=== PATIENT | female | born 1945 | race American Indian/Alaskan Native ===

== ENCOUNTER 2018-03-24 06:24 | Inpatient (IN) | payer MEDICARE ==
[2018-03-24 06:48] VITALS: BMI 30.8
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
--- NOTE | 2018-03-24 07:40 | CP.PCM.CON ---
History of Present Illness - History of Present Illness History of Present Illness: 72F with right hip DJD failed conservative mgmt and elected for THR. Cardiology clearance on the chart, hx of afib Patient is allergic to fruits/vegetables with high ascorbic acid content since child (oranges, tomatoes, pickles) No recent illness NO history of DVT/bleeding disorder, CAD/PVD, stents, CVA/TIA, seizure disorder Review of Systems - Review of Systems All systems: reviewed and no additional remarkable complaints except - Musculoskeletal Musculoskeletal: As Per HPI Past Patient History - Past Medical History & Family History Past Medical History?: Yes Past Family History: Reviewed and not pertinent - CARDIAC Hx Atrial Fibrillation: Yes (paroxysmal) Other/Comment: history of sinus bradycardia - MUSCULOSKELETAL/RHEUMATOLOGICAL Hx Herniated Disk: Yes Hx Osteoarthritis: Yes - SURGICAL HISTORY Hx Cataract Extraction: Yes Hx Cholecystectomy: Yes Hx Joint Replacement: Yes (R TKR) Hx Orthopedic Surgery: Yes (L rotator cuff) Hx Vascular Access Device: Yes (laminectomy 1992 1997) Meds Allergies/Adverse Reactions: Allergies Allergy/AdvReac Type Severity Reaction Status Date / Time vit C Allergy RASH Uncoded 03/24/18 06:46 - Medications Medications: Current Medications Tranexamic Acid 1,000 mg/ (Sodium Chloride) 110 mls @ 12.5 mls/hr IVPB Q2H [facility] Stop: 03/24/18 11:44 Physical Exam - Constitutional Appears: Well, No Acute Distress - Head Exam Head Exam: ATRAUMATIC - Neck Exam Neck exam: Positive for: Full Rom - Respiratory Exam Respiratory Exam: NORMAL BREATHING PATTERN - Cardiovascular Exam Additional comments: +DP/PT pulses calves soft NT neg homans 8mm RLE short leg length discrepancy +ROM ankle/toes sensation intact - Expanded Lower Extremities Exam Right Hip exam: shortening Knee exam: full ROM Ankle exam: FULL ROM Neuro vacular tendon exam: no vascular compromise - Neurological Exam Neurological exam: Alert, Oriented x3 - Psychiatric Exam Psychiatric exam: Normal Affect, Normal Mood - Skin Skin Exam: Dry, Intact, Normal Color, Warm Assessment & Plan - Assessment and Plan (Free Text) Assessment: 72F with right hip DJD failed conservative mgmt and elected for THR T&C NPO for OR cont home meds Surgery delayed due to leak in OR room for possibility of contamination. Patient had already received spinal and sedation, but had not been induced yet when leak was noted. Patient transferred to recovery. Per Dr. Andrade, surgery cancelled. All equipment needs to reprocessed, leak needs to be fixed, and room needs to be terminally cleaned. There is only one room that can accommodate the traction extension on the table. Patient notified of reason for cancelled per discussion with Dr. Andrade. Patient will be discharged home after recovered from spinal. Patient given rx for Tylenol with codeine per Dr. Andrade request. [place] RESIDENT DIRECTOR patient report reviewed, last rx 10/2017 Dr. Wilkinson for percocet #150. This physician per search has suspended license,so patient presumed to no longer be under any contract for pain mgmt. Patient counseled on the risks of addiction, physical or psychological dependence, and overdose associated with opioid drugs and the danger of taking opioid drugs with alcohol and other central nervous system depressants, and cautioned patient on storage and disposal. Addendum: rescheduled for 03/[address] Andrade. Admitted overnight. LEWIS Russell
[2018-03-24] MEDS ORDERED: Lactated Ringer's 1,000 ML IV ONE (07:45)
[2018-03-24] MEDS ORDERED: ePHEDrine 50 mg/ml Inj ONE (08:09)
[2018-03-24] MEDS ORDERED: Phenylephrine 10 mg/ml Inj ONE (08:10)
[2018-03-24] MEDS ORDERED: Lactated Ringer's 1,000 ML IV SCH ×2 (09:00→10:00)
[2018-03-24] MEDS ORDERED: Tranexamic Acid 1,000 MG in Sodium Chloride 0.9% 100 ML IVPB SCH (09:00)
[2018-03-24] MEDS ORDERED: Acetaminophen/Cod NO 4 TAB PO PRN (09:39)
[2018-03-24] MEDS ORDERED: Acetaminophen-Codeine 300/30 mg Tab PO PRN (09:44)
--- NOTE | 2018-03-24 14:20 | CP.PCM.CON ---
History of Present Illness - History of Present Illness History of Present Illness: THE PATIENT IS A 72 YEAR OLD FEMALE WHO ADMITTED TODAY FOR RIGHT THR DUE TO SEVERE OA. SHE ALSO HAS A HISTORY OF HYPERTENSION AND ATRIAL FIBRILLATION IN THE PAST. SHE WAS ADMITTED TO SAME DAY SURGERY BUT SURGERY HAD TO BE CANCELLED TODAY DUE TO AN OR CEILING LEAK AND IT WILL BE DONE IN THE MORNING. CARDIOLOGY WAS ASKED TO SEE HER BY DR WEINER. SHE DENIES CAD CHEST PAIN, SOB OR PALPITATIONS. PAST SURGERIES INCLUDE A RIGHT KNEE REPLACEMENT, BACK SURGERY, LEFT SHOULDER SURGERY AND RIGHT CARPEL TUNNEL SURGERY. Past Patient History - Past Medical History & Family History Past Medical History?: Yes - Past Social History Smoking Status: Never Smoked Chewing Tobacco Use: No Cigar Use: No Alcohol: None Drugs: Denies - CARDIAC Hx Cardiac Disorders: No Hx Angina: No Hx Atrial Fibrillation: Yes Hx Cardia Arrhythmia: No Hx Circulatory Problems: No Hx Congestive Heart Failure: No Hx Heart Attack: No Hx Heart Murmur: No Hx Heart Transplant: No Hx Hypercholesterolemia: No Hx Hypertension: Yes Hx Hypotension: No Hx Internal Defibrillator: No Hx Mitral Valve Prolapse: No Hx Pacemaker: No Hx Peripheral Edema: No Hx Peripheral Vascular Disease: No - PULMONARY Hx Respiratory Disorders: No Hx Asthma: No Hx Bronchitis: No Hx Chronic Obstructive Pulmonary Disease (COPD): No Hx Emphysema: No Hx Lung Cancer: No Hx Pneumonia: No Hx Pulmonary Edema: No Hx Pulmonary Embolism: No Hx Respiratory Aspiration: No Hx Respiratory Tract Infection: No Hx Sleep Apnea: No Hx Tuberculosis: No - HEENT Hx Cataracts: Yes - HEMATOLOGICAL/ONCOLOGICAL Hx Blood Transfusions: Yes Hx Blood Transfusion Reaction: No - MUSCULOSKELETAL/RHEUMATOLOGICAL Hx Herniated Disk: Yes Hx Osteoarthritis: Yes - SURGICAL HISTORY Hx Cataract Extraction: Yes Hx Cholecystectomy: Yes Hx Joint Replacement: Yes (R TKR) Hx Orthopedic Surgery: Yes (L rotator cuff) Hx Vascular Access Device: Yes (laminectomy 1992 1997) - ANESTHESIA Hx Anesthesia: Yes Hx Anesthesia Reactions: No Has any member of the family had a problem w/ anesthesia?: No Meds Allergies/Adverse Reactions: Allergies Allergy/AdvReac Type Severity Reaction Status Date / Time vit C Allergy RASH Uncoded 03/24/18 06:46 - Medications Medications: Current Medications Acetaminophen/Codeine Phosphate (Tylenol/Codeine 300 Mg/30 Mg) 1 tab PO Q4 PRN PRN Reason: Pain, moderate (4-7) Famotidine (Pepcid) 20 mg PO DAILY [facility] Lactated Ringer's (Lactated Ringer's) 1,000 mls @ 75 mls/hr IV .[id number] [facility] Lactated Ringer's (Lactated Ringer's) 1,000 mls @ 75 mls/hr IV .[id number] [facility] Nadolol (Corgard) 20 mg PO DAILY [facility] Physical Exam - Respiratory Exam Respiratory Exam: Clear to Auscultation Bilateral - Cardiovascular Exam Cardiovascular Exam: REGULAR RHYTHM, +S1, +S2 - Extremities Exam Additional comments: NO LE EDEMA - Additional Findings Additional findings: EKG SINUS BRADYCARDIA AND SINUS ARRYTHMIA RECENT NUCLEAR STRESS TEST WAS NEGATIVE FOR ISCHEMIA. LVEF OF 70% Results - Vital Signs Recent Vital Signs: Last Vital Signs Temp 96.8 F L 03/24/18 10:15 Pulse 51 L 03/24/18 10:15 Resp 20 03/24/18 10:15 BP 122/65 03/24/18 10:15 Pulse Ox 99 03/24/18 10:15 - Labs Labs: Laboratory Results - last 24 hr 03/24/18 03/24/18 07:09 08:03 Blood Type A POSITIVE Blood Type Confirm A POSITIVE Antibody Screen Positive Antibody Identification Anti E Antigen Identification E Antigen - NEGATIVE Crossmatch See Detail BBK History Checked No verified bt Assessment & Plan - Assessment and Plan (Free Text) Assessment: SEVERE RIGHT HIP OA HYPERTENSION HISTORY OF ATRIAL FIBRILLATION-NOW IN NS[facility] Plan: THE PATIENT IS CLEARED FOR RIGHT HIP SURGERY CONTINIE CORGARD ECHO ORDERED
--- NOTE | 2018-03-24 17:04 | CT ---
Date of service: 03/24/2018 PROCEDURE: Move CT right lower extremity attention right hip HISTORY: PRE-OP unilateral primary osteoarthritis right hip COMPARISON: March 24, 2018. TECHNIQUE: 2.5 mm axial acquisition and display. Coronal and sagittal reconstructions. Dose report (mGy-cm): 804.87 3D volume rendering sequences. FINDINGS: There are no osseous abnormalities to suggest fracture. The pelvic ring is intact. Preserved femoral-acetabular relationship. Negative study for protrusio, subluxation or dislocation. Degenerative changes: Mild IMPRESSION: Mild degenerative changes right hip. Otherwise unremarkable study.
--- NOTE | 2018-03-24 17:09 | RAD ---
PROCEDURE: Right Hip Radiographs. HISTORY: PRE-OP COMPARISON: None. FINDINGS: BONES: No acute fracture. JOINTS: Narrowing of both hips. Pubic symphyseal narrowing and mild sclerosis. SOFT TISSUES: Normal. OTHER FINDINGS: None. IMPRESSION: No demonstrated fracture or dislocation. Degenerative changes.
[2018-03-25 02:45] LABS: HEMOGLOBIN 10.3 g/dL (12.0-16.0); MEAN CELL VOLUME 86.4 fl (81.0-99.0); MEAN CORPUSCULAR HEMOGLOBIN 28.5 pg (27.0-31.0); RBC 3.62 Mil/uL (3.80-5.20); RED CELL DISTRIBUTION WIDTH 13.7 % (11.5-14.5); WHITE BLOOD COUNT 5.6 K/uL (4.8-10.8)
[2018-03-25 02:54] LABS: ALB/GLOB RATIO 1.1 (1.0-2.1); ALBUMIN 3.8 g/dL (3.5-5.0); ALT/SGPT 12 U/L (9-52); AST/SGOT 31 U/L (14-36); BLOOD UREA NITROGEN 13 mg/dl (7-17); GFR AFRICAN-AMERICAN > 60; GFR NON-AFRICAN AMERICAN > 60
[2018-03-25 03:05] LABS: INR 1.1 (0.9-1.2); PROTHROMBIN TIME 12.1 Seconds (9.8-13.1)
[2018-03-25] MEDS ORDERED: Potassium Chloride 20 mEq 100 ML IVPB SCH (04:00)
[2018-03-25] MEDS: Potassium CL 10 MEQ/50 ML 50 ML IVPB SCH ×2 (04:33→14:35)
[2018-03-25] MEDS ORDERED: GELATIN SPONGE,ABSORB/PORCINE 1 EACH SPONGE TP ONE (05:23)
[2018-03-25] MEDS ORDERED: Thrombin Topical 5,000 Int Units Spray Kit ONE (05:23)
[2018-03-25] MEDS ORDERED: Lactated Ringer's 1,000 ML IV ONE ×2 (06:15)
[2018-03-25] MEDS ORDERED: Tranexamic Acid 1,000 MG in Sodium Chloride 0.9% 100 ML IVPB ONE ×2 (06:30→08:30)
[2018-03-25] MEDS ORDERED: Tranexamic Acid 1,000 MG in Sodium Chloride 0.9% 100 ML IVPB SCH (06:30)
[2018-03-25] MEDS ORDERED: Propofol 10 mg/ml Inj (20 ML) ONE (06:34)
[2018-03-25] MEDS ORDERED: Midazolam 2 MG/2 ML VIAL ONE (06:34)
[2018-03-25] MEDS ORDERED: Etomidate 20 mg/10ml Inj IV ONE (06:37)
[2018-03-25] MEDS ORDERED: Lidocaine 4% (Laryng-O-Jet) Kit MM ONE (06:38)
[2018-03-25] MEDS ORDERED: Rocuronium 10 mg/ml (5 ml) ONE (06:59)
--- NOTE | 2018-03-25 07:29 | CP.PCM.PN ---
Subjective - Date & Time of Evaluation Date of Evaluation: 03/25/18 Time of Evaluation: 07:00 - Subjective Subjective: NO CHEST PAIN OR SOB HAD SOME NAUSEA AND VOMITING Objective - Vital Signs/Intake and Output Vital Signs (last 24 hours): Temp Pulse Resp BP Pulse Ox 97.3 F L 76 18 142/71 98 03/24/18 23:53 03/25/18 01:35 03/24/18 23:53 03/25/18 01:35 03/24/18 23:53 - Medications Medications: Current Medications Acetaminophen/Codeine Phosphate (Tylenol/Codeine 300 Mg/30 Mg) 1 tab PO Q4 PRN PRN Reason: Pain, moderate (4-7) Famotidine (Pepcid) 20 mg PO DAILY [facility] Lactated Ringer's (Lactated Ringer's) 1,000 mls @ 75 mls/hr IV .[id number] [facility] Last Admin: 03/24/18 21:14 Dose: 75 mls/hr Lactated Ringer's (Lactated Ringer's) 1,000 mls @ 75 mls/hr IV .[id number] [facility] Potassium Chloride (Potassium Cl 10meq/50ml Sterile Water) 50 mls @ 50 mls/hr IVPB Q1H [facility] Stop: 03/25/18 08:14 Last Admin: 03/25/18 04:33 Dose: 50 mls/hr Tranexamic Acid 1,000 mg/ (Sodium Chloride) 110 mls @ 13.75 mls/hr IVPB ONCE ONE Stop: 03/25/18 16:29 Nadolol (Corgard) 20 mg PO DAILY [facility] Last Admin: 03/25/18 01:35 Dose: 20 mg - Labs Labs: 03/25/18 02:00 03/25/18 02:00 PT 12.1 Seconds (9.8-13.1) 03/25/18 02:00 INR 1.1 (0.9-1.2) 03/25/18 02:00 APTT 27.0 Seconds (25.6-37.1) 03/25/18 02:00 - Respiratory Exam Respiratory Exam: Clear to Ausculation Bilateral - Cardiovascular Exam Cardiovascular Exam: REGULAR RHYTHM, +S1, +S2 - Additional Findings Additional findings: ECHO GOOD LV FUNCTION, LAE, TR Assessment and Plan - Assessment and Plan (Free Text) Assessment: HYPERTENSION HISTORY OF ATRIAL FIBRILLATION RIGHT HIP OA Plan: FOR SURGERY TODAY
[2018-03-25] MEDS ORDERED: Sodium Chloride 0.9% 1,000 ML IV ONE ×2 (07:30)
[2018-03-25] MEDS ORDERED: EPINEPHrine 1 mg/ml (1:1000) Inj ONE (07:46)
[2018-03-25] MEDS ORDERED: Absorbable Gelatin Sponge Size 12-7 ONE (07:54)
[2018-03-25] MEDS ORDERED: Absorbable Gelatin Sponge Size 12-7 TP ONE ×2 (08:00→09:00)
[2018-03-25] MEDS ORDERED: Absorbable Gelatin Sponge Size 100 TP ONE ×2 (08:00→09:00)
[2018-03-25] MEDS ORDERED: Thrombin Topical 5,000 Int Units Spray Kit TOP ONE ×4 (08:00→09:00)
[2018-03-25] MEDS ORDERED: ePHEDrine 50 mg/ml Inj ONE (08:33)
[2018-03-25] MEDS ORDERED: Dexamethasone 4 mg/1 ml ONE (08:45)
--- NOTE | 2018-03-25 08:59 | CP.PCM.PN ---
<Rachna Flores - Last Filed: 03/25/18 17:25> Subjective - Date & Time of Evaluation Date of Evaluation: 03/25/18 Time of Evaluation: 05:00 - Subjective Subjective: Patient was seen and examined at bedside with Dr. Li. She is s/p Right total hip replacement surgery and is post -anethesia. Patient reports she is very sleepy. She reports that she has appetite and was able to stomach some jello. She reports some mild nausea but says she received medication for it and it is slowly subsiding. Pain is located at the right knee radiating to the right hip, rated at a 6-7/10. She denies headache, vision changes, chest pain, SOB, fever chills, and vomiting. Patient has not had a bowel movement yet but she states she feels bloated and gassy. Patient was counseled on incentive spirometry. Objective - Vital Signs/Intake and Output Vital Signs (last 24 hours): Temp Pulse Resp BP Pulse Ox 97.3 F L 76 18 142/71 98 03/24/18 23:53 03/25/18 01:35 03/24/18 23:53 03/25/18 01:35 03/24/18 23:53 Intake and Output: 03/25/18 03/25/18 06:59 18:59 Intake Total 1000 0 Balance 1000 0 - Medications Medications: Current Medications Acetaminophen/Codeine Phosphate (Tylenol/Codeine 300 Mg/30 Mg) 1 tab PO Q4 PRN PRN Reason: Pain, moderate (4-7) Cholecalciferol (Vitamin D) 2,000 intlu PO DAILY [facility] Famotidine (Pepcid) 20 mg PO DAILY [facility] Lactated Ringer's (Lactated Ringer's) 1,000 mls @ 75 mls/hr IV .[id number] [facility] Last Admin: 03/24/18 21:14 Dose: 75 mls/hr Lactated Ringer's (Lactated Ringer's) 1,000 mls @ 75 mls/hr IV .[id number] [facility] Tranexamic Acid 1,000 mg/ (Sodium Chloride) 110 mls @ 13.75 mls/hr IVPB ONCE ONE Stop: 03/25/18 16:29 Nadolol (Corgard) 20 mg PO DAILY [facility] Last Admin: 03/25/18 01:35 Dose: 20 mg - Labs Labs: 03/25/18 02:00 03/25/18 02:00 PT 12.1 Seconds (9.8-13.1) 03/25/18 02:00 INR 1.1 (0.9-1.2) 03/25/18 02:00 APTT 27.0 Seconds (25.6-37.1) 03/25/18 02:00 - Constitutional Appears: Well, Non-toxic, No Acute Distress - Head Exam Head Exam: NORMAL INSPECTION - Eye Exam Eye Exam: Normal appearance - ENT Exam ENT Exam: Mucous Membranes Moist, Normal Oropharynx - Neck Exam Neck Exam: Normal Inspection. absent: Lymphadenopathy, Tenderness, Thyromegaly - Respiratory Exam Respiratory Exam: Clear to Ausculation Bilateral, NORMAL BREATHING PATTERN. absent: Decreased Breath Sounds, Prolonged Expiratory Phase, Rales, Rhonchi, Wheezes, Respiratory Distress, Stridor - Cardiovascular Exam Cardiovascular Exam: REGULAR RHYTHM, RRR, +S1, +S2. absent: Clicks, Diastolic murmur, Gallop, JVD, Rubs, Murmur - GI/Abdominal Exam GI & Abdominal Exam: Soft, Hyperactive Bowel Sounds. absent: Distended, Firm, Guarding, Rigid, Tenderness, Mass, Organomegaly, Pulsatile Mass, Rebound - Extremities Exam Extremities Exam: Normal Inspection (+ clean bandage wound on the right hip. Right knee has an amelia bandage wrap. ) - Neurological Exam Neurological Exam: Alert, Awake, Oriented x3 - Psychiatric Exam Psychiatric exam: Normal Affect, Normal Mood - Skin Skin Exam: Dry, Intact, Normal Color, Warm Assessment and Plan (1) Primary osteoarthritis of right hip Status: Acute (2) Paroxysmal atrial fibrillation Status: Acute (3) Hypertension Status: Chronic (4) DVT prophylaxis Status: Acute - Assessment and Plan (Free Text) Assessment: 72 yo AAF with history of HTN, A Fib presents s/p Right Total hip replacement. Plan: 1. Primary Osteoarthritis of the Right Hip - total right hip replacement performed 03/25/18, Ortho: Dr. Andrade - Pain management: Dilaudid 0.5 Q3 prn or Oxycodone 5mg Q4h prn. - Antibiotics: Cefazolin 2gm 2. Paroxysmal Atrial Fibrillation. - At present, sinus rhythm. - Patient is not currently taking Multaq 400mg for two weeks because of side effects including rash of bilateral extremities, more so on the fingers and feet. - Continue Nadolol 20 mg PO daily if heart rate is >50; Hold if HR <50. - Patient not currently on anticoagulation medications!! - Cardiac Consult appreciated. 3. Hypertension - Continue Nadolol 20mg po daily if heart rate is >55; hold if HR <55. 4. DVT prophylaxis - SCD's and lovenox. <Reny Li - Last Filed: 03/25/18 17:36> Objective - Vital Signs/Intake and Output Vital Signs (last 24 hours): Temp Pulse Resp BP Pulse Ox 97.3 F L 111 H 20 129/73 97 03/25/18 16:12 03/25/18 16:12 03/25/18 16:12 03/25/18 16:12 03/25/18 16:12 Intake and Output: 03/25/18 03/25/18 06:59 18:59 Intake Total 650 1000 Balance 650 1000 - Medications Medications: Current Medications Acetaminophen (Tylenol 325mg Tab) 975 mg PO Q8 [facility] Last Admin: 03/25/18 16:28 Dose: 975 mg Cholecalciferol (Vitamin D) 2,000 intlu PO DAILY [facility] Last Admin: 03/25/18 09:00 Dose: Not Given Enoxaparin Sodium (Lovenox) 40 mg SC DAILY [facility] PRN Reason: Protocol Famotidine (Pepcid) 20 mg PO DAILY [facility] Last Admin: 03/25/18 13:12 Dose: 20 mg Ferrous Sulfate (Feosol) 325 mg PO BID [facility] Last Admin: 03/25/18 16:24 Dose: 325 mg Hydromorphone HCl (Dilaudid) 0.5 mg IVP Q3 PRN PRN Reason: Pain, severe (8-10) Last Admin: 03/25/18 15:03 Dose: 0.5 mg Lactated Ringer's (Lactated Ringer's) 1,000 mls @ 75 mls/hr IV .[id number] [facility] Last Admin: 03/24/18 21:14 Dose: 75 mls/hr Lactated Ringer's (Lactated Ringer's) 1,000 mls @ 75 mls/hr IV .[id number] [facility] Cefazolin Sodium/Dextrose (Ancef Iv 2 Gm Duplex) 2 gm in 50 mls @ 50 mls/hr IVPB Q8 [facility] PRN Reason: Protocol Stop: 03/26/18 09:59 Last Admin: 03/25/18 16:24 Dose: 50 mls/hr Lactated Ringer's (Lactated Ringer's) 1,000 mls @ 70 mls/hr IV .[id number] [facility] Nadolol (Corgard) 20 mg PO DAILY [facility] Last Admin: 03/25/18 01:35 Dose: 20 mg Ondansetron HCl (Zofran Inj) 4 mg IVP Q4 PRN PRN Reason: Nausea/Vomiting Last Admin: 03/25/18 14:17 Dose: 4 mg Oxycodone HCl (Oxycodone Immediate Release Tab) 5 mg PO Q4 PRN PRN Reason: Pain, moderate (4-7) Last Admin: 03/25/18 13:12 Dose: 5 mg Senna/Docusate Sodium (Senokot S 50 Mg-8.6 Mg) 2 tab PO HS [facility] - Labs Labs: 03/25/18 10:48 03/25/18 10:48 PT 12.1 Seconds (9.8-13.1) 03/25/18 02:00 INR 1.1 (0.9-1.2) 03/25/18 02:00 APTT 27.0 Seconds (25.6-37.1) 03/25/18 02:00 Attending/Attestation - Attestation I have personally seen and examined this patient.: Yes I have fully participated in the care of the patient.: Yes I have reviewed all pertinent clinical information, including history, physical exam and plan: Yes
[2018-03-25] MEDS: Cholecalciferol 1,000 INTLU TAB PO SCH (09:00)
--- NOTE | 2018-03-25 09:28 | CARD ---
APPROVED REPORT Date of service: 03/24/2018 EXAM: Two-dimensional and M-mode echocardiogram with Doppler and color Doppler. Other Information Quality : GoodRhythm : NSR INDICATION Pre-Op 2D DIMENSIONS IVSd1.19 (0.7-1.1cm)LVDd4.29 (3.9-5.9cm) LVOT Diameter1.88 (1.8-2.4cm)PWd0.93 (0.7-1.1cm) IVSs1.33 (0.8-1.2cm)LVDs2.92 (2.5-4.0cm) FS (%) 31.9 %PWs1.47 (0.8-1.2cm) M-Mode DIMENSIONS Left Atrium (MM)4.12 (2.5-4.0cm)IVSd0.97 (0.7-1.1cm) Aortic Root2.44 (2.2-3.7cm)LVDd5.00 (4.0-5.6cm) Aortic Cusp Exc.1.68 (1.5-2.0cm)PWd1.03 (0.7-1.1cm) IVSs1.47 cmFS (%) 54 % LVDs2.29 (2.0-3.8cm)PWs1.35 cm Aortic Valve AoV Peak Bobrzxle244.7cm/sAoV VTI35.1cmAO Peak GR.11mmHg LVOT Peak Sseqgfhi700.0cm/sLVOT VTI27.35cmAO Mean GR.6mmHg DAMARI (VMAX)0.37iv4NZV (VTI)1.07cm2 Mitral Valve MV E Fvlyikrn22.6cm/sMV DECEL [id number] A Rcknnmfn85.5cm/s MV GHN55wbM/A ratio0.8MVA (PHT)2.85cm2 TDI Lateral E' Peak V6.93cm/sMedial E' Peak V7.90cm/sE/Lateral E'10.5 E/Medial E'9.2 Pulmonary Valve PV Peak Smzweqcm25.6cm/s Tricuspid Valve TR Peak Pzremgck372pj/sRAP HJPNLFIN81igUiRD Peak Gr.33mmHg WYKI36jjPr LEFT VENTRICLE The left ventricle is normal size. There is borderline to mild concentric left ventricular hypertrophy. The left ventricular function is normal. The left ventricular ejection fraction is within the normal range. The Ejection Fraction is 60-65%. There is normal LV segmental wall motion. Transmitral Doppler flow pattern is Grade I-abnormal relaxation pattern. RIGHT VENTRICLE The right ventricle is normal size. There is normal right ventricular wall thickness. The right ventricular systolic function is normal. ATRIA The left atrium is mildly dilated. The right atrium is borderline dilated. The interatrial septum is intact with no evidence for an atrial septal defect. AORTIC VALVE The aortic valve is mildly sclerotic. There is trace aortic regurgitation. There is no aortic valvular stenosis. MITRAL VALVE The mitral valve is thickened but opens well. There is no mitral valve stenosis. Mitral regurgitation is trace to mild. TRICUSPID VALVE The tricuspid valve leaflets are thickened , but open well. There is mild tricuspid regurgitation. PULMONIC VALVE The pulmonic valve is not well visualized. There is no pulmonic valvular regurgitation. GREAT VESSELS The aortic root is normal in size. The IVC is dilated. PERICARDIAL EFFUSION The pericardium appears normal. There is no pleural effusion. <Conclusion> The left ventricular function is normal. The left ventricular ejection fraction is within the normal range. The Ejection Fraction is 60-65%. Transmitral Doppler flow pattern is Grade I-abnormal relaxation pattern. Mitral regurgitation is trace to mild.
--- NOTE | 2018-03-25 10:10 | PCM.SURG1 ---
Surgeon's Initial Post Op Note - Surgeon's Notes Surgeon: Raymond Hourly Team Members: ABDOULAYE George/ 2nd za- Delbert Feliz Type of Anesthesia: General Endo, Spinal, Block Regional Anesthesia Administered By: DR Greg Raphael Pre-Operative Diagnosis: Primary Osteoarthritis Right hip Operative Findings: as above. severe synovitis Post-Operative Diagnosis: as above Operation Performed: R THR. femoral neck osteotomy\. partial synovectomy. rreleae iliopsoas tendon. autograft bone graft to acetabulum. applx wound vac Specimen/Specimens Removed: laila /synovium'/cartilage Estimated Blood Loss: EBL {In ML}: 455 Drains Used: Wound Vac Post-Op Condition: Fair Date of Surgery/Procedure: 03/25/18 Time of Surgery/Procedure: 07:40 (time in room/anaesthesia induction time 635)
--- NOTE | 2018-03-25 10:38 | PCM.ANESB3 ---
Femoral Nerve Block - Femoral Nerve Block Date of Procedure: 03/25/18 Anesthesiologist: Donavon Pre-Procedure Diagnosis: Right hip pain Post-Procedure Diagnosis: Same Procedure Performed: Femoral Nerve Block Right - Procedure Femoral Nerve Block: The procedure was explained to the patient that it is for the post-operative pain management. Consent was obtained after a thorough discussion with the patient regarding the benefits and possible complications of local anesthetic block of the femoral nerve at the inguinal crease area. The patient was brought to the operating room and standard monitors were applied. Time-out was held with the circulating nurse to confirm the correct surgery and the appropriate block. After the surgery was completed and dressing applied, patient was placed in supine position with fully extended lower extremities and the ____right____ groin exposed. The femoral artery was then carefully palpated. The ultrasound transducer was then applied to this area in the transverse plane and the femoral nerve was visualized lateral to the femoral artery and underneath the fascia iliaca. The landmark is the plane above iliacus muscle and beneath the fascia ilaca. After thorough identification, the inguinal crease area was prepped with Betadine solution three times and 1 % Lidocaine was injected subcutaneously for topical anesthesia. At this point, a #22 gauge Stimuplex 2-inch needle was inserted immediately lateral to the femoral artery pulse at the inguinal crease and advanced perpendicularly. The needle was inserted to the ultrasound transducer in-plane towards the femoral nerve in a [id number] direction. Needle advancement was performed carefully under direct ultrasound visualization. The target is under the fascia iliaca and above the iliacus muscle. After negative aspiration, ___5__cc of __.25___% ____Bupivacaine was injected and this was followed with ___25___ cc of ___.25____ % __bupivacaine . Under ultrasound guidance the local anesthetics were observed spreading below fascia iliaca both laterally and medially. The needle was removed intact and sterile dressing was applied. The patient had stable vital signs, was conscious and in no apparent distress. The patient tolerated the fascial iliac block well and was transported to PACU.
[2018-03-25] MEDS ORDERED: HYDROmorphone 0.5 mg/0.5 ml ISec IVP PRN ×3 (10:40→13:09)
[2018-03-25 10:51] LABS: HEMOGLOBIN 11.8 g/dL (12.0-16.0); MEAN CELL VOLUME 86.3 fl (81.0-99.0); MEAN CORPUSCULAR HEMOGLOBIN 29.4 pg (27.0-31.0); RBC 4.03 Mil/uL (3.80-5.20); RED CELL DISTRIBUTION WIDTH 13.5 % (11.5-14.5); WHITE BLOOD COUNT 12.1 K/uL (4.8-10.8)
[2018-03-25 11:05] LABS: BLOOD UREA NITROGEN 10 mg/dl (7-17); GFR AFRICAN-AMERICAN > 60; GFR NON-AFRICAN AMERICAN > 60
--- NOTE | 2018-03-25 11:22 | CARD ---
APPROVED REPORT Date of service: 03/24/2018 EKG Measurement Heart [id number] MD [id number] <Conclusion> Sinus bradycardia with marked sinus arrhythmia Otherwise normal ECG
--- NOTE | 2018-03-25 11:34 | RAD ---
Date of service: 03/25/2018 PROCEDURE: Fluoroscopy in excess of 1 hour. HISTORY: RIGHT HIP COMPARISON: None TECHNIQUE: Standard protocol for this study/examination. FINDINGS: Total fluoroscopic time (continuous mode) utilized during the procedure 28.5 (seconds) IMPRESSION: Submitted images from the current procedure: 7.0.
--- NOTE | 2018-03-25 12:22 | RAD ---
PROCEDURE: Right Hip Radiographs. HISTORY: s/p R GAIL COMPARISON: Right hip with pelvis radiographs 03/24/2018. FINDINGS: BONES: Bases now status post right hip arthroplasty with right hip/ femoral hardware in good apparent position. Postoperative changes seen in local soft tissues with skin aura noted laterally. No interval acute fracture or destructive bony lesion appreciable. JOINTS: Status post right GAIL, intact. No dislocation. SOFT TISSUES: As above in bone section. OTHER FINDINGS: None. IMPRESSION: Postop changes seen in local soft tissues status post right hip arthroplasty. No dislocation or interval fracture appreciable.
[2018-03-25] MEDS: oxyCODONE 5 mg Immediate Release Tab PO PRN ×2 (13:12→22:20)
[2018-03-25] MEDS: HYDROmorphone 1 mg/ml ISec IVP PRN ×2 (15:03→20:07)
[2018-03-25] MEDS: ceFAZolin IV 2 gm in Dextrose 2 GM/50 ML BAG IVPB SCH (16:24)
[2018-03-25] MEDS: Lactated Ringer's 1,000 ML IV SCH (17:42)
[2018-03-25] MEDS ORDERED: Docusate-Senna 50 mg-8.6 mg Tab PO SCH (22:00)
--- NOTE | 2018-03-25 22:54 | OP ---
PROCEDURE DATE: 03/25/2018 PREOPERATIVE DIAGNOSIS: 1. Primary osteoarthritis of the right hip. 2. Synovitis. 3. Capsular contracture and iliopsoas tendon contracture. POSTOPERATIVE DIAGNOSES: 1. Primary osteoarthritis of the right hip. 2. Synovitis of the right hip. 3. 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 PROCEDURES: 1. Right total hip replacement arthroplasty, anterior approach. 2. Femoral neck osteotomy. 3. Hip arthrotomy and synovectomy. 4. Release, iliopsoas tendon. 5. Autograft bone graft to the acetabulum. 6. Application of VIDYA wound VAC. SURGEON: Patrick Andrade MD DIVORCE ATTORNEY: Shakila Pardo, certified registered nursing first assist. SECOND PARA MACHINE OPERATOR: Delbert Feliz PA-C. ANESTHESIA: Spinal, general, and regional anesthesia. ANESTHESIOLOGIST: Estuardo Raphael MD BLOOD LOSS: 450 mL. COMPLICATIONS: No complications. DRAIN: Application of wound VAC, VIDYA protective drain. 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 The patient is status post lumbar surgery and this is not sciatic pain or radicular pain or low back pain. The patient has primary right hip pain, restricted range of motion. The patient has failed conservative management consisting of activity modification, weight loss, and therapy. Pros, cons, risks and benefits of total hip replacement arthroplasty were discussed. Possibility of mechanical failure, infection, thromboembolic disease, possibility of secondary or tertiary surgery was discussed. The patient can no longer stand the discomfort and wished the surgery to be accomplished. Again the possibility of sepsis, mechanical failure, infection, thromboembolic disease, cardiac complications, acute abnormality, leg-length inequality is discussed. The patient can no longer stand the discomfort, wished that the surgery be accomplished. Possibility of is discussed. OPERATIVE PROCEDURE: After having obtained informed consent in the above fashion, after the satisfactory induction of spinal and general anesthesia by Dr. Raphael and later regional anesthesia, after having identified side, site, and procedure, and a critical pause/time-out, the patient identified as Lauren Sullivan, is placed in the supine position in the [facility] [place]. Great care was taken and all bony prominences were well padded. The panniculus is taped out of the way, and under the surgeon's direction, the fluoroscope was positioned. Video images were generated of both the right and left hip. Video images were generated. Therapeutic decisions and treatment modalities were accomplished therefrom. It should be noted that the intraoperative x-rays were part of the extensive planning for the intraoperative femoral osteotomy, which is given a separate distinction as CPT code because of the complexity of the osteotomy of the femoral neck to short leg length inequality. Operative procedure then advances: After the satisfactory induction of the anesthetic, after having positioned the patient in the traction AMIS positioner, the right lower extremity was prepped and draped in usual fashion for anterior approach hip surgery. The incision was described 1 fingerbreadth or 1 cm distal to the ASIS and 3 fingerbreadths or 3 cm posterior. The incision was described superficial to the tensor fascia femoris muscle. Skin incision was carried down through the skin and subcutaneous tissue. The retractors were placed. The fascia superficial to the tensor fascia femoris is identified. The Allis clamp was affixed to the anterior aspect of the fascia and the tensor fascia femoris muscle is taken down from the investing fascia. This having been accomplished, the modified Weitlaner retractor, Medacta, and modified Adson-Perry retractor was placed, and the belly of the rectus femoris was identified as well as the posterior aspect. Hemostasis controlled with the Aquamantys. This having been accomplished, the dissection is carried out posterior to the rectus femoris and that plane is developed. The Medacta retractor Adson-Perry is placed deeper and in a horizontal fashion, exposing the fascia superficial to the hip joint capsule. This having been accomplished, the reflected head of rectus femoris was identified and the reflected head of rectus femoris is elevated from medial to lateral. The Cobra retractor was placed. Further dissection was carried out at the margin of the acetabulum. This having been accomplished, hemostasis controlled with the Aquamantys. The fascia is carefully divided. Hemostasis of the lateral femoral circumflex vessels, especially the anterior branch of the lateral femoral circumflex vessel, is accomplished using the Aquamantys. Great care is taken to control the bleeding from these vessels. This having been accomplished, a capsulotomy was accomplished from the margin of the acetabulum, extending medially. External rotation is accomplished, and the dissection is carried down along the neck to the area of the intertrochanteric line. The intertrochanteric tubercle is identified. Dissection was then carried laterally to the area of the greater trochanter. The capsule was elevated. Medacta retractors were placed medially and laterally. Again reference is made to the intraoperative fluoroscopic views of the right hip. The osteotomy was carefully planned, and the osteotomy was accomplished angling medially to avoid osteotomized in the greater trochanter. This having been accomplished, the femoral neck osteotomy was accomplished. Traction was applied, and the 45-degree external rotation of the hip, the osteotome was placed in the cut femoral neck and rotated. The corkscrew was placed in the cut aspect of the femoral neck. This having been accomplished, releasing the capsular adhesions and capsular attachments, the femoral neck is removed from the acetabulum. It should be noted that the patient has severely tight capsule, and this having been accomplished, the bump was removed from the AMIS traction positioner to allow better exposure of the acetabulum. This having been accomplished, the pulvinar was controlled using the Aquamantys and the pulvinar was excised. The transverse acetabular ligament was identified, and the retractor was placed in the area of the reflected head of rectus femoris. This having been accomplished, the labrum was excised as well having excised the pulvinar. Sequential reaming is carried out from 44 mm to 50 mm. The reaming is carried out first medially, then superiorly and posteriorly. Further debridement of the articular cartilage posteriorly was accomplished with the malcolm. This having been accomplished, reaming was accomplished medially and then superiorly in the desired 45 degrees of abduction, and approximately 15 degrees of anteversion. Reaming is accomplished and denuded of articular cartilage, and this having been accomplished, reaming is denuded of articular cartilage. These are segregated and kept on the back table. This having been accomplished, a trial was accomplished. Cup was placed at 50 mm and found to be acceptably positioned. This having been accomplished, the 50-mm Medacta acetabular shell is impacted in approximately 45 degrees of abduction and 15 degrees of anteversion. It should be noted that autograft bone grafting was accomplished to the acetabulum prior to impaction of the cup. The reamings are denuded of articular cartilage, and great care was taken to separate the reamings from the articular cartilage. Bone grafting having been accomplished, the cup was found to be well positioned and passes the pelvic lift test. The pelvis was secured. The cup was secured in the path and the pelvis is elevated from the blade with the cup intact. This having been accomplished, the wound was thoroughly irrigated at this point in time with further external rotation of the femur. The pubofemoral ligament is identified and the pubofemoral ligament was released. The pubofemoral ligament having been released, at this point in time, the trochanteric piriformis fossa was identified, and great care was taken to release the capsular tissue region. Again, the capsule was found to be very thick and contracted. Iliopsoas tendon was identified and released as well. The iliopsoas tendon was found to be contracted. The ischial and ileal femoral ligaments were released. A great deal of time was taken. Hemostasis was controlled with the Aquamantys. This having been accomplished with further external rotation of the femur, the femur having been freed up, and this having been accomplished, a bone hook was used to grasp the cut back of the femur and it is delivered. The bump was reinserted. Extension of the femur was accomplished at this point in time. With further external rotation, the Betina retractors were placed. Abduction of the femur exposed at the cut neck. Further osteoplasty of the femoral cut neck is accomplished, and the bridge of bone between the neck and the trochanter is removed using the box chisel and the malcolm. This having been accomplished, the canal was entered using the malcolm and the rasp was used to find the canal. The rasp having found the canal, sequential broaching was carried out to a #3 broach. Trial is accomplished with a standard head 28 mm and 50 mm outer bearing polyethylene. The hip was reduced, found to be stable in all planes. At this point in time, again autograft bone grafting accomplished to the proximal femur. The proximal femur was exposed using the Betina pitchfork retractor. The Betina pitchfork retractor was employed, and at this point in time, the AMIS #3 femoral component was introduced with a 28 mm ceramic head and the 50 mm polyethylene outer bearing. The hip was reduced, found to be stable. At this point in time, the hemostasis was controlled using Aquamantys and a great deal of time was taken to control hemostasis with the Aquamantys and with the thrombin and Gelfoam. This having been accomplished, the hip having been reduced, the wound was thoroughly irrigated and the Eurocept is employed as well. Again hemostatic agent thrombin and Gelfoam was employed. The hemostatic agent having been employed, closures in layers, the fascia on the tensor fascia femoris was closed with 0-Quill, followed by 0 Vicryl, 2-0 Vicryl and aura for skin. At this point in time, the VIDYA dressing is cut, the size and the wound VAC VIDYA was applied to the wound. Compression dressing having been applied. Verification of position is offered on image intensification views. The patient is transferred from the operating table to the stretcher having tolerated the procedure well. The operative goal could not have been achieved without the assistantship of Shakila Pardo, certified registered nursing first assist, and second wardrobe assistant, Delbert Feliz PA-C. Patrick Andrade MD
[2018-03-26] MEDS: HYDROmorphone 1 mg/ml ISec IVP PRN ×4 (00:09→16:28)
[2018-03-26] MEDS: ceFAZolin IV 2 gm in Dextrose 2 GM/50 ML BAG IVPB SCH ×2 (00:16→08:06)
[2018-03-26] MEDS: oxyCODONE 5 mg Immediate Release Tab PO PRN ×2 (05:35→14:28)
[2018-03-26 06:46] LABS: HEMOGLOBIN 11.1 g/dL (12.0-16.0); MEAN CELL VOLUME 86.5 fl (81.0-99.0); MEAN CORPUSCULAR HEMOGLOBIN 29.3 pg (27.0-31.0); MEAN CORPUSCULAR HGB CONC 33.9 g/dL (33.0-37.0); RBC 3.8 Mil/uL (3.80-5.20); RED CELL DISTRIBUTION WIDTH 13.7 % (11.5-14.5); WHITE BLOOD COUNT 9.2 K/uL (4.8-10.8)
[2018-03-26 07:08] LABS: BLOOD UREA NITROGEN 11 mg/dl (7-17); CALCIUM 8.2 mg/dL (8.4-10.2); GFR AFRICAN-AMERICAN > 60; GFR NON-AFRICAN AMERICAN > 60
--- NOTE | 2018-03-26 07:24 | CP.PCM.PN ---
Subjective - Date & Time of Evaluation Date of Evaluation: 03/26/18 Time of Evaluation: 07:24 - Subjective Subjective: Patient seen and examined at bedside comfortable. Pain well controlled. Tolerated transferring with PT yesterday well, unable to ambulate due to drowsy effects of anesthesia. No acute events overnight. Objective - Vital Signs/Intake and Output Vital Signs (last 24 hours): Temp Pulse Resp BP Pulse Ox 98.4 F 70 18 147/73 95 03/26/18 03:59 03/26/18 03:59 03/26/18 03:59 03/26/18 03:59 03/26/18 03:59 Intake and Output: 03/26/18 03/26/18 06:59 18:59 Output Total 200 Balance -200 - Medications Medications: Current Medications Acetaminophen (Tylenol 325mg Tab) 975 mg PO Q8 [facility] Last Admin: 03/26/18 00:17 Dose: 975 mg Cholecalciferol (Vitamin D) 2,000 intlu PO DAILY [facility] Last Admin: 03/25/18 09:00 Dose: Not Given Enoxaparin Sodium (Lovenox) 40 mg SC DAILY [facility] PRN Reason: Protocol Famotidine (Pepcid) 20 mg PO DAILY [facility] Last Admin: 03/25/18 13:12 Dose: 20 mg Ferrous Sulfate (Feosol) 325 mg PO BID [facility] Last Admin: 03/25/18 16:24 Dose: 325 mg Hydromorphone HCl (Dilaudid) 0.5 mg IVP Q3 PRN PRN Reason: Pain, severe (8-10) Last Admin: 03/26/18 02:46 Dose: 0.5 mg Cefazolin Sodium/Dextrose (Ancef Iv 2 Gm Duplex) 2 gm in 50 mls @ 50 mls/hr IVPB Q8 [facility] PRN Reason: Protocol Stop: 03/26/18 09:59 Last Admin: 03/26/18 00:16 Dose: 50 mls/hr Lactated Ringer's (Lactated Ringer's) 1,000 mls @ 70 mls/hr IV .[id number] [facility] Last Admin: 03/25/18 17:42 Dose: 70 mls/hr Nadolol (Corgard) 20 mg PO DAILY [facility] Last Admin: 03/25/18 01:35 Dose: 20 mg Ondansetron HCl (Zofran Inj) 4 mg IVP Q4 PRN PRN Reason: Nausea/Vomiting Last Admin: 03/26/18 05:36 Dose: 4 mg Oxycodone HCl (Oxycodone Immediate Release Tab) 5 mg PO Q4 PRN PRN Reason: Pain, moderate (4-7) Last Admin: 03/26/18 05:35 Dose: 5 mg Senna/Docusate Sodium (Senokot S 50 Mg-8.6 Mg) 2 tab PO HS [facility] Last Admin: 03/25/18 22:21 Dose: 2 tab - Labs Labs: 03/25/18 10:48 03/26/18 05:25 PT 12.1 Seconds (9.8-13.1) 03/25/18 02:00 INR 1.1 (0.9-1.2) 03/25/18 02:00 APTT 27.0 Seconds (25.6-37.1) 03/25/18 02:00 - Extremities Exam Additional comments: R hip: VIDYA dressing CDI, no drainage mild swelling and tenderness 2nd to surgery sensation intact SP/DP/TN motor intact EHL/FHL/TA/G pedal pulses intact comps soft NT Assessment and Plan (1) Primary osteoarthritis of right hip Assessment & Plan: POD# 1 s/p R GAIL doing well -pain controlled -PT/OT WBAT -complete postop abx -DVT ppx -orthopedically stable -discharge planning today -above d/w Dr. Andrade in agreement Status: Acute
[2018-03-26] MEDS: Cholecalciferol 1,000 INTLU TAB PO SCH (08:09)
[2018-03-26] MEDS: Lactated Ringer's 1,000 ML IV SCH (08:16)
[2018-03-26] MEDS ORDERED: Enoxaparin 40 mg Syringe SC SCH (09:00)
--- NOTE | 2018-03-26 09:14 | CP.PCM.PN ---
Subjective - Date & Time of Evaluation Date of Evaluation: 03/26/18 Time of Evaluation: 09:00 - Subjective Subjective: NO CHEST PAIN OR SOB HAS PAIN AT SURGICAL SITE Objective - Vital Signs/Intake and Output Vital Signs (last 24 hours): Temp Pulse Resp BP Pulse Ox 98 F 65 20 128/84 98 03/26/18 08:27 03/26/18 08:27 03/26/18 08:27 03/26/18 08:27 03/26/18 08:27 Intake and Output: 03/26/18 03/26/18 06:59 18:59 Output Total 200 Balance -200 - Medications Medications: Current Medications Acetaminophen (Tylenol 325mg Tab) 975 mg PO Q8 [facility] Last Admin: 03/26/18 08:08 Dose: 975 mg Cholecalciferol (Vitamin D) 2,000 intlu PO DAILY [facility] Last Admin: 03/26/18 08:09 Dose: 2,000 intlu Enoxaparin Sodium (Lovenox) 40 mg SC DAILY [facility] PRN Reason: Protocol Last Admin: 03/26/18 08:07 Dose: 40 mg Famotidine (Pepcid) 20 mg PO DAILY [facility] Last Admin: 03/26/18 08:08 Dose: 20 mg Ferrous Sulfate (Feosol) 325 mg PO BID [facility] Last Admin: 03/26/18 08:07 Dose: 325 mg Hydromorphone HCl (Dilaudid) 0.5 mg IVP Q3 PRN PRN Reason: Pain, severe (8-10) Last Admin: 03/26/18 02:46 Dose: 0.5 mg Cefazolin Sodium/Dextrose (Ancef Iv 2 Gm Duplex) 2 gm in 50 mls @ 50 mls/hr IVPB Q8 [facility] PRN Reason: Protocol Stop: 03/26/18 09:59 Last Admin: 03/26/18 08:06 Dose: 50 mls/hr Lactated Ringer's (Lactated Ringer's) 1,000 mls @ 70 mls/hr IV .[id number] [facility] Last Admin: 03/26/18 08:16 Dose: 70 mls/hr Nadolol (Corgard) 20 mg PO DAILY [facility] Last Admin: 03/26/18 08:06 Dose: 20 mg Ondansetron HCl (Zofran Inj) 4 mg IVP Q4 PRN PRN Reason: Nausea/Vomiting Last Admin: 03/26/18 05:36 Dose: 4 mg Oxycodone HCl (Oxycodone Immediate Release Tab) 5 mg PO Q4 PRN PRN Reason: Pain, moderate (4-7) Last Admin: 03/26/18 05:35 Dose: 5 mg Senna/Docusate Sodium (Senokot S 50 Mg-8.6 Mg) 2 tab PO HS [facility] Last Admin: 03/25/18 22:21 Dose: 2 tab - Labs Labs: 03/26/18 05:25 03/26/18 05:25 PT 12.1 Seconds (9.8-13.1) 03/25/18 02:00 INR 1.1 (0.9-1.2) 03/25/18 02:00 APTT 27.0 Seconds (25.6-37.1) 03/25/18 02:00 - Respiratory Exam Respiratory Exam: Clear to Ausculation Bilateral - Cardiovascular Exam Cardiovascular Exam: REGULAR RHYTHM, +S1, +S2 - Extremities Exam Extremities Exam: Normal Inspection - Additional Findings Additional findings: OR NOTES REVIEWED H/H
--- NOTE | 2018-03-26 11:36 | CP.PCM.PN ---
Subjective - Date & Time of Evaluation Date of Evaluation: 03/26/18 Time of Evaluation: 11:15 Objective - Vital Signs/Intake and Output Vital Signs (last 24 hours): Temp Pulse Resp BP Pulse Ox 98 F 65 20 128/84 98 03/26/18 08:27 03/26/18 08:27 03/26/18 08:27 03/26/18 08:27 03/26/18 08:27 Intake and Output: 03/26/18 03/26/18 06:59 18:59 Output Total 200 Balance -200 - Medications Medications: Current Medications Acetaminophen (Tylenol 325mg Tab) 975 mg PO Q8 [facility] Last Admin: 03/26/18 08:08 Dose: 975 mg Cholecalciferol (Vitamin D) 2,000 intlu PO DAILY [facility] Last Admin: 03/26/18 08:09 Dose: 2,000 intlu Enoxaparin Sodium (Lovenox) 40 mg SC DAILY [facility] PRN Reason: Protocol Last Admin: 03/26/18 08:07 Dose: 40 mg Famotidine (Pepcid) 20 mg PO DAILY [facility] Last Admin: 03/26/18 08:08 Dose: 20 mg Ferrous Sulfate (Feosol) 325 mg PO BID [facility] Last Admin: 03/26/18 08:07 Dose: 325 mg Hydromorphone HCl (Dilaudid) 0.5 mg IVP Q3 PRN PRN Reason: Pain, severe (8-10) Last Admin: 03/26/18 11:17 Dose: 0.5 mg Lactated Ringer's (Lactated Ringer's) 1,000 mls @ 70 mls/hr IV .[id number] [facility] Last Admin: 03/26/18 08:16 Dose: 70 mls/hr Nadolol (Corgard) 20 mg PO DAILY [facility] Last Admin: 03/26/18 08:06 Dose: 20 mg Ondansetron HCl (Zofran Inj) 4 mg IVP Q4 PRN PRN Reason: Nausea/Vomiting Last Admin: 03/26/18 11:18 Dose: 4 mg Oxycodone HCl (Oxycodone Immediate Release Tab) 5 mg PO Q4 PRN PRN Reason: Pain, moderate (4-7) Last Admin: 03/26/18 05:35 Dose: 5 mg Senna/Docusate Sodium (Senokot S 50 Mg-8.6 Mg) 2 tab PO HS [facility] Last Admin: 03/25/18 22:21 Dose: 2 tab - Labs Labs: 03/26/18 05:25 03/26/18 05:25 PT 12.1 Seconds (9.8-13.1) 03/25/18 02:00 INR 1.1 (0.9-1.2) 03/25/18 02:00 APTT 27.0 Seconds (25.6-37.1) 03/25/18 02:00 Assessment and Plan (1) Primary osteoarthritis of right hip Status: Acute (2) Paroxysmal atrial fibrillation Status: Acute (3) Hypertension Status: Chronic (4) DVT prophylaxis Status: Acute
--- NOTE | 2018-03-26 12:27 | CP.PCM.DIS ---
<Rachna Flores - Last Filed: 03/26/18 16:20> Provider - Provider Date of Admission: 03/25/18 17:05 Attending physician: Reny Li MD Primary care physician: Patrick Andrade III, MD Time Spent in preparation of Discharge (in minutes): 10 Diagnosis - Discharge Diagnosis (1) Primary osteoarthritis of right hip Status: Acute Comment: s/p Total right hip replacement, Ortho: Dr. Andrade. Continue pain management in TCU. (2) Paroxysmal atrial fibrillation Status: Acute Comment: Continue Nadolol 20 mg PO daily if heart rate is >50; Hold if HR <50. (3) Hypertension Status: Chronic Comment: Continue Nadolol 20mg po daily if heart rate is >55; hold if HR <55. (4) DVT prophylaxis Status: Acute Comment: Continue Lovenox. Patient ambulating with PT. Hospital Course - Lab Results Lab Results: Most Recent Lab Values WBC 9.2 K/uL (4.8-10.8) 03/26/18 05:25 RBC 3.80 Mil/uL (3.80-5.20) 03/26/18 05:25 Hgb 11.1 g/dL (12.0-16.0) L 03/26/18 05:25 Hct 32.9 % (34.0-47.0) L 03/26/18 05:25 MCV 86.5 fl (81.0-99.0) 03/26/18 05:25 MCH 29.3 pg (27.0-31.0) 03/26/18 05:25 MCHC 33.9 g/dL (33.0-37.0) 03/26/18 05:25 RDW 13.7 % (11.5-14.5) 03/26/18 05:25 Plt Count 233 K/uL (130-400) 03/26/18 05:25 PT 12.1 Seconds (9.8-13.1) 03/25/18 02:00 INR 1.1 (0.9-1.2) 03/25/18 02:00 APTT 27.0 Seconds (25.6-37.1) 03/25/18 02:00 Sodium 139 mmol/l (132-148) 03/26/18 05:25 Potassium 3.7 MMOL/L (3.6-5.0) 03/26/18 05:25 Chloride 103 mmol/L (98-107) 03/26/18 05:25 Carbon Dioxide 29 mmol/L (22-30) 03/26/18 05:25 Anion Gap 11 (10-20) 03/26/18 05:25 BUN 11 mg/dl (7-17) 03/26/18 05:25 Creatinine 0.6 mg/dl (0.7-1.2) L 03/26/18 05:25 Est GFR ( Amer) > 60 03/26/18 05:25 Est GFR (Non-Af Amer) > 60 03/26/18 05:25 Random Glucose 111 mg/dL (65-105) H 03/26/18 05:25 Calcium 8.2 mg/dL (8.4-10.2) L 03/26/18 05:25 Total Bilirubin 0.5 mg/dl (0.2-1.3) 03/25/18 02:00 AST 31 U/L (14-36) 03/25/18 02:00 ALT 12 U/L (9-52) 03/25/18 02:00 Alkaline Phosphatase 100 U/L (38-126) 03/25/18 02:00 Total Protein 7.3 G/DL (6.3-8.2) 03/25/18 02:00 Albumin 3.8 g/dL (3.5-5.0) 03/25/18 02:00 Globulin 3.5 gm/dL (2.2-3.9) 03/25/18 02:00 Albumin/Globulin Ratio 1.1 (1.0-2.1) 03/25/18 02:00 25-OH Vitamin D Total 13.3 NG/ML (30.0-100.0) L 03/24/18 18:00 Blood Type A POSITIVE 03/24/18 07:09 Blood Type Confirm A POSITIVE 03/24/18 08:03 Antibody Screen Positive 03/24/18 07:09 Antibody Identification Anti E 03/24/18 07:09 Antigen Identification E Antigen - NEGATIVE 03/24/18 07:09 Crossmatch See Detail 03/24/18 07:09 BBK History Checked No verified bt 03/24/18 07:09 - Hospital Course Hospital Course: 72 yo AAF with history of HTN, A Fib presents s/p Right Total hip replacement. Patient has had bowel movements, soft and formed. She has been tolerating PT including, getting out of bed to chair and being able to walk to the bathroom with physical therapy. Patient is interested in going to TCU for rehabilitation. Discharge Exam - Head Exam Head Exam: NORMAL INSPECTION - Eye Exam Eye Exam: Normal appearance - ENT Exam ENT Exam: Mucous Membranes Moist, Normal Oropharynx - Respiratory Exam Respiratory Exam: NORMAL BREATHING PATTERN, UNREMARKABLE. absent: Chest Wall Tenderness, Decreased Breath Sounds, Prolonged Expiratory Phase, Rales, Rhonchi , Wheezes, Stridor - Cardiovascular Exam Cardiovascular Exam: REGULAR RHYTHM, +S1, +S2. absent: Clicks, Diastolic murmur , Gallop, Rubs, Systolic Murmur - GI/Abdominal Exam GI & Abdominal Exam: Normal Bowel Sounds, Soft, Unremarkable. absent: Diminished Bowel Sounds, Distended, Firm, Guarding, Organomegaly, Pulsatile Mass , Rebound, Rigid, Tenderness - Extremities Exam Extremities exam: normal inspection (+ right hip bandage, clean. NATASHA bandage covering right knee. ) - Back Exam Back exam: NORMAL INSPECTION - Neurological Exam Neurological exam: Alert, Oriented x3 - Psychiatric Exam Psychiatric exam: Normal Affect, Normal Mood - Skin Skin Exam: Dry, Intact, Normal Color, Warm Discharge Plan - Follow Up Plan Condition: GOOD Disposition: TRANSF TO SNF Instructions: Total Hip Replacement (DC) Additional Instructions: d/c pt to TCU Referrals: Patrick Andrade III, MD [Primary Care Provider] - <Reny Li - Last Filed: 03/26/18 17:02> Provider - Provider Date of Admission: 03/25/18 17:05 Attending physician: Reny Li MD Primary care physician: Patrick Andrade III, MD Time Spent in preparation of Discharge (in minutes): 20 Hospital Course - Lab Results Lab Results: Most Recent Lab Values WBC 9.2 K/uL (4.8-10.8) 03/26/18 05:25 RBC 3.80 Mil/uL (3.80-5.20) 03/26/18 05:25 Hgb 11.1 g/dL (12.0-16.0) L 03/26/18 05:25 Hct 32.9 % (34.0-47.0) L 03/26/18 05:25 MCV 86.5 fl (81.0-99.0) 03/26/18 05:25 MCH 29.3 pg (27.0-31.0) 03/26/18 05:25 MCHC 33.9 g/dL (33.0-37.0) 03/26/18 05:25 RDW 13.7 % (11.5-14.5) 03/26/18 05:25 Plt Count 233 K/uL (130-400) 03/26/18 05:25 PT 12.1 Seconds (9.8-13.1) 03/25/18 02:00 INR 1.1 (0.9-1.2) 03/25/18 02:00 APTT 27.0 Seconds (25.6-37.1) 03/25/18 02:00 Sodium 139 mmol/l (132-148) 03/26/18 05:25 Potassium 3.7 MMOL/L (3.6-5.0) 03/26/18 05:25 Chloride 103 mmol/L (98-107) 03/26/18 05:25 Carbon Dioxide 29 mmol/L (22-30) 03/26/18 05:25 Anion Gap 11 (10-20) 03/26/18 05:25 BUN 11 mg/dl (7-17) 03/26/18 05:25 Creatinine 0.6 mg/dl (0.7-1.2) L 03/26/18 05:25 Est GFR ( Amer) > 60 03/26/18 05:25 Est GFR (Non-Af Amer) > 60 03/26/18 05:25 Random Glucose 111 mg/dL (65-105) H 03/26/18 05:25 Calcium 8.2 mg/dL (8.4-10.2) L 03/26/18 05:25 Total Bilirubin 0.5 mg/dl (0.2-1.3) 03/25/18 02:00 AST 31 U/L (14-36) 03/25/18 02:00 ALT 12 U/L (9-52) 03/25/18 02:00 Alkaline Phosphatase 100 U/L (38-126) 03/25/18 02:00 Total Protein 7.3 G/DL (6.3-8.2) 03/25/18 02:00 Albumin 3.8 g/dL (3.5-5.0) 03/25/18 02:00 Globulin 3.5 gm/dL (2.2-3.9) 03/25/18 02:00 Albumin/Globulin Ratio 1.1 (1.0-2.1) 03/25/18 02:00 25-OH Vitamin D Total 13.3 NG/ML (30.0-100.0) L 03/24/18 18:00 Blood Type A POSITIVE 03/24/18 07:09 Blood Type Confirm A POSITIVE 03/24/18 08:03 Antibody Screen Positive 03/24/18 07:09 Antibody Identification Anti E 03/24/18 07:09 Antigen Identification E Antigen - NEGATIVE 03/24/18 07:09 Crossmatch See Detail 03/24/18 07:09 BBK History Checked No verified bt 03/24/18 07:09 Attending/Attestation - Attestation I have personally seen and examined this patient.: Yes I have fully participated in the care of the patient.: Yes I have reviewed all pertinent clinical information, including history, physical exam and plan: Yes Notes (Text): 72 yo AAF with history of HTN, A Fib presents s/p Right Total hip replacement. 1. Primary Osteoarthritis of the Right Hip s/p Right THR - total right hip replacement performed 03/25/18, Ortho: Dr. Andrade - Pain management - Antibiotics: Cefazolin 2gm - d/c to TCU for PT/OT - Pain controlled - pt doing well post op 2. Paroxysmal Atrial Fibrillation. - At present, sinus rhythm. - Patient is not currently taking Multaq 400mg for two weeks because of side effects including rash of bilateral extremities, more so on the fingers and feet. - Continue Nadolol 20 mg PO daily if heart rate is >50; Hold if HR <50. - Patient not currently on anticoagulation medications!! - Cardiac Consult appreciated. 3. Hypertension - Continue Nadolol 20mg po daily if heart rate is >55; hold if HR <55. 4. DVT prophylaxis - SCD's and lovenox.
[2018-03-26] MEDS: Sucralfate 1 gm/10 ml Oral Susp UD PO SCH ×2 (12:54→16:25)
[2018-03-26] MEDS: Sodium Chloride 0.9% 500 ML IV SCH ×2 (12:55→16:31)
[2018-03-26 16:37] VITALS: BP 151/83; PULSE 52; RESP 18; TEMP 99.3; O2SAT 97
== END 2018-03-26 18:30 | DRG 470 ==
LOC: H.OPSURG 06:24 → H.MEDSURG1 13:49 → OBSVTOIN 03-25 17:05
PROVIDERS: ADMIT Internal Medicine; ATTEND Internal Medicine
PROC: 0SN90ZZ Release Right Hip Joint, Open Approach (ICD-10-PCS; 2018-03-25)
PROC: 3E0T3BZ Introduction of Anesthetic Agent into Peripheral Nerves and Plexi, Percutaneous Approach (ICD-10-PCS; 2018-03-25)
PROC: 0SR903A Replacement of Right Hip Joint with Ceramic Synthetic Substitute, Uncemented, Open Approach (ICD-10-PCS; principal; 2018-03-25 06:30)
PROC: 0SB90ZZ Excision of Right Hip Joint, Open Approach (ICD-10-PCS; 2018-03-25 06:30)
DX: M16.11 Unilateral primary osteoarthritis, right hip (principal); I48.0 Paroxysmal atrial fibrillation; M65.9 Synovitis and tenosynovitis, unspecified; M24.551 Contracture, right hip; I10 Essential (primary) hypertension; Z96.651 Presence of right artificial knee joint; Z91.018 Allergy to other foods; R11.2 Nausea with vomiting, unspecified

== ENCOUNTER 2018-03-26 17:24 | Inpatient (IN) | payer MEDICARE ==
[2018-03-26 18:50] VITALS: BMI 32.4
[2018-03-26] MEDS ORDERED: Oxycodone/Acetaminophen 5/325 mg Tab PO PRN (19:27)
[2018-03-26] MEDS: Docusate-Senna 50 mg-8.6 mg Tab PO SCH (21:35)
[2018-03-26] MEDS ORDERED: Oxycodone/Acetaminophen 5/325 mg Tab PO STA ×2 (23:11→23:21)
[2018-03-27] MEDS: Oxycodone/Acetaminophen 5/325 mg Tab PO PRN ×5 (04:34→22:56)
[2018-03-27] MEDS: Sucralfate 1 gm/10 ml Oral Susp UD PO SCH ×3 (06:39→16:13)
--- NOTE | 2018-03-27 08:15 | CP.PCM.PN ---
Subjective - Date & Time of Evaluation Date of Evaluation: 03/27/18 Time of Evaluation: 07:30 - Subjective Subjective: Patient seen and examined at bedside comfortable. Pain better controlled. Nausea improved. Tolerated ambulating with PT yesterday. No other complaints. Objective - Vital Signs/Intake and Output Vital Signs (last 24 hours): Temp Pulse Resp BP Pulse Ox 71 20 99 03/26/18 19:19 03/26/18 19:19 03/26/18 19:19 - Medications Medications: Current Medications Acetaminophen (Tylenol 325mg Tab) 975 mg PO Q8 [facility] Last Admin: 03/27/18 01:42 Dose: Not Given Cholecalciferol (Vitamin D) 2,000 intlu PO DAILY [facility] Enoxaparin Sodium (Lovenox) 40 mg SC DAILY [facility] PRN Reason: Protocol Famotidine (Pepcid) 20 mg PO DAILY [facility] Ferrous Sulfate (Feosol) 325 mg PO TID [facility] Nadolol (Corgard) 20 mg PO DAILY [facility] Oxycodone/Acetaminophen (Percocet 5/325 Mg Tab) 2 tab PO Q4 PRN PRN Reason: Pain, severe (8-10) Stop: 03/29/18 23:13 Last Admin: 03/27/18 04:34 Dose: 2 tab Oxycodone/Acetaminophen (Percocet 5/325 Mg Tab) 1 tab PO Q4 PRN PRN Reason: Pain, moderate (4-7) Stop: 03/29/18 23:26 Senna/Docusate Sodium (Senokot S 50 Mg-8.6 Mg) 2 tab PO HS [facility] Last Admin: 03/26/18 21:35 Dose: 2 tab Sucralfate (Carafate Oral Susp) 1 gm PO TIDAC [facility] Last Admin: 03/27/18 06:39 Dose: 1 gm - Extremities Exam Additional comments: R hip: VIDYA dressing intact with minimal dry blood proximally, VIDYA removed revealing wound intact with aura, no drainage, no erythema moderate swelling/tenderness secondary to surgery sensation intact SP/DP/TN motor intact EHL/FHL/TA/G pedal pulses intact comps soft NT Assessment and Plan (1) Primary osteoarthritis of right hip Assessment & Plan: POD #2 s/p R GAIL doing well -VIDYA dressing changed this AM -PT/OT WBAT -frequent icing of R hip -DVT ppx -orthopedically stable -above d/w Dr. Andrade in agreement Status: Acute
--- NOTE | 2018-03-27 08:21 | RAD ---
Date of service: 03/26/2018 HISTORY: new pt COMPARISON: None available. FINDINGS: LUNGS: No active pulmonary disease. PLEURA: No significant pleural effusion identified, no pneumothorax apparent. CARDIOVASCULAR: Cardiomediastinal silhouette appears stable. No pulmonary vascular congestion. Cardiac silhouette appears prominent, possibly on the basis of magnification by portable technique. Clinically correlate. OSSEOUS STRUCTURES: No significant abnormalities. VISUALIZED UPPER ABDOMEN: Normal. OTHER FINDINGS: None. IMPRESSION: No definite acute cardiopulmonary disease appreciated. Mild cardiomegaly not completely excluded.
[2018-03-27] MEDS: Cholecalciferol 1,000 INTLU TAB PO SCH (08:49)
[2018-03-27] MEDS: Enoxaparin 40 mg Syringe SC SCH (08:49)
--- NOTE | 2018-03-27 11:08 | CP.PCM.CON ---
History of Present Illness - History of Present Illness History of Present Illness: THE PATIENT IS A 72 YEAR OLD FEMALE WHO HAD A TOTAL RHR FOR SEVERE OA 2 DAYS AGO AND IS NOW ADMITTED TO TCU FOR SUBACUTE REHAB AND I WAS ASKED TO FOLLOW HER , HE HAS A HISTORY OF HYPERTENSION AND HAD ATRIAL FIBRILLATION IN THE PAST. SHE ALSO HAD A RIGHT TKR, LEFT SHOULDER ROTATOR CUFF SURGERY AND A RIGHT CARPEL TUNNEL SURGERY. SHE DENIES CHEST PAIN, PALPITATIONS OR SOB. Past Patient History - Past Medical History & Family History Past Medical History?: Yes - Past Social History Smoking Status: Never Smoked - CARDIAC Hx Cardiac Disorders: Yes Hx Hypertension: Yes - PULMONARY Hx Respiratory Disorders: No Hx Asthma: No Hx Bronchitis: No Hx Chronic Obstructive Pulmonary Disease (COPD): No Hx Emphysema: No Hx Lung Cancer: No Hx Pneumonia: No Hx Pulmonary Edema: No Hx Pulmonary Embolism: No Hx Respiratory Aspiration: No Hx Respiratory Tract Infection: No Hx Sleep Apnea: No Hx Tuberculosis: No - HEENT Hx Cataracts: Yes - HEMATOLOGICAL/ONCOLOGICAL Hx Blood Transfusions: Yes Hx Blood Transfusion Reaction: No - MUSCULOSKELETAL/RHEUMATOLOGICAL Hx Falls: No Hx Herniated Disk: Yes Hx Osteoarthritis: Yes - PSYCHIATRIC Hx Substance Use: No - SURGICAL HISTORY Hx Cataract Extraction: Yes Hx Cholecystectomy: Yes Hx Joint Replacement: Yes (R TKR) Hx Orthopedic Surgery: Yes (L rotator cuff) Hx Vascular Access Device: Yes (laminectomy 1992 1997) - ANESTHESIA Hx Anesthesia: Yes Hx Anesthesia Reactions: No Meds Allergies/Adverse Reactions: Allergies Allergy/AdvReac Type Severity Reaction Status Date / Time vit C Allergy RASH Uncoded 03/24/18 06:46 - Medications Medications: Current Medications Acetaminophen (Tylenol 325mg Tab) 650 mg PO Q6 PRN PRN Reason: Pain, Mild (1-3) Cholecalciferol (Vitamin D) 2,000 intlu PO DAILY [facility] Last Admin: 03/27/18 08:49 Dose: 2,000 intlu Enoxaparin Sodium (Lovenox) 40 mg SC DAILY [facility] PRN Reason: Protocol Last Admin: 03/27/18 08:49 Dose: 40 mg Famotidine (Pepcid) 20 mg PO DAILY [facility] Last Admin: 03/27/18 08:49 Dose: 20 mg Ferrous Sulfate (Feosol) 325 mg PO TID [facility] Last Admin: 03/27/18 08:48 Dose: 325 mg Nadolol (Corgard) 20 mg PO DAILY [facility] Last Admin: 03/27/18 08:47 Dose: 20 mg Oxycodone/Acetaminophen (Percocet 5/325 Mg Tab) 2 tab PO Q4 PRN PRN Reason: Pain, severe (8-10) Stop: 03/29/18 23:13 Last Admin: 03/27/18 08:44 Dose: 2 tab Oxycodone/Acetaminophen (Percocet 5/325 Mg Tab) 1 tab PO Q4 PRN PRN Reason: Pain, moderate (4-7) Stop: 03/29/18 23:26 Senna/Docusate Sodium (Senokot S 50 Mg-8.6 Mg) 2 tab PO HS [facility] Last Admin: 03/26/18 21:35 Dose: 2 tab Sucralfate (Carafate Oral Susp) 1 gm PO TIDAC [facility] Last Admin: 03/27/18 06:39 Dose: 1 gm Physical Exam - Respiratory Exam Respiratory Exam: Clear to Auscultation Bilateral - Cardiovascular Exam Cardiovascular Exam: REGULAR RHYTHM, +S1, +S2 Results - Vital Signs Recent Vital Signs: Last Vital Signs Temp 98.1 F 03/27/18 08:39 Pulse 73 03/27/18 08:47 Resp 20 03/27/18 08:39 BP 126/54 L 03/27/18 08:47 Pulse Ox 96 03/27/18 08:39 Assessment & Plan - Assessment and Plan (Free Text) Assessment: RIGHT THR FOR SEVERE OA HYPERTENSION HISTORY OF ATRIAL FIBRILLATION IN THE PAST Plan: CONTINUE CORGARD, LOVENOX AND PAIN MEDICINES SUBACUTE REHAB
--- NOTE | 2018-03-27 14:14 | CP.PCM.HP ---
History of Present Illness - History of Present Illness History of Present Illness: 72 yo female with history of HTN and AFib had right THR on 03/25/18 after failing conservative management of chronic pain on the right hip. She was transferred to TCU for PT/OT a day later. Present on Admission - Present on Admission Any Indicators Present on Admission: No History of DVT/PE: No History of Uncontrolled Diabetes: No Urinary Catheter: No Decubitus Ulcer Present: No Review of Systems - Review of Systems All systems: reviewed and no additional remarkable complaints except (aside from those mentioned above, 12 point system review were negative by me) Past Patient History - Past Medical History & Family History Past Medical History?: Yes - Past Social History Smoking Status: Never Smoked Chewing Tobacco Use: No Cigar Use: No Alcohol: None Drugs: Denies Home Situation {Lives}: With Family - CARDIAC Hx Cardiac Disorders: Yes Hx Hypertension: Yes - PULMONARY Hx Respiratory Disorders: No Hx Asthma: No Hx Bronchitis: No Hx Chronic Obstructive Pulmonary Disease (COPD): No Hx Emphysema: No Hx Lung Cancer: No Hx Pneumonia: No Hx Pulmonary Edema: No Hx Pulmonary Embolism: No Hx Respiratory Aspiration: No Hx Respiratory Tract Infection: No Hx Sleep Apnea: No Hx Tuberculosis: No - HEENT Hx Cataracts: Yes - HEMATOLOGICAL/ONCOLOGICAL Hx Blood Transfusions: Yes Hx Blood Transfusion Reaction: No - MUSCULOSKELETAL/RHEUMATOLOGICAL Hx Falls: No Hx Herniated Disk: Yes Hx Osteoarthritis: Yes - PSYCHIATRIC Hx Substance Use: No - SURGICAL HISTORY Hx Cataract Extraction: Yes Hx Cholecystectomy: Yes Hx Joint Replacement: Yes (R TKR) Hx Orthopedic Surgery: Yes (L rotator cuff) Hx Vascular Access Device: Yes (laminectomy 1992 1997) - ANESTHESIA Hx Anesthesia: Yes Hx Anesthesia Reactions: No Meds Allergies/Adverse Reactions: Allergies Allergy/AdvReac Type Severity Reaction Status Date / Time vit C Allergy RASH Uncoded 03/24/18 06:46 Physical Exam - Constitutional Appears: No Acute Distress - Head Exam Head Exam: ATRAUMATIC - Eye Exam Eye Exam: absent: Scleral icterus - ENT Exam ENT Exam: Mucous Membranes Moist - Neck Exam Neck exam: Negative for: Meningismus - Respiratory Exam Respiratory Exam: absent: Rales, Rhonchi, Wheezes, Respiratory Distress - Cardiovascular Exam Cardiovascular Exam: REGULAR RHYTHM, +S1, +S2 - GI/Abdominal Exam GI & Abdominal Exam: Soft. absent: Tenderness - Rectal Exam Rectal Exam: Deferred - Extremities Exam Extremities exam: Negative for: full ROM (limited of movement on right hip) - Back Exam Back exam: NORMAL INSPECTION - Neurological Exam Neurological exam: Alert, Oriented x3 - Psychiatric Exam Psychiatric exam: Normal Affect - Skin Skin Exam: Dry, Intact Results - Vital Signs Recent Vital Signs: Last Vital Signs Temp 98.1 F 03/27/18 08:39 Pulse 73 03/27/18 08:47 Resp 20 03/27/18 08:39 BP 126/54 L 03/27/18 08:47 Pulse Ox 96 03/27/18 08:39 Assessment & Plan - Assessment and Plan (Free Text) Assessment: 72 yo female with history of HTN and AFib had right THR on 03/25/18 after failing conservative management of chronic pain on the right hip. 1. Post Right THR POD # 2 continue PT/OT continue Percocet for pain management 2. Paroxysmal A Fib rate controlled presently in sinus rhythm continue Nadolol 20mg PO daily 3. Hypertension BP controlled on Nadolol 4. DVT prophylaxis Lovenox 40mg SC daily
--- NOTE | 2018-03-27 18:09 | CP.PCM.CON ---
History of Present Illness - History of Present Illness History of Present Illness: Dr Pulido PMR consultation on Steph Sullivan, born 1945 who has been admitted to [facility] TCU for CECELIA following an elective right THR by Dr Andrade She has undergone a right TKR, shoulder surgery and three back surgeries in the past. She is doing ok today and ambulated in therapy. She has had a bowel movement Review of Systems - Constitutional Constitutional: absent: Chills - EENT Eyes: absent: Change in Vision Nose/Mouth/Throat: absent: Epistaxis, Nasal Congestion, Nasal Discharge - Cardiovascular Cardiovascular: absent: Chest Pain - Respiratory Respiratory: absent: Dyspnea - Gastrointestinal Gastrointestinal: absent: Abdominal Pain - Integumentary Integumentary: absent: Bleeding Lesions - Neurological Neurological: absent: Abnormal Movements, Paresthesias Past Patient History - Past Medical History & Family History Past Medical History?: Yes - Past Social History Smoking Status: Never Smoked Chewing Tobacco Use: No Cigar Use: No Alcohol: None Drugs: Denies Home Situation {Lives}: Alone - CARDIAC Hx Cardiac Disorders: Yes Hx Hypertension: Yes - PULMONARY Hx Respiratory Disorders: No Hx Asthma: No Hx Bronchitis: No Hx Chronic Obstructive Pulmonary Disease (COPD): No Hx Emphysema: No Hx Lung Cancer: No Hx Pneumonia: No Hx Pulmonary Edema: No Hx Pulmonary Embolism: No Hx Respiratory Aspiration: No Hx Respiratory Tract Infection: No Hx Sleep Apnea: No Hx Tuberculosis: No - HEENT Hx Cataracts: Yes - HEMATOLOGICAL/ONCOLOGICAL Hx Blood Transfusions: Yes Hx Blood Transfusion Reaction: No - MUSCULOSKELETAL/RHEUMATOLOGICAL Hx Falls: No Hx Herniated Disk: Yes Hx Osteoarthritis: Yes - PSYCHIATRIC Hx Substance Use: No - SURGICAL HISTORY Hx Cataract Extraction: Yes Hx Cholecystectomy: Yes Hx Joint Replacement: Yes (R TKR) Hx Orthopedic Surgery: Yes (L rotator cuff) Hx Vascular Access Device: Yes (laminectomy 1992 1997) - ANESTHESIA Hx Anesthesia: Yes Hx Anesthesia Reactions: No Meds Allergies/Adverse Reactions: Allergies Allergy/AdvReac Type Severity Reaction Status Date / Time vit C Allergy RASH Uncoded 03/24/18 06:46 - Medications Medications: Current Medications Acetaminophen (Tylenol 325mg Tab) 650 mg PO Q6 PRN PRN Reason: Pain, Mild (1-3) Cholecalciferol (Vitamin D) 2,000 intlu PO DAILY [facility] Last Admin: 03/27/18 08:49 Dose: 2,000 intlu Enoxaparin Sodium (Lovenox) 40 mg SC DAILY [facility] PRN Reason: Protocol Last Admin: 03/27/18 08:49 Dose: 40 mg Famotidine (Pepcid) 20 mg PO DAILY [facility] Last Admin: 03/27/18 08:49 Dose: 20 mg Ferrous Sulfate (Feosol) 325 mg PO TID [facility] Last Admin: 03/27/18 17:23 Dose: 325 mg Nadolol (Corgard) 20 mg PO DAILY [facility] Last Admin: 03/27/18 08:47 Dose: 20 mg Oxycodone/Acetaminophen (Percocet 5/325 Mg Tab) 2 tab PO Q4 PRN PRN Reason: Pain, severe (8-10) Stop: 03/29/18 23:13 Last Admin: 03/27/18 17:23 Dose: 2 tab Oxycodone/Acetaminophen (Percocet 5/325 Mg Tab) 1 tab PO Q4 PRN PRN Reason: Pain, moderate (4-7) Stop: 03/29/18 23:26 Senna/Docusate Sodium (Senokot S 50 Mg-8.6 Mg) 2 tab PO HS [facility] Last Admin: 03/26/18 21:35 Dose: 2 tab Sucralfate (Carafate Oral Susp) 1 gm PO TIDAC [facility] Last Admin: 03/27/18 16:13 Dose: 1 gm Physical Exam - Constitutional Appears: Non-toxic, No Acute Distress - Head Exam Head Exam: ATRAUMATIC, NORMAL INSPECTION, NORMOCEPHALIC - Eye Exam Eye Exam: EOMI - ENT Exam ENT Exam: Mucous Membranes Moist - Respiratory Exam Respiratory Exam: NORMAL BREATHING PATTERN - Cardiovascular Exam Cardiovascular Exam: REGULAR RHYTHM - GI/Abdominal Exam GI & Abdominal Exam: Normal Bowel Sounds. absent: Distended - Extremities Exam Extremities exam: Negative for: calf tenderness - Neurological Exam Neurological exam: Alert, CN II-XII Intact, Oriented x3 - Psychiatric Exam Psychiatric exam: Normal Affect, Normal Mood Results - Vital Signs Recent Vital Signs: Last Vital Signs Temp 98.8 F 03/27/18 16:50 Pulse 79 03/27/18 16:50 Resp 20 03/27/18 16:50 BP 115/56 L 03/27/18 16:50 Pulse Ox 96 03/27/18 16:50 Assessment & Plan - Assessment and Plan (Free Text) Assessment: 72 year old female s/p right THR, post op doing well happy with pain meds no neuro complaints no constipation continue current care
[2018-03-27] MEDS: Docusate-Senna 50 mg-8.6 mg Tab PO SCH (21:10)
[2018-03-28] MEDS: Oxycodone/Acetaminophen 5/325 mg Tab PO PRN ×5 (02:42→21:31)
[2018-03-28] MEDS: Sucralfate 1 gm/10 ml Oral Susp UD PO SCH ×3 (06:48→17:23)
[2018-03-28] MEDS: Cholecalciferol 1,000 INTLU TAB PO SCH (08:40)
[2018-03-28] MEDS: Enoxaparin 40 mg Syringe SC SCH (08:50)
[2018-03-28] MEDS: Docusate-Senna 50 mg-8.6 mg Tab PO SCH (21:31)
[2018-03-29] MEDS: Oxycodone/Acetaminophen 5/325 mg Tab PO PRN ×4 (02:55→17:12)
[2018-03-29] MEDS: Sucralfate 1 gm/10 ml Oral Susp UD PO SCH ×3 (08:12→17:12)
[2018-03-29] MEDS: Enoxaparin 40 mg Syringe SC SCH (09:13)
[2018-03-29] MEDS: Cholecalciferol 1,000 INTLU TAB PO SCH (09:13)
--- NOTE | 2018-03-29 11:22 | CP.PCM.PN ---
Subjective - Date & Time of Evaluation Date of Evaluation: 03/29/18 Time of Evaluation: 10:15 - Subjective Subjective: S- pt withEXCELLENT progress/ minimal pain-pt OOB and walking at time of encounter Objective - Vital Signs/Intake and Output Vital Signs (last 24 hours): Temp Pulse Resp BP Pulse Ox 98.2 F 60 20 100/51 L 99 03/29/18 07:56 03/29/18 09:13 03/29/18 07:56 03/29/18 09:13 03/29/18 07:56 - Medications Medications: Current Medications Acetaminophen (Tylenol 325mg Tab) 650 mg PO Q6 PRN PRN Reason: Pain, Mild (1-3) Cholecalciferol (Vitamin D) 2,000 intlu PO DAILY [facility] Last Admin: 03/29/18 09:13 Dose: 2,000 intlu Enoxaparin Sodium (Lovenox) 40 mg SC DAILY [facility] PRN Reason: Protocol Last Admin: 03/29/18 09:13 Dose: 40 mg Famotidine (Pepcid) 20 mg PO DAILY@2100 [facility] Last Admin: 03/28/18 21:31 Dose: 20 mg Ferrous Sulfate (Feosol) 325 mg PO TID [facility] Last Admin: 03/29/18 09:13 Dose: 325 mg Nadolol (Corgard) 20 mg PO DAILY [facility] Last Admin: 03/29/18 09:13 Dose: 20 mg Ondansetron HCl (Zofran Odt) 4 mg PO Q8H PRN PRN Reason: Nausea/Vomiting Last Admin: 03/27/18 20:41 Dose: 4 mg Oxycodone/Acetaminophen (Percocet 5/325 Mg Tab) 2 tab PO Q4 PRN PRN Reason: Pain, severe (8-10) Stop: 03/29/18 23:13 Last Admin: 03/29/18 02:55 Dose: 2 tab Oxycodone/Acetaminophen (Percocet 5/325 Mg Tab) 1 tab PO Q4 PRN PRN Reason: Pain, moderate (4-7) Stop: 03/29/18 23:26 Last Admin: 03/29/18 09:18 Dose: 1 tab Senna/Docusate Sodium (Senokot S 50 Mg-8.6 Mg) 2 tab PO HS [facility] Last Admin: 03/28/18 21:31 Dose: 2 tab Sucralfate (Carafate Oral Susp) 1 gm PO TIDAC [facility] Last Admin: 03/29/18 08:12 Dose: 1 gm - Skin Additional comments: Objective systemic-wnl Musculoskekltal pt OOB and ambulating with walker at time of eval; MINIMAL post op diascomfort R hip wojund drssing dry and intact ] orthopedically stable- no sepsis/no evidence for thromboembolic disease Assessment and Plan - Assessment and Plan (Free Text) Assessment: A- s/p R THR anterior approach P- full weight bearing orthopedically stable
[2018-03-29] MEDS: Docusate-Senna 50 mg-8.6 mg Tab PO SCH (21:15)
[2018-03-30] MEDS: Oxycodone/Acetaminophen 5/325 mg Tab PO PRN ×4 (00:17→21:08)
[2018-03-30] MEDS: Sucralfate 1 gm/10 ml Oral Susp UD PO SCH ×3 (07:34→16:18)
[2018-03-30] MEDS: Cholecalciferol 1,000 INTLU TAB PO SCH (09:04)
[2018-03-30] MEDS: Enoxaparin 40 mg Syringe SC SCH (09:05)
[2018-03-30] MEDS: Docusate-Senna 50 mg-8.6 mg Tab PO SCH (21:05)
[2018-03-31] MEDS: Oxycodone/Acetaminophen 5/325 mg Tab PO PRN ×4 (02:53→21:53)
--- NOTE | 2018-03-31 07:13 | CP.PCM.PN ---
Subjective - Date & Time of Evaluation Date of Evaluation: 03/31/18 Time of Evaluation: 07:12 - Subjective Subjective: Patient seen and examined at bedside comfortable. Pain is minimal, well controlled with oral meds. Tolerating PT well. No new complaints. Objective - Vital Signs/Intake and Output Vital Signs (last 24 hours): Temp Pulse Resp BP Pulse Ox 99.0 F 80 20 132/64 100 03/30/18 19:55 03/30/18 19:55 03/30/18 19:55 03/30/18 19:55 03/30/18 19:55 - Medications Medications: Current Medications Acetaminophen (Tylenol 325mg Tab) 650 mg PO Q6 PRN PRN Reason: Pain, Mild (1-3) Cholecalciferol (Vitamin D) 2,000 intlu PO DAILY [facility] Last Admin: 03/30/18 09:04 Dose: 2,000 intlu Enoxaparin Sodium (Lovenox) 40 mg SC DAILY [facility] PRN Reason: Protocol Last Admin: 03/30/18 09:05 Dose: 40 mg Famotidine (Pepcid) 20 mg PO DAILY@2100 [facility] Last Admin: 03/30/18 21:05 Dose: 20 mg Ferrous Sulfate (Feosol) 325 mg PO TID [facility] Last Admin: 03/30/18 16:16 Dose: 325 mg Nadolol (Corgard) 20 mg PO DAILY [facility] Last Admin: 03/30/18 09:04 Dose: 20 mg Ondansetron HCl (Zofran Odt) 4 mg PO Q8H PRN PRN Reason: Nausea/Vomiting Last Admin: 03/27/18 20:41 Dose: 4 mg Oxycodone/Acetaminophen (Percocet 5/325 Mg Tab) 1 tab PO Q6 PRN PRN Reason: Pain, moderate (4-7) Stop: 04/02/18 00:09 Last Admin: 03/30/18 09:03 Dose: 1 tab Oxycodone/Acetaminophen (Percocet 5/325 Mg Tab) 2 tab PO Q6 PRN PRN Reason: Pain, severe (8-10) Stop: 04/02/18 00:09 Last Admin: 03/31/18 02:53 Dose: 2 tab Senna/Docusate Sodium (Senokot S 50 Mg-8.6 Mg) 2 tab PO HS [facility] Last Admin: 03/30/18 21:05 Dose: 2 tab Sucralfate (Carafate Tab) 1 gm PO TIDAC [facility] - Extremities Exam Additional comments: R hip: VIDYA dressing intact with minimal dry serous drainage proximally, VIDYA removed revealing wound intact with aura, no drainage, no erythema swelling much improved sensation intact SP/DP/TN motor intact EHL/FHL/TA/G pedal pulses intact comps soft NT Assessment and Plan (1) Primary osteoarthritis of right hip Assessment & Plan: POD #6 s/p R GAIL doing well -Maintain VIDYA dressing -PT/OT WBAT -frequent icing of R hip -DVT ppx -orthopedically stable -above d/w Dr. Andrade in agreement Status: Acute
--- NOTE | 2018-03-31 08:47 | CP.PCM.PN ---
Subjective - Date & Time of Evaluation Date of Evaluation: 03/31/18 Time of Evaluation: 08:00 - Subjective Subjective: NO COMPLAINT OF CHEST PAIN OR SOB ONLY MILD PAIN AT RIGHT HIP SURGICAL SITE DOING WELL AT REHAB Objective - Vital Signs/Intake and Output Vital Signs (last 24 hours): Temp Pulse Resp BP Pulse Ox 97.9 F 88 20 99/62 L 100 03/31/18 07:41 03/31/18 07:41 03/31/18 07:41 03/31/18 07:41 03/31/18 07:41 - Medications Medications: Current Medications Acetaminophen (Tylenol 325mg Tab) 650 mg PO Q6 PRN PRN Reason: Pain, Mild (1-3) Cholecalciferol (Vitamin D) 2,000 intlu PO DAILY [facility] Last Admin: 03/30/18 09:04 Dose: 2,000 intlu Enoxaparin Sodium (Lovenox) 40 mg SC DAILY [facility] PRN Reason: Protocol Last Admin: 03/30/18 09:05 Dose: 40 mg Famotidine (Pepcid) 20 mg PO DAILY@2100 [facility] Last Admin: 03/30/18 21:05 Dose: 20 mg Ferrous Sulfate (Feosol) 325 mg PO TID [facility] Last Admin: 03/30/18 16:16 Dose: 325 mg Nadolol (Corgard) 20 mg PO DAILY [facility] Last Admin: 03/30/18 09:04 Dose: 20 mg Ondansetron HCl (Zofran Odt) 4 mg PO Q8H PRN PRN Reason: Nausea/Vomiting Last Admin: 03/27/18 20:41 Dose: 4 mg Oxycodone/Acetaminophen (Percocet 5/325 Mg Tab) 1 tab PO Q6 PRN PRN Reason: Pain, moderate (4-7) Stop: 04/02/18 00:09 Last Admin: 03/30/18 09:03 Dose: 1 tab Oxycodone/Acetaminophen (Percocet 5/325 Mg Tab) 2 tab PO Q6 PRN PRN Reason: Pain, severe (8-10) Stop: 04/02/18 00:09 Last Admin: 03/31/18 02:53 Dose: 2 tab Senna/Docusate Sodium (Senokot S 50 Mg-8.6 Mg) 2 tab PO HS [facility] Last Admin: 03/30/18 21:05 Dose: 2 tab Sucralfate (Carafate Tab) 1 gm PO TIDAC [facility] Last Admin: 03/31/18 07:14 Dose: 1 gm - Respiratory Exam Respiratory Exam: Clear to Ausculation Bilateral - Cardiovascular Exam Cardiovascular Exam: REGULAR RHYTHM, +S1, +S2 Assessment and Plan - Assessment and Plan (Free Text) Assessment: S/P RIGHT HIP SURGERY HYPERTENSION Plan: CONTINUE CORGARD AND LOVENOX CONTINUE PHYSICAL THERAPY
[2018-03-31] MEDS: Enoxaparin 40 mg Syringe SC SCH (08:48)
[2018-03-31] MEDS: Cholecalciferol 1,000 INTLU TAB PO SCH (08:49)
[2018-03-31] MEDS: Docusate-Senna 50 mg-8.6 mg Tab PO SCH (21:13)
[2018-04-01] MEDS: Oxycodone/Acetaminophen 5/325 mg Tab PO PRN ×4 (03:44→21:15)
[2018-04-01] MEDS: Cholecalciferol 1,000 INTLU TAB PO SCH (08:29)
[2018-04-01] MEDS: Enoxaparin 40 mg Syringe SC SCH (08:31)
--- NOTE | 2018-04-01 09:56 | CP.PCM.PN ---
Subjective - Date & Time of Evaluation Date of Evaluation: 04/01/18 Time of Evaluation: 09:55 - Subjective Subjective: Patient seen and examined at bedside. C/o soreness to knee and hip secondary to PT session. Pain controlled otherwise. No new events. Objective - Vital Signs/Intake and Output Vital Signs (last 24 hours): Temp Pulse Resp BP Pulse Ox 97.7 F 80 20 128/76 100 04/01/18 08:01 04/01/18 08:28 04/01/18 08:01 04/01/18 08:28 04/01/18 08:01 - Medications Medications: Current Medications Acetaminophen (Tylenol 325mg Tab) 650 mg PO Q6 PRN PRN Reason: Pain, Mild (1-3) Cholecalciferol (Vitamin D) 2,000 intlu PO DAILY [facility] Last Admin: 04/01/18 08:29 Dose: 2,000 intlu Enoxaparin Sodium (Lovenox) 40 mg SC DAILY [facility] PRN Reason: Protocol Last Admin: 04/01/18 08:31 Dose: 40 mg Famotidine (Pepcid) 20 mg PO DAILY@2100 [facility] Last Admin: 03/31/18 21:13 Dose: 20 mg Ferrous Sulfate (Feosol) 325 mg PO TID [facility] Last Admin: 04/01/18 08:28 Dose: 325 mg Nadolol (Corgard) 20 mg PO DAILY [facility] Last Admin: 04/01/18 08:28 Dose: 20 mg Ondansetron HCl (Zofran Odt) 4 mg PO Q8H PRN PRN Reason: Nausea/Vomiting Last Admin: 03/31/18 15:24 Dose: 4 mg Oxycodone/Acetaminophen (Percocet 5/325 Mg Tab) 1 tab PO Q6 PRN PRN Reason: Pain, moderate (4-7) Stop: 04/02/18 00:09 Last Admin: 03/31/18 21:53 Dose: 1 tab Oxycodone/Acetaminophen (Percocet 5/325 Mg Tab) 2 tab PO Q6 PRN PRN Reason: Pain, severe (8-10) Stop: 04/02/18 00:09 Last Admin: 04/01/18 03:44 Dose: 2 tab Senna/Docusate Sodium (Senokot S 50 Mg-8.6 Mg) 2 tab PO HS [facility] Last Admin: 03/31/18 21:13 Dose: 2 tab Sucralfate (Carafate Tab) 1 gm PO TIDAC [facility] Last Admin: 04/01/18 08:30 Dose: Not Given - Extremities Exam Additional comments: R hip: VIDYA dressing intact no drainage no erythema swelling continues to improve sensation intact SP/DP/TN motor intact EHL/FHL/TA/G pedal pulses intact comps soft NT Assessment and Plan (1) Primary osteoarthritis of right hip Assessment & Plan: POD #7 s/p R GAIL doing well -Maintain VIDYA dressing -PT/OT WBAT -frequent icing of R hip -DVT ppx -orthopedically stable -above d/w Dr. Andrade in agreement Status: Acute
[2018-04-01] MEDS: Nystatin 100,000 Units/ml Oral Susp 5 ml UD PO SCH ×2 (12:38→17:53)
[2018-04-01] MEDS ORDERED: Nystatin 100,000 Units/ml Oral Susp 5 ml UD PO SCH (13:00)
--- NOTE | 2018-04-01 19:43 | CP.PCM.PN ---
Subjective - Date & Time of Evaluation Date of Evaluation: 04/01/18 Time of Evaluation: 11:45 - Subjective Subjective: Patient seen and examined. Complained of pain on tongue and buccal mucosa. Objective - Vital Signs/Intake and Output Vital Signs (last 24 hours): Temp Pulse Resp BP Pulse Ox 99.5 F 62 20 112/65 98 04/01/18 15:41 04/01/18 15:41 04/01/18 15:41 04/01/18 15:41 04/01/18 15:41 - Medications Medications: Current Medications Acetaminophen (Tylenol 325mg Tab) 650 mg PO Q6 PRN PRN Reason: Pain, Mild (1-3) Cholecalciferol (Vitamin D) 2,000 intlu PO DAILY [facility] Last Admin: 04/01/18 08:29 Dose: 2,000 intlu Enoxaparin Sodium (Lovenox) 40 mg SC DAILY [facility] PRN Reason: Protocol Last Admin: 04/01/18 08:31 Dose: 40 mg Famotidine (Pepcid) 20 mg PO DAILY@2100 [facility] Last Admin: 03/31/18 21:13 Dose: 20 mg Ferrous Sulfate (Feosol) 325 mg PO TID [facility] Last Admin: 04/01/18 17:52 Dose: 325 mg Nadolol (Corgard) 20 mg PO DAILY [facility] Last Admin: 04/01/18 08:28 Dose: 20 mg Nystatin (Nystatin Oral Susp) 5 ml PO TID [facility] Last Admin: 04/01/18 17:53 Dose: 5 ml Ondansetron HCl (Zofran Odt) 4 mg PO Q8H PRN PRN Reason: Nausea/Vomiting Last Admin: 03/31/18 15:24 Dose: 4 mg Oxycodone/Acetaminophen (Percocet 5/325 Mg Tab) 1 tab PO Q4 PRN PRN Reason: Pain, moderate (4-7) Stop: 04/04/18 13:01 Oxycodone/Acetaminophen (Percocet 5/325 Mg Tab) 2 tab PO Q4 PRN PRN Reason: Pain, severe (8-10) Stop: 04/04/18 17:01 Last Admin: 04/01/18 15:45 Dose: 2 tab Senna/Docusate Sodium (Senokot S 50 Mg-8.6 Mg) 2 tab PO [facility] Last Admin: 03/31/18 21:13 Dose: 2 tab Sucralfate (Carafate Tab) 1 gm PO TID@0630,1130,1630 [facility] Last Admin: 04/01/18 17:06 Dose: 1 gm - Constitutional Appears: No Acute Distress - Head Exam Head Exam: ATRAUMATIC - Eye Exam Eye Exam: absent: Scleral icterus - ENT Exam ENT Exam: Mucous Membranes Moist (white patches on buccal mucosa) - Neck Exam Neck Exam: absent: Lymphadenopathy, Meningismus - Respiratory Exam Respiratory Exam: absent: Rales, Rhonchi, Wheezes, Respiratory Distress - Cardiovascular Exam Cardiovascular Exam: REGULAR RHYTHM, +S1, +S2 - GI/Abdominal Exam GI & Abdominal Exam: Soft. absent: Tenderness - Rectal Exam Rectal Exam: Deferred - Extremities Exam Extremities Exam: absent: Full ROM (limited ROM on right hip) - Neurological Exam Neurological Exam: Alert, Oriented x3 - Psychiatric Exam Psychiatric exam: Normal Affect - Skin Skin Exam: Dry, Intact Assessment and Plan - Assessment and Plan (Free Text) Assessment: 72 yo female with history of HTN and AFib had right THR on 03/25/18 after failing conservative management of chronic pain on the right hip. 1. Post Right THR POD # 7 continue PT/OT continue Percocet for pain management 2. Paroxysmal A Fib rate controlled presently in sinus rhythm continue Nadolol 20mg PO daily 3. Hypertension BP controlled on Nadolol 4. Oral Trush Mycostatin susp 5 cc swish and swallow TID 5. DVT prophylaxis Lovenox 40mg SC daily
[2018-04-01] MEDS: Docusate-Senna 50 mg-8.6 mg Tab PO SCH (21:16)
[2018-04-02] MEDS: Oxycodone/Acetaminophen 5/325 mg Tab PO PRN ×5 (03:16→21:08)
[2018-04-02] MEDS: Enoxaparin 40 mg Syringe SC SCH (08:22)
[2018-04-02] MEDS: Nystatin 100,000 Units/ml Oral Susp 5 ml UD PO SCH ×3 (08:23→17:22)
[2018-04-02] MEDS: Cholecalciferol 1,000 INTLU TAB PO SCH (08:23)
--- NOTE | 2018-04-02 11:30 | CP.PCM.PN ---
Subjective - Date & Time of Evaluation Date of Evaluation: 04/02/19 Time of Evaluation: 09:30 - Subjective Subjective: NO CHEST PAIN OR SOB DOING BETTER AND DOING WELL AT REHAB Objective - Vital Signs/Intake and Output Vital Signs (last 24 hours): Temp Pulse Resp BP Pulse Ox 98.1 F 81 20 141/75 97 04/02/18 07:48 04/02/18 08:22 04/02/18 07:48 04/02/18 08:22 04/02/18 07:48 - Medications Medications: Current Medications Acetaminophen (Tylenol 325mg Tab) 650 mg PO Q6 PRN PRN Reason: Pain, Mild (1-3) Cholecalciferol (Vitamin D) 2,000 intlu PO DAILY [facility] Last Admin: 04/02/18 08:23 Dose: 2,000 intlu Enoxaparin Sodium (Lovenox) 40 mg SC DAILY [facility] PRN Reason: Protocol Last Admin: 04/02/18 08:22 Dose: 40 mg Famotidine (Pepcid) 20 mg PO DAILY@2100 [facility] Last Admin: 04/01/18 21:15 Dose: 20 mg Ferrous Sulfate (Feosol) 325 mg PO TID [facility] Last Admin: 04/02/18 08:22 Dose: 325 mg Magnesium Hydroxide (Milk Of Magnesia) 30 ml PO DAILY [facility] PRN Reason: Constipation Nadolol (Corgard) 20 mg PO DAILY [facility] Last Admin: 04/02/18 08:22 Dose: 20 mg Nystatin (Nystatin Oral Susp) 5 ml PO TID [facility] Last Admin: 04/02/18 08:23 Dose: 5 ml Ondansetron HCl (Zofran Odt) 4 mg PO Q8H PRN PRN Reason: Nausea/Vomiting Last Admin: 03/31/18 15:24 Dose: 4 mg Oxycodone/Acetaminophen (Percocet 5/325 Mg Tab) 1 tab PO Q4 PRN PRN Reason: Pain, moderate (4-7) Stop: 04/04/18 13:01 Oxycodone/Acetaminophen (Percocet 5/325 Mg Tab) 2 tab PO Q4 PRN PRN Reason: Pain, severe (8-10) Stop: 04/04/18 17:01 Last Admin: 04/02/18 08:20 Dose: 2 tab Senna/Docusate Sodium (Senokot S 50 Mg-8.6 Mg) 2 tab PO HS [facility] Last Admin: 04/01/18 21:16 Dose: 2 tab Sucralfate (Carafate Tab) 1 gm PO TID@0630,1130,1630 [facility] Last Admin: 04/02/18 06:22 Dose: 1 gm - Respiratory Exam Respiratory Exam: Clear to Ausculation Bilateral - Cardiovascular Exam Cardiovascular Exam: REGULAR RHYTHM, +S1, +S2 - Extremities Exam Additional comments: SOME EDEMA IN RLE Assessment and Plan - Assessment and Plan (Free Text) Assessment: S/P RIGHT THR HYPERTENSION Plan: CONTINUE CORGARD AND LOVENOX CONTINUE REHAB
--- NOTE | 2018-04-02 14:37 | CP.PCM.PN ---
Subjective - Date & Time of Evaluation Date of Evaluation: 04/02/18 Time of Evaluation: 14:37 - Subjective Subjective: Patient seen and examined OOB ambulating with PT. Pain improved. Progressing well with PT. No new complaints. Objective - Vital Signs/Intake and Output Vital Signs (last 24 hours): Temp Pulse Resp BP Pulse Ox 98.1 F 81 20 141/75 97 04/02/18 07:48 04/02/18 08:22 04/02/18 07:48 04/02/18 08:22 04/02/18 07:48 - Medications Medications: Current Medications Acetaminophen (Tylenol 325mg Tab) 650 mg PO Q6 PRN PRN Reason: Pain, Mild (1-3) Cholecalciferol (Vitamin D) 2,000 intlu PO DAILY [facility] Last Admin: 04/02/18 08:23 Dose: 2,000 intlu Enoxaparin Sodium (Lovenox) 40 mg SC DAILY [facility] PRN Reason: Protocol Last Admin: 04/02/18 08:22 Dose: 40 mg Famotidine (Pepcid) 20 mg PO DAILY@2100 [facility] Last Admin: 04/01/18 21:15 Dose: 20 mg Ferrous Sulfate (Feosol) 325 mg PO TID [facility] Last Admin: 04/02/18 12:28 Dose: 325 mg Magnesium Hydroxide (Milk Of Magnesia) 30 ml PO DAILY PRN PRN Reason: Constipation Nadolol (Corgard) 20 mg PO DAILY [facility] Last Admin: 04/02/18 08:22 Dose: 20 mg Nystatin (Nystatin Oral Susp) 5 ml PO TID [facility] Last Admin: 04/02/18 14:19 Dose: 5 ml Ondansetron HCl (Zofran Odt) 4 mg PO Q8H PRN PRN Reason: Nausea/Vomiting Last Admin: 03/31/18 15:24 Dose: 4 mg Oxycodone/Acetaminophen (Percocet 5/325 Mg Tab) 1 tab PO Q4 PRN PRN Reason: Pain, moderate (4-7) Stop: 04/04/18 13:01 Oxycodone/Acetaminophen (Percocet 5/325 Mg Tab) 2 tab PO Q4 PRN PRN Reason: Pain, severe (8-10) Stop: 04/04/18 17:01 Last Admin: 04/02/18 12:27 Dose: 2 tab Senna/Docusate Sodium (Senokot S 50 Mg-8.6 Mg) 2 tab PO HS [facility] Last Admin: 04/01/18 21:16 Dose: 2 tab Sucralfate (Carafate Tab) 1 gm PO TID@0630,1130,1630 [facility] Last Admin: 04/02/18 12:23 Dose: 1 gm - Extremities Exam Additional comments: R hip: VIDYA dressing intact no drainage no erythema swelling continues to improve sensation intact SP/DP/TN motor intact EHL/FHL/TA/G pedal pulses intact comps soft NT Assessment and Plan (1) Primary osteoarthritis of right hip Assessment & Plan: POD #8 s/p R GAIL doing well -Maintain VIDYA dressing -PT/OT FWB -frequent icing of R hip -DVT ppx -orthopedically stable -above d/w Dr. Andrade in agreement Status: Acute
[2018-04-02] MEDS: Magnesium Hydroxide Susp 30 ml UD PO PRN (18:48)
[2018-04-02] MEDS: Docusate-Senna 50 mg-8.6 mg Tab PO SCH (21:04)
[2018-04-03] MEDS: Oxycodone/Acetaminophen 5/325 mg Tab PO PRN ×5 (01:47→21:15)
--- NOTE | 2018-04-03 08:28 | CP.PCM.PN ---
Subjective - Date & Time of Evaluation Date of Evaluation: 04/03/18 Time of Evaluation: 07:45 - Subjective Subjective: Patient seen and examined at bedside comfortable. Pain well controlled. No new complaints. Objective - Vital Signs/Intake and Output Vital Signs (last 24 hours): Temp Pulse Resp BP Pulse Ox 98.1 F 74 20 109/55 L 100 04/03/18 08:21 04/03/18 08:21 04/03/18 08:21 04/03/18 08:21 04/03/18 08:21 - Medications Medications: Current Medications Acetaminophen (Tylenol 325mg Tab) 650 mg PO Q6 PRN PRN Reason: Pain, Mild (1-3) Cholecalciferol (Vitamin D) 2,000 intlu PO DAILY [facility] Last Admin: 04/02/18 08:23 Dose: 2,000 intlu Enoxaparin Sodium (Lovenox) 40 mg SC DAILY [facility] PRN Reason: Protocol Last Admin: 04/02/18 08:22 Dose: 40 mg Famotidine (Pepcid) 20 mg PO DAILY@2100 [facility] Last Admin: 04/02/18 21:05 Dose: 20 mg Ferrous Sulfate (Feosol) 325 mg PO TID [facility] Last Admin: 04/02/18 17:22 Dose: Not Given Magnesium Hydroxide (Milk Of Magnesia) 30 ml PO DAILY PRN PRN Reason: Constipation Last Admin: 04/02/18 18:48 Dose: 30 ml Nadolol (Corgard) 20 mg PO DAILY [facility] Last Admin: 04/02/18 08:22 Dose: 20 mg Nystatin (Nystatin Oral Susp) 5 ml PO TID [facility] Last Admin: 04/02/18 17:22 Dose: 5 ml Ondansetron HCl (Zofran Odt) 4 mg PO Q8H PRN PRN Reason: Nausea/Vomiting Last Admin: 04/02/18 21:04 Dose: 4 mg Oxycodone/Acetaminophen (Percocet 5/325 Mg Tab) 1 tab PO Q4 PRN PRN Reason: Pain, moderate (4-7) Stop: 04/04/18 13:01 Last Admin: 04/02/18 17:48 Dose: 1 tab Oxycodone/Acetaminophen (Percocet 5/325 Mg Tab) 2 tab PO Q4 PRN PRN Reason: Pain, severe (8-10) Stop: 04/04/18 17:01 Last Admin: 04/03/18 01:47 Dose: 2 tab Senna/Docusate Sodium (Senokot S 50 Mg-8.6 Mg) 2 tab PO HS [facility] Last Admin: 04/02/18 21:04 Dose: 2 tab Sucralfate (Carafate Tab) 1 gm PO TID@0630,1130,1630 [facility] Last Admin: 04/03/18 06:12 Dose: Not Given - Extremities Exam Additional comments: R hip: VIDYA dressing intact no drainage no erythema, VIDYA removed revealing wound CDI with [place] sensation intact SP/DP/TN motor intact EHL/FHL/TA/G pedal pulses intact comps soft NT Assessment and Plan (1) Primary osteoarthritis of right hip Assessment & Plan: POD #9 s/p R GAIL doing well -VIDYA removed, dry opsite dressing placed -PT/OT FWB -DVT ppx -orthopedically stable -above d/w Dr. Andrade in agreement Status: Acute
[2018-04-03] MEDS: Enoxaparin 40 mg Syringe SC SCH (09:02)
[2018-04-03] MEDS: Nystatin 100,000 Units/ml Oral Susp 5 ml UD PO SCH ×3 (09:03→16:16)
[2018-04-03] MEDS: Cholecalciferol 1,000 INTLU TAB PO SCH (09:04)
--- NOTE | 2018-04-03 09:52 | CP.PCM.PN ---
Subjective - Date & Time of Evaluation Date of Evaluation: 04/03/18 Time of Evaluation: 09:00 - Subjective Subjective: NO NEW COMPLAINTS DOING WELL AT REHAB Objective - Vital Signs/Intake and Output Vital Signs (last 24 hours): Temp Pulse Resp BP Pulse Ox 98.1 F 74 20 109/55 L 100 04/03/18 08:21 04/03/18 09:05 04/03/18 08:21 04/03/18 09:05 04/03/18 08:21 - Medications Medications: Current Medications Acetaminophen (Tylenol 325mg Tab) 650 mg PO Q6 PRN PRN Reason: Pain, Mild (1-3) Cholecalciferol (Vitamin D) 2,000 intlu PO DAILY [facility] Last Admin: 04/03/18 09:04 Dose: 2,000 intlu Enoxaparin Sodium (Lovenox) 40 mg SC DAILY [facility] PRN Reason: Protocol Last Admin: 04/03/18 09:02 Dose: 40 mg Famotidine (Pepcid) 20 mg PO DAILY@2100 [facility] Last Admin: 04/02/18 21:05 Dose: 20 mg Ferrous Sulfate (Feosol) 325 mg PO TID [facility] Last Admin: 04/03/18 09:03 Dose: 325 mg Magnesium Hydroxide (Milk Of Magnesia) 30 ml PO DAILY PRN PRN Reason: Constipation Last Admin: 04/02/18 18:48 Dose: 30 ml Nadolol (Corgard) 20 mg PO DAILY [facility] Last Admin: 04/03/18 09:05 Dose: 20 mg Nystatin (Nystatin Oral Susp) 5 ml PO TID [facility] Last Admin: 04/03/18 09:03 Dose: 5 ml Ondansetron HCl (Zofran Odt) 4 mg PO Q8H PRN PRN Reason: Nausea/Vomiting Last Admin: 04/02/18 21:04 Dose: 4 mg Oxycodone/Acetaminophen (Percocet 5/325 Mg Tab) 1 tab PO Q4 PRN PRN Reason: Pain, moderate (4-7) Stop: 04/04/18 13:01 Last Admin: 04/03/18 09:03 Dose: 1 tab Oxycodone/Acetaminophen (Percocet 5/325 Mg Tab) 2 tab PO Q4 PRN PRN Reason: Pain, severe (8-10) Stop: 04/04/18 17:01 Last Admin: 04/03/18 01:47 Dose: 2 tab Senna/Docusate Sodium (Senokot S 50 Mg-8.6 Mg) 2 tab PO HS [facility] Last Admin: 04/02/18 21:04 Dose: 2 tab Sucralfate (Carafate Tab) 1 gm PO TID@0630,1130,1630 [facility] Last Admin: 04/03/18 06:12 Dose: Not Given - Respiratory Exam Respiratory Exam: Clear to Ausculation Bilateral - Cardiovascular Exam Cardiovascular Exam: REGULAR RHYTHM, +S1, +S2 Assessment and Plan - Assessment and Plan (Free Text) Assessment: S/P RIGHT THR HYPERTENSION Plan: CONTINUE CORGARD AND LOVENOX
--- NOTE | 2018-04-03 14:13 | CP.PCM.PN ---
Subjective - Date & Time of Evaluation Date of Evaluation: 04/03/18 Time of Evaluation: 11:00 - Subjective Subjective: Patient seen and examined at bedside. States that her appetite has decreased somewhat. C/o increased swelling to left thigh and knee. Denies any cp/sob. Doing well with PT/OT. Objective - Vital Signs/Intake and Output Vital Signs (last 24 hours): Temp Pulse Resp BP Pulse Ox 98.1 F 74 20 109/55 L 100 04/03/18 08:21 04/03/18 09:05 04/03/18 08:21 04/03/18 09:05 04/03/18 08:21 - Medications Medications: Current Medications Acetaminophen (Tylenol 325mg Tab) 650 mg PO Q6 PRN PRN Reason: Pain, Mild (1-3) Cholecalciferol (Vitamin D) 2,000 intlu PO DAILY [facility] Last Admin: 04/03/18 09:04 Dose: 2,000 intlu Enoxaparin Sodium (Lovenox) 40 mg SC DAILY [facility] PRN Reason: Protocol Last Admin: 04/03/18 09:02 Dose: 40 mg Famotidine (Pepcid) 20 mg PO DAILY@2100 [facility] Last Admin: 04/02/18 21:05 Dose: 20 mg Ferrous Sulfate (Feosol) 325 mg PO TID [facility] Last Admin: 04/03/18 12:38 Dose: 325 mg Magnesium Hydroxide (Milk Of Magnesia) 30 ml PO DAILY PRN PRN Reason: Constipation Last Admin: 04/02/18 18:48 Dose: 30 ml Nadolol (Corgard) 20 mg PO DAILY [facility] Last Admin: 04/03/18 09:05 Dose: 20 mg Nystatin (Nystatin Oral Susp) 5 ml PO TID [facility] Last Admin: 04/03/18 12:39 Dose: 5 ml Ondansetron HCl (Zofran Odt) 4 mg PO Q8H PRN PRN Reason: Nausea/Vomiting Last Admin: 04/02/18 21:04 Dose: 4 mg Oxycodone/Acetaminophen (Percocet 5/325 Mg Tab) 1 tab PO Q4 PRN PRN Reason: Pain, moderate (4-7) Stop: 04/04/18 13:01 Last Admin: 04/03/18 09:03 Dose: 1 tab Oxycodone/Acetaminophen (Percocet 5/325 Mg Tab) 2 tab PO Q4 PRN PRN Reason: Pain, severe (8-10) Stop: 04/04/18 17:01 Last Admin: 04/03/18 12:38 Dose: 2 tab Senna/Docusate Sodium (Senokot S 50 Mg-8.6 Mg) 2 tab PO HS [facility] Last Admin: 04/02/18 21:04 Dose: 2 tab Sucralfate (Carafate Tab) 1 gm PO TID@0630,1130,1630 [facility] Last Admin: 04/03/18 11:45 Dose: 1 gm - Additional Findings Additional findings: Physical exam: Constitutional- cooperative, awake, alert Head- NCAT, PERRL Eye- PERRL, EOMI ENT- normal exam, MMM. Neck- normal inspection, supple, no JVD Respiratory- CTAB, no wheezes rales rhonchi Cardiovascular- RRR, +S1, +S2 no MRG GI/Abdominal- normal bowel sounds, soft, no mass, no hsm Skin- warm, dry Extremities Exam- decreased ROM to right hip. normal capillary refill, normal inspection Neurological Exam- alert, awake, oriented Psych- normal mood, normal affect0 Assessment and Plan - Assessment and Plan (Free Text) Plan: 72 yo female with history of HTN and AFib had right THR on 03/25/18 after failing conservative management of chronic pain on the right hip. 1. Post Right THR POD # 9 continue PT/OT continue Percocet for pain management Check RLE venous duplex to evaluate for DVT due to increased edema 2. Paroxysmal A Fib rate controlled presently in sinus rhythm continue Nadolol 20mg PO daily 3. Hypertension BP controlled on Nadolol 4. Oral Trush Mycostatin susp 5 cc swish and swallow TID 5. DVT prophylaxis Lovenox 40mg SC daily
--- NOTE | 2018-04-03 14:22 | CP.PCM.PN ---
Subjective - Date & Time of Evaluation Date of Evaluation: 04/03/18 Time of Evaluation: 14:21 - Subjective Subjective: Patient seen in the room doing ok denies sob/cp or constipation feels about 60% improvement from her initial admission function pain is controlled no numbness in the right foot right calf swelling but no tenderness and no erythema continue current care Objective - Vital Signs/Intake and Output Vital Signs (last 24 hours): Temp Pulse Resp BP Pulse Ox 98.1 F 74 20 109/55 L 100 04/03/18 08:21 04/03/18 09:05 04/03/18 08:21 04/03/18 09:05 04/03/18 08:21 - Medications Medications: Current Medications Acetaminophen (Tylenol 325mg Tab) 650 mg PO Q6 PRN PRN Reason: Pain, Mild (1-3) Cholecalciferol (Vitamin D) 2,000 intlu PO DAILY [facility] Last Admin: 04/03/18 09:04 Dose: 2,000 intlu Enoxaparin Sodium (Lovenox) 40 mg SC DAILY [facility] PRN Reason: Protocol Last Admin: 04/03/18 09:02 Dose: 40 mg Famotidine (Pepcid) 20 mg PO DAILY@2100 [facility] Last Admin: 04/02/18 21:05 Dose: 20 mg Ferrous Sulfate (Feosol) 325 mg PO TID [facility] Last Admin: 04/03/18 12:38 Dose: 325 mg Magnesium Hydroxide (Milk Of Magnesia) 30 ml PO DAILY PRN PRN Reason: Constipation Last Admin: 04/02/18 18:48 Dose: 30 ml Nadolol (Corgard) 20 mg PO DAILY [facility] Last Admin: 04/03/18 09:05 Dose: 20 mg Nystatin (Nystatin Oral Susp) 5 ml PO TID [facility] Last Admin: 04/03/18 12:39 Dose: 5 ml Ondansetron HCl (Zofran Odt) 4 mg PO Q8H PRN PRN Reason: Nausea/Vomiting Last Admin: 04/02/18 21:04 Dose: 4 mg Oxycodone/Acetaminophen (Percocet 5/325 Mg Tab) 1 tab PO Q4 PRN PRN Reason: Pain, moderate (4-7) Stop: 04/04/18 13:01 Last Admin: 04/03/18 09:03 Dose: 1 tab Oxycodone/Acetaminophen (Percocet 5/325 Mg Tab) 2 tab PO Q4 PRN PRN Reason: Pain, severe (8-10) Stop: 04/04/18 17:01 Last Admin: 04/03/18 12:38 Dose: 2 tab Senna/Docusate Sodium (Senokot S 50 Mg-8.6 Mg) 2 tab PO HS [facility] Last Admin: 04/02/18 21:04 Dose: 2 tab Sucralfate (Carafate Tab) 1 gm PO TID@0630,1130,1630 [facility] Last Admin: 04/03/18 11:45 Dose: 1 gm
--- NOTE | 2018-04-03 16:29 | US ---
Date of service: 04/03/2018 PROCEDURE: Right lower extremity venous duplex Doppler. HISTORY: DX: R/O DVT COMPARISON: None available. TECHNIQUE: Common femoral, superficial femoral, popliteal and posterior tibial veins were evaluated. Flow was assessed with color Doppler, compressibility, assessment of phasic flow and augmentation response. FINDINGS: COMMON FEMORAL VEIN: Unremarkable. SUPERFICIAL FEMORAL VEIN: Unremarkable. POPLITEAL VEIN: Unremarkable. POSTERIOR TIBIAL VEIN: Unremarkable. OTHER FINDINGS: Lower extremity primarily calf edema. IMPRESSION: No evidence of deep venous thrombosis in the right lower extremity.
[2018-04-03] MEDS: Docusate-Senna 50 mg-8.6 mg Tab PO SCH (21:12)
[2018-04-04] MEDS: Oxycodone/Acetaminophen 5/325 mg Tab PO PRN ×5 (02:46→21:49)
[2018-04-04] MEDS: Enoxaparin 40 mg Syringe SC SCH (09:05)
[2018-04-04] MEDS: Nystatin 100,000 Units/ml Oral Susp 5 ml UD PO SCH ×3 (09:05→16:46)
[2018-04-04] MEDS: Cholecalciferol 1,000 INTLU TAB PO SCH (09:06)
--- NOTE | 2018-04-04 09:16 | CP.PCM.PN ---
Subjective - Date & Time of Evaluation Date of Evaluation: 04/04/18 Time of Evaluation: 09:13 - Subjective Subjective: Patient states pain is controlled, she is improving daily. Denies CP/SOB/ dizziness. Objective - Vital Signs/Intake and Output Vital Signs (last 24 hours): Temp Pulse Resp BP Pulse Ox 98.1 F 71 20 129/80 99 04/04/18 08:19 04/04/18 09:05 04/04/18 08:19 04/04/18 09:05 04/04/18 08:19 - Medications Medications: Current Medications Acetaminophen (Tylenol 325mg Tab) 650 mg PO Q6 PRN PRN Reason: Pain, Mild (1-3) Cholecalciferol (Vitamin D) 2,000 intlu PO DAILY [facility] Last Admin: 04/04/18 09:06 Dose: 2,000 intlu Enoxaparin Sodium (Lovenox) 40 mg SC DAILY [facility] PRN Reason: Protocol Last Admin: 04/04/18 09:05 Dose: 40 mg Famotidine (Pepcid) 20 mg PO DAILY@2100 [facility] Last Admin: 04/03/18 21:12 Dose: 20 mg Ferrous Sulfate (Feosol) 325 mg PO TID [facility] Last Admin: 04/04/18 09:06 Dose: 325 mg Magnesium Hydroxide (Milk Of Magnesia) 30 ml PO DAILY PRN PRN Reason: Constipation Last Admin: 04/02/18 18:48 Dose: 30 ml Nadolol (Corgard) 20 mg PO DAILY [facility] Last Admin: 04/04/18 09:05 Dose: 20 mg Nystatin (Nystatin Oral Susp) 5 ml PO TID [facility] Last Admin: 04/04/18 09:05 Dose: 5 ml Ondansetron HCl (Zofran Odt) 4 mg PO Q8H PRN PRN Reason: Nausea/Vomiting Last Admin: 04/02/18 21:04 Dose: 4 mg Oxycodone/Acetaminophen (Percocet 5/325 Mg Tab) 1 tab PO Q4 PRN PRN Reason: Pain, moderate (4-7) Stop: 04/04/18 13:01 Last Admin: 04/03/18 16:17 Dose: 1 tab Oxycodone/Acetaminophen (Percocet 5/325 Mg Tab) 2 tab PO Q4 PRN PRN Reason: Pain, severe (8-10) Stop: 04/04/18 17:01 Last Admin: 04/04/18 09:05 Dose: 2 tab Senna/Docusate Sodium (Senokot S 50 Mg-8.6 Mg) 2 tab PO HS [facility] Last Admin: 04/03/18 21:12 Dose: 2 tab Sucralfate (Carafate Tab) 1 gm PO TID@0630,1130,1630 [facility] Last Admin: 04/04/18 06:28 Dose: 1 gm - Extremities Exam Additional comments: Right hip: incision intact, noted thigh swelling especially around incision. dry , no erythema calves soft NT neg homans++ROM ankle/toes, sensation intact +DP/ PT pulses Assessment and Plan (1) Primary osteoarthritis of right hip Assessment & Plan: POD#10 s/p right THR PT/OT ice VSS cbc VTE proph OOB d/w Dr. Andrade, agrees with above Status: Acute (2) Vitamin D deficiency Assessment & Plan: cont supp Status: Acute (3) Acute blood loss anemia Assessment & Plan: check cbc Status: Acute
[2018-04-04 10:04] LABS: HEMOGLOBIN 8.7 g/dL (12.0-16.0); MEAN CELL VOLUME 88.1 fl (81.0-99.0); MEAN CORPUSCULAR HEMOGLOBIN 29.7 pg (27.0-31.0); MEAN CORPUSCULAR HGB CONC 33.7 g/dL (33.0-37.0); RBC 2.94 Mil/uL (3.80-5.20); RED CELL DISTRIBUTION WIDTH 14.7 % (11.5-14.5); WHITE BLOOD COUNT 8.2 K/uL (4.8-10.8)
[2018-04-04] MEDS: Docusate-Senna 50 mg-8.6 mg Tab PO SCH (21:45)
[2018-04-05] MEDS: Oxycodone/Acetaminophen 5/325 mg Tab PO PRN ×5 (01:55→22:14)
[2018-04-05] MEDS: Magnesium Hydroxide Susp 30 ml UD PO PRN (06:20)
[2018-04-05] MEDS: Enoxaparin 40 mg Syringe SC SCH (08:44)
[2018-04-05] MEDS: Cholecalciferol 1,000 INTLU TAB PO SCH (08:46)
[2018-04-05] MEDS: Nystatin 100,000 Units/ml Oral Susp 5 ml UD PO SCH ×3 (08:46→16:14)
--- NOTE | 2018-04-05 09:03 | CP.PCM.PN ---
Subjective - Date & Time of Evaluation Date of Evaluation: 04/05/18 Time of Evaluation: 08:59 - Subjective Subjective: Patient seen in the room doing very well in therapies has some exudate strike through on bandage for the second time had been changed yesterday. There is no visible active exudate. lower section has some lack of full approximation As per Dr Andrade's protocol will clean with Betadine gauze and cover. He is coming in later to evaluate so an opsite like dressing will not yet be placed so he can take off the gauze dressing easily continue current care pending his evaluation Objective - Vital Signs/Intake and Output Vital Signs (last 24 hours): Temp Pulse Resp BP Pulse Ox 97.6 F 84 18 138/70 99 04/05/18 08:42 04/05/18 08:45 04/05/18 08:42 04/05/18 08:45 04/05/18 08:42 - Medications Medications: Current Medications Acetaminophen (Tylenol 325mg Tab) 650 mg PO Q6 PRN PRN Reason: Pain, Mild (1-3) Cholecalciferol (Vitamin D) 2,000 intlu PO DAILY [facility] Last Admin: 04/05/18 08:46 Dose: 2,000 intlu Enoxaparin Sodium (Lovenox) 40 mg SC DAILY [facility] PRN Reason: Protocol Last Admin: 04/05/18 08:44 Dose: 40 mg Famotidine (Pepcid) 20 mg PO DAILY@2100 [facility] Last Admin: 04/04/18 21:45 Dose: 20 mg Ferrous Sulfate (Feosol) 325 mg PO TID [facility] Last Admin: 04/05/18 08:45 Dose: 325 mg Magnesium Hydroxide (Milk Of Magnesia) 30 ml PO DAILY PRN PRN Reason: Constipation Last Admin: 04/05/18 06:20 Dose: 30 ml Nadolol (Corgard) 20 mg PO DAILY [facility] Last Admin: 04/05/18 08:45 Dose: 20 mg Nystatin (Nystatin Oral Susp) 5 ml PO TID [facility] Last Admin: 04/05/18 08:46 Dose: 5 ml Ondansetron HCl (Zofran Odt) 4 mg PO Q8H PRN PRN Reason: Nausea/Vomiting Last Admin: 04/02/18 21:04 Dose: 4 mg Oxycodone/Acetaminophen (Percocet 5/325 Mg Tab) 1 tab PO Q4 PRN PRN Reason: Pain, moderate (4-7) Stop: 04/07/18 16:43 Last Admin: 04/05/18 06:21 Dose: 1 tab Oxycodone/Acetaminophen (Percocet 5/325 Mg Tab) 2 tab PO Q4 PRN PRN Reason: Pain, severe (8-10) Stop: 04/07/18 20:45 Last Admin: 04/05/18 01:55 Dose: 2 tab Senna/Docusate Sodium (Senokot S 50 Mg-8.6 Mg) 2 tab PO HS [facility] Last Admin: 04/04/18 21:45 Dose: 2 tab Sucralfate (Carafate Tab) 1 gm PO TID@0630,1130,1630 [facility] Last Admin: 04/05/18 06:18 Dose: 1 gm - Labs Labs: 04/04/18 09:58
--- NOTE | 2018-04-05 11:14 | CP.PCM.PN ---
Subjective - Date & Time of Evaluation Date of Evaluation: 04/05/18 Time of Evaluation: 10:45 - Subjective Subjective: S- pt comfortable at bedrest Objective - Vital Signs/Intake and Output Vital Signs (last 24 hours): Temp Pulse Resp BP Pulse Ox 97.6 F 84 18 138/70 99 04/05/18 08:42 04/05/18 08:45 04/05/18 08:42 04/05/18 08:45 04/05/18 08:42 - Medications Medications: Current Medications Acetaminophen (Tylenol 325mg Tab) 650 mg PO Q6 PRN PRN Reason: Pain, Mild (1-3) Cholecalciferol (Vitamin D) 2,000 intlu PO DAILY [facility] Last Admin: 04/05/18 08:46 Dose: 2,000 intlu Enoxaparin Sodium (Lovenox) 40 mg SC DAILY [facility] PRN Reason: Protocol Last Admin: 04/05/18 08:44 Dose: 40 mg Famotidine (Pepcid) 20 mg PO DAILY@2100 [facility] Last Admin: 04/04/18 21:45 Dose: 20 mg Ferrous Sulfate (Feosol) 325 mg PO TID [facility] Last Admin: 04/05/18 08:45 Dose: 325 mg Magnesium Hydroxide (Milk Of Magnesia) 30 ml PO DAILY PRN PRN Reason: Constipation Last Admin: 04/05/18 06:20 Dose: 30 ml Nadolol (Corgard) 20 mg PO DAILY [facility] Last Admin: 04/05/18 08:45 Dose: 20 mg Nystatin (Nystatin Oral Susp) 5 ml PO TID [facility] Last Admin: 04/05/18 08:46 Dose: 5 ml Ondansetron HCl (Zofran Odt) 4 mg PO Q8H PRN PRN Reason: Nausea/Vomiting Last Admin: 04/02/18 21:04 Dose: 4 mg Oxycodone/Acetaminophen (Percocet 5/325 Mg Tab) 1 tab PO Q4 PRN PRN Reason: Pain, moderate (4-7) Stop: 04/07/18 16:43 Last Admin: 04/05/18 06:21 Dose: 1 tab Oxycodone/Acetaminophen (Percocet 5/325 Mg Tab) 2 tab PO Q4 PRN PRN Reason: Pain, severe (8-10) Stop: 04/07/18 20:45 Last Admin: 04/05/18 01:55 Dose: 2 tab Senna/Docusate Sodium (Senokot S 50 Mg-8.6 Mg) 2 tab PO HS [facility] Last Admin: 04/04/18 21:45 Dose: 2 tab Sucralfate (Carafate Tab) 1 gm PO TID@0630,1130,1630 [facility] Last Admin: 04/05/18 06:18 Dose: 1 gm - Labs Labs: 04/04/18 09:58 - Additional Findings Additional findings: Objective R hip[wpund beign N/V intact no gross progressive deficits orthopedically stab;e N/V intact Assessment and Plan - Assessment and Plan (Free Text) Assessment: A- minimal amt of serorus drainage no evidencfe for sepsis P- orthipedially stable betadine wet to dry dressing changes Cleocin 300 mg po bid ( prophylacyically)
[2018-04-05 16:53] VITALS: RESP 20
[2018-04-05] MEDS: Docusate-Senna 50 mg-8.6 mg Tab PO SCH (21:03)
[2018-04-06] MEDS: Oxycodone/Acetaminophen 5/325 mg Tab PO PRN ×5 (03:52→21:41)
[2018-04-06] MEDS: Nystatin 100,000 Units/ml Oral Susp 5 ml UD PO SCH ×3 (09:11→17:23)
[2018-04-06] MEDS: Cholecalciferol 1,000 INTLU TAB PO SCH (09:11)
[2018-04-06] MEDS: Enoxaparin 40 mg Syringe SC SCH (10:03)
--- NOTE | 2018-04-06 10:22 | CP.PCM.PN ---
Subjective - Date & Time of Evaluation Date of Evaluation: 04/06/18 Time of Evaluation: 09:30 - Subjective Subjective: NO CHEST PAIN OR SOB FEELS OK Objective - Vital Signs/Intake and Output Vital Signs (last 24 hours): Temp Pulse Resp BP Pulse Ox 97.9 F 68 20 130/65 99 04/06/18 08:27 04/06/18 09:10 04/06/18 08:27 04/06/18 09:10 04/06/18 08:27 - Medications Medications: Current Medications Acetaminophen (Tylenol 325mg Tab) 650 mg PO Q6 PRN PRN Reason: Pain, Mild (1-3) Cholecalciferol (Vitamin D) 2,000 intlu PO DAILY [facility] Last Admin: 04/06/18 09:11 Dose: 2,000 intlu Clindamycin HCl (Cleocin) 300 mg PO BID [facility] PRN Reason: Protocol Last Admin: 04/06/18 09:10 Dose: 300 mg Enoxaparin Sodium (Lovenox) 40 mg SC DAILY [facility] PRN Reason: Protocol Last Admin: 04/06/18 10:03 Dose: 40 mg Famotidine (Pepcid) 20 mg PO DAILY@2100 [facility] Last Admin: 04/05/18 21:03 Dose: 20 mg Ferrous Sulfate (Feosol) 325 mg PO TID [facility] Last Admin: 04/06/18 09:10 Dose: 325 mg Magnesium Hydroxide (Milk Of Magnesia) 30 ml PO DAILY [facility] PRN Reason: Constipation Last Admin: 04/05/18 06:20 Dose: 30 ml Nadolol (Corgard) 20 mg PO DAILY [facility] Last Admin: 04/06/18 09:10 Dose: 20 mg Nystatin (Nystatin Oral Susp) 5 ml PO TID [facility] Last Admin: 04/06/18 09:11 Dose: 5 ml Ondansetron HCl (Zofran Odt) 4 mg PO Q8H PRN PRN Reason: Nausea/Vomiting Last Admin: 04/02/18 21:04 Dose: 4 mg Oxycodone/Acetaminophen (Percocet 5/325 Mg Tab) 1 tab PO Q4 PRN PRN Reason: Pain, moderate (4-7) Stop: 04/07/18 16:43 Last Admin: 04/05/18 06:21 Dose: 1 tab Oxycodone/Acetaminophen (Percocet 5/325 Mg Tab) 2 tab PO Q4 PRN PRN Reason: Pain, severe (8-10) Stop: 04/07/18 20:45 Last Admin: 04/06/18 09:09 Dose: 2 tab Senna/Docusate Sodium (Senokot S 50 Mg-8.6 Mg) 2 tab PO HS [facility] Last Admin: 04/05/18 21:03 Dose: 2 tab Sucralfate (Carafate Tab) 1 gm PO TID@0630,1130,1630 [facility] Last Admin: 04/06/18 06:30 Dose: 1 gm - Labs Labs: 04/04/18 09:58 - Respiratory Exam Respiratory Exam: Clear to Ausculation Bilateral - Cardiovascular Exam Cardiovascular Exam: REGULAR RHYTHM, +S1, +S2 - Additional Findings Additional findings: DR WEINER'S NOTES REVIEWED WITH SLIGHT SEROUS DRAINAGE AT SURGICAL SITE Assessment and Plan - Assessment and Plan (Free Text) Assessment: S/P RIGH HIP REPLACEMENT HYPERTENSION Plan: CONTINUE CORGARD AND LOVENOX CLEOCIN STARTED
[2018-04-06] MEDS: Docusate-Senna 50 mg-8.6 mg Tab PO SCH (21:39)
[2018-04-07] MEDS: Oxycodone/Acetaminophen 5/325 mg Tab PO PRN ×5 (02:42→23:38)
[2018-04-07] MEDS ORDERED: Oxycodone/Acetaminophen 5/325 mg Tab PO STA (05:06)
--- NOTE | 2018-04-07 07:58 | CP.PCM.PN ---
Subjective - Date & Time of Evaluation Date of Evaluation: 04/07/18 Time of Evaluation: 07:45 - Subjective Subjective: Patient seen and examined with Dr. Prince who is covering for Dr. Andrade. Pain continues to improve. Wound drainage from mid wound began over weekend. No new complaints Objective - Vital Signs/Intake and Output Vital Signs (last 24 hours): Temp Pulse Resp BP Pulse Ox 98.8 F 76 20 113/57 L 99 04/06/18 21:40 04/06/18 21:40 04/06/18 21:40 04/06/18 21:40 04/06/18 21:40 - Medications Medications: Current Medications Acetaminophen (Tylenol 325mg Tab) 650 mg PO Q6 PRN PRN Reason: Pain, Mild (1-3) Cholecalciferol (Vitamin D) 2,000 intlu PO DAILY [facility] Last Admin: 04/06/18 09:11 Dose: 2,000 intlu Clindamycin HCl (Cleocin) 300 mg PO BID [facility] PRN Reason: Protocol Last Admin: 04/06/18 17:23 Dose: 300 mg Enoxaparin Sodium (Lovenox) 40 mg SC DAILY [facility] PRN Reason: Protocol Last Admin: 04/06/18 10:03 Dose: 40 mg Famotidine (Pepcid) 20 mg PO DAILY@2100 [facility] Last Admin: 04/06/18 21:39 Dose: 20 mg Ferrous Sulfate (Feosol) 325 mg PO TID [facility] Last Admin: 04/06/18 17:23 Dose: 325 mg Magnesium Hydroxide (Milk Of Magnesia) 30 ml PO DAILY [facility]N PRN Reason: Constipation Last Admin: 04/05/18 06:20 Dose: 30 ml Nadolol (Corgard) 20 mg PO DAILY [facility] Last Admin: 04/06/18 09:10 Dose: 20 mg Nystatin (Nystatin Oral Susp) 5 ml PO TID [facility] Last Admin: 04/06/18 17:23 Dose: 5 ml Ondansetron HCl (Zofran Odt) 4 mg PO Q8H PRN PRN Reason: Nausea/Vomiting Last Admin: 04/02/18 21:04 Dose: 4 mg Oxycodone/Acetaminophen (Percocet 5/325 Mg Tab) 1 tab PO Q4 PRN PRN Reason: Pain, moderate (4-7) Stop: 04/07/18 16:43 Last Admin: 04/07/18 02:42 Dose: 1 tab Oxycodone/Acetaminophen (Percocet 5/325 Mg Tab) 2 tab PO Q4 PRN PRN Reason: Pain, severe (8-10) Stop: 04/07/18 20:45 Last Admin: 04/06/18 21:41 Dose: 2 tab Senna/Docusate Sodium (Senokot S 50 Mg-8.6 Mg) 2 tab PO HS [facility] Last Admin: 04/06/18 21:39 Dose: 2 tab Sucralfate (Carafate Tab) 1 gm PO TID@0630,1130,1630 [facility] Last Admin: 04/07/18 05:31 Dose: 1 gm - Labs Labs: 04/04/18 09:58 - Extremities Exam Additional comments: R hip: Wet to dry Betadine dressings intacct, wound intact with minimal weeping serous drainage from mid wound sensation intact SP/DP/TN motor intact EHL/FHL/TA/G pedal pulses intact comps soft NT Assessment and Plan (1) Primary osteoarthritis of right hip Assessment & Plan: POD #13 s/p R GAIL doing well -Wet to dry betadine dressings changed, will continue until drainage stops -hold lovenox, start IV ancef until drainage ceases -PT/OT FWB -orthopedically stable -above d/w Dr. Andrade/Niki in agreement Status: Acute
--- NOTE | 2018-04-07 08:23 | CP.PCM.PN ---
Subjective - Date & Time of Evaluation Date of Evaluation: 04/07/18 Time of Evaluation: 07:45 - Subjective Subjective: NO CHEST PAIN OR SOB PAIN AT SURGICAL SITE Objective - Vital Signs/Intake and Output Vital Signs (last 24 hours): Temp Pulse Resp BP Pulse Ox 98.8 F 76 20 113/57 L 99 04/06/18 21:40 04/06/18 21:40 04/06/18 21:40 04/06/18 21:40 04/06/18 21:40 - Medications Medications: Current Medications Acetaminophen (Tylenol 325mg Tab) 650 mg PO Q6 PRN PRN Reason: Pain, Mild (1-3) Cholecalciferol (Vitamin D) 2,000 intlu PO DAILY [facility] Last Admin: 04/06/18 09:11 Dose: 2,000 intlu Clindamycin HCl (Cleocin) 300 mg PO BID [facility] PRN Reason: Protocol Last Admin: 04/06/18 17:23 Dose: 300 mg Enoxaparin Sodium (Lovenox) 40 mg SC DAILY [facility] PRN Reason: Protocol Last Admin: 04/06/18 10:03 Dose: 40 mg Famotidine (Pepcid) 20 mg PO DAILY@2100 [facility] Last Admin: 04/06/18 21:39 Dose: 20 mg Ferrous Sulfate (Feosol) 325 mg PO TID [facility] Last Admin: 04/06/18 17:23 Dose: 325 mg Magnesium Hydroxide (Milk Of Magnesia) 30 ml PO DAILY PRN PRN Reason: Constipation Last Admin: 04/05/18 06:20 Dose: 30 ml Nadolol (Corgard) 20 mg PO DAILY [facility] Last Admin: 04/06/18 09:10 Dose: 20 mg Nystatin (Nystatin Oral Susp) 5 ml PO TID [facility] Last Admin: 04/06/18 17:23 Dose: 5 ml Ondansetron HCl (Zofran Odt) 4 mg PO Q8H PRN PRN Reason: Nausea/Vomiting Last Admin: 04/02/18 21:04 Dose: 4 mg Oxycodone/Acetaminophen (Percocet 5/325 Mg Tab) 1 tab PO Q4 PRN PRN Reason: Pain, moderate (4-7) Stop: 04/07/18 16:43 Last Admin: 04/07/18 02:42 Dose: 1 tab Oxycodone/Acetaminophen (Percocet 5/325 Mg Tab) 2 tab PO Q4 PRN PRN Reason: Pain, severe (8-10) Stop: 04/07/18 20:45 Last Admin: 04/06/18 21:41 Dose: 2 tab Senna/Docusate Sodium (Senokot S 50 Mg-8.6 Mg) 2 tab PO HS [facility] Last Admin: 04/06/18 21:39 Dose: 2 tab Sucralfate (Carafate Tab) 1 gm PO TID@0630,1130,1630 [facility] Last Admin: 04/07/18 05:31 Dose: 1 gm - Labs Labs: 04/04/18 09:58 - Respiratory Exam Respiratory Exam: Clear to Ausculation Bilateral - Cardiovascular Exam Cardiovascular Exam: REGULAR RHYTHM, +S1, +S2 - Extremities Exam Additional comments: SOME SWELLING OF RLE Assessment and Plan - Assessment and Plan (Free Text) Assessment: S/P RIGHT THR HYPERTENSION Plan: CONTINUE CORGARD AND ANTIBIOTICS
[2018-04-07] MEDS: Cholecalciferol 1,000 INTLU TAB PO SCH (08:59)
[2018-04-07] MEDS: Enoxaparin 40 mg Syringe SC SCH (08:59)
[2018-04-07] MEDS: Nystatin 100,000 Units/ml Oral Susp 5 ml UD PO SCH ×3 (09:00→16:23)
[2018-04-07 11:16] LABS: HEMOGLOBIN 8.2 g/dL (12.0-16.0); MEAN CELL VOLUME 87.5 fl (81.0-99.0); MEAN CORPUSCULAR HEMOGLOBIN 29.9 pg (27.0-31.0); MEAN CORPUSCULAR HGB CONC 34.2 g/dL (33.0-37.0); RBC 2.73 Mil/uL (3.80-5.20); RED CELL DISTRIBUTION WIDTH 15.2 % (11.5-14.5); WHITE BLOOD COUNT 6.3 K/uL (4.8-10.8)
[2018-04-07 11:32] LABS: BLOOD UREA NITROGEN 11 mg/dl (7-17); CALCIUM 8.7 mg/dL (8.4-10.2); GFR AFRICAN-AMERICAN > 60; GFR NON-AFRICAN AMERICAN > 60
[2018-04-07] MEDS ORDERED: Potassium Chloride 20 mEq ER Tab PO ONE (12:33)
[2018-04-07] MEDS: ceFAZolin IV 1 gm in Dextrose 1 GM/50 ML BAG IVPB SCH ×2 (16:30→21:17)
[2018-04-07] MEDS: Docusate-Senna 50 mg-8.6 mg Tab PO SCH (21:16)
[2018-04-07] MEDS: Magnesium Hydroxide Susp 30 ml UD PO PRN (21:16)
[2018-04-08] MEDS: ceFAZolin IV 1 gm in Dextrose 1 GM/50 ML BAG IVPB SCH ×2 (05:31→13:46)
[2018-04-08] MEDS: Oxycodone/Acetaminophen 5/325 mg Tab PO PRN ×4 (05:35→22:15)
[2018-04-08] MEDS: Nystatin 100,000 Units/ml Oral Susp 5 ml UD PO SCH ×3 (08:10→16:37)
[2018-04-08] MEDS: Cholecalciferol 1,000 INTLU TAB PO SCH (08:11)
--- NOTE | 2018-04-08 09:13 | CP.PCM.PN ---
Subjective - Date & Time of Evaluation Date of Evaluation: 04/08/18 Time of Evaluation: 08:30 - Subjective Subjective: Patient seen and examined at bedside. Pain mild but controlled, able to get OOB on her own. No new complaints. Objective - Vital Signs/Intake and Output Vital Signs (last 24 hours): Temp Pulse Resp BP Pulse Ox 98.4 F 70 20 113/69 99 04/07/18 20:18 04/08/18 08:10 04/07/18 20:18 04/08/18 08:10 04/07/18 20:18 - Medications Medications: Current Medications Acetaminophen (Tylenol 325mg Tab) 650 mg PO Q6 PRN PRN Reason: Pain, Mild (1-3) Cholecalciferol (Vitamin D) 2,000 intlu PO DAILY [facility] Last Admin: 04/08/18 08:11 Dose: 2,000 intlu Famotidine (Pepcid) 20 mg PO DAILY@2100 [facility] Last Admin: 04/07/18 21:16 Dose: 20 mg Ferrous Sulfate (Feosol) 325 mg PO TID [facility] Last Admin: 04/08/18 08:09 Dose: 325 mg Cefazolin Sodium/Dextrose (Ancef Iv 1 Gm Duplex) 1 gm in 50 mls @ 50 mls/hr IVPB Q8@0500,1300,2100 [facility] PRN Reason: Protocol Last Admin: 04/08/18 05:31 Dose: 50 mls/hr Magnesium Hydroxide (Milk Of Magnesia) 30 ml PO DAILY PRN PRN Reason: Constipation Last Admin: 04/07/18 21:16 Dose: 30 ml Nadolol (Corgard) 20 mg PO DAILY [facility] Last Admin: 04/08/18 08:10 Dose: 20 mg Nystatin (Nystatin Oral Susp) 5 ml PO TID [facility] Last Admin: 04/08/18 08:10 Dose: 5 ml Ondansetron HCl (Zofran Odt) 4 mg PO Q8H PRN PRN Reason: Nausea/Vomiting Last Admin: 04/02/18 21:04 Dose: 4 mg Oxycodone/Acetaminophen (Percocet 5/325 Mg Tab) 1 tab PO Q4 PRN PRN Reason: Pain, moderate (4-7) Stop: 04/10/18 17:49 Last Admin: 04/08/18 05:35 Dose: 1 tab Oxycodone/Acetaminophen (Percocet 5/325 Mg Tab) 2 tab PO Q4 PRN PRN Reason: Pain, severe (8-10) Stop: 04/10/18 21:14 Last Admin: 04/08/18 08:16 Dose: 2 tab Senna/Docusate Sodium (Senokot S 50 Mg-8.6 Mg) 2 tab PO HS [facility] Last Admin: 04/07/18 21:16 Dose: 2 tab Sucralfate (Carafate Tab) 1 gm PO TID@0630,1130,1630 [facility] Last Admin: 04/08/18 05:32 Dose: 1 gm - Labs Labs: 04/07/18 11:10 04/07/18 11:10 - Extremities Exam Additional comments: R hip: Wet to dry Betadine dressings intact, wound intact with scant serous drainage from mid wound significantly improved from yesterday sensation intact SP/DP/TN motor intact EHL/FHL/TA/G pedal pulses intact comps soft NT Assessment and Plan (1) Primary osteoarthritis of right hip Assessment & Plan: POD #14 s/p R GAIL doing well -Wet to dry betadine dressings changed, will continue until drainage stops -hold lovenox -consult ID for wound drainage, Dr. Andrade recommends IV abx x 3 weeks -hold PT, patient is to be OOB -orthopedically stable -above d/w Dr. Andrade/Niki in agreement Status: Acute
--- NOTE | 2018-04-08 09:38 | CP.PCM.PN ---
Subjective - Date & Time of Evaluation Date of Evaluation: 04/08/18 Time of Evaluation: 09:00 - Subjective Subjective: NO CHEST PAIN OR SOB ONLY COMPLAINT IS PAIN AT SURGICAL SITE Objective - Vital Signs/Intake and Output Vital Signs (last 24 hours): Temp Pulse Resp BP Pulse Ox 98.1 F 70 20 113/69 100 04/08/18 09:13 04/08/18 09:13 04/08/18 09:13 04/08/18 09:13 04/08/18 09:13 - Medications Medications: Current Medications Acetaminophen (Tylenol 325mg Tab) 650 mg PO Q6 PRN PRN Reason: Pain, Mild (1-3) Cholecalciferol (Vitamin D) 2,000 intlu PO DAILY [facility] Last Admin: 04/08/18 08:11 Dose: 2,000 intlu Famotidine (Pepcid) 20 mg PO DAILY@2100 [facility] Last Admin: 04/07/18 21:16 Dose: 20 mg Ferrous Sulfate (Feosol) 325 mg PO TID [facility] Last Admin: 04/08/18 08:09 Dose: 325 mg Cefazolin Sodium/Dextrose (Ancef Iv 1 Gm Duplex) 1 gm in 50 mls @ 50 mls/hr IVPB Q8@0500,1300,2100 [facility] PRN Reason: Protocol Last Admin: 04/08/18 05:31 Dose: 50 mls/hr Magnesium Hydroxide (Milk Of Magnesia) 30 ml PO DAILY PRN PRN Reason: Constipation Last Admin: 04/07/18 21:16 Dose: 30 ml Nadolol (Corgard) 20 mg PO DAILY [facility] Last Admin: 04/08/18 08:10 Dose: 20 mg Nystatin (Nystatin Oral Susp) 5 ml PO TID [facility] Last Admin: 04/08/18 08:10 Dose: 5 ml Ondansetron HCl (Zofran Odt) 4 mg PO Q8H PRN PRN Reason: Nausea/Vomiting Last Admin: 04/02/18 21:04 Dose: 4 mg Oxycodone/Acetaminophen (Percocet 5/325 Mg Tab) 1 tab PO Q4 PRN PRN Reason: Pain, moderate (4-7) Stop: 04/10/18 17:49 Last Admin: 04/08/18 05:35 Dose: 1 tab Oxycodone/Acetaminophen (Percocet 5/325 Mg Tab) 2 tab PO Q4 PRN PRN Reason: Pain, severe (8-10) Stop: 04/10/18 21:14 Last Admin: 04/08/18 08:16 Dose: 2 tab Senna/Docusate Sodium (Senokot S 50 Mg-8.6 Mg) 2 tab PO HS [facility] Last Admin: 04/07/18 21:16 Dose: 2 tab Sucralfate (Carafate Tab) 1 gm PO TID@0630,1130,1630 [facility] Last Admin: 04/08/18 05:32 Dose: 1 gm - Labs Labs: 04/07/18 11:10 04/07/18 11:10 - Respiratory Exam Respiratory Exam: Clear to Ausculation Bilateral - Cardiovascular Exam Cardiovascular Exam: REGULAR RHYTHM, +S1, +S2 - Additional Findings Additional findings: ORTHOPEDICS NURSE PA NOTES REVIEWED Assessment and Plan - Assessment and Plan (Free Text) Assessment: RIGHT TOTAL HIP REPLACEMENT HYPERTENSION Plan: CONTINUE CORGARD ID TO EVALUATE
--- NOTE | 2018-04-08 18:11 | CP.PCM.PN ---
Subjective - Date & Time of Evaluation Date of Evaluation: 04/08/18 Time of Evaluation: 18:09 - Subjective Subjective: I D NOTE PATIENT EXAMINED ,EMR REVIEWED WILL NEED AT LEAST 4 WEEKS IV ANTIBIOTICS VANCOMYCIN/ERTAPENEM Objective - Vital Signs/Intake and Output Vital Signs (last 24 hours): Temp Pulse Resp BP Pulse Ox 98.1 F 69 20 125/55 L 100 04/08/18 15:47 04/08/18 15:47 04/08/18 15:47 04/08/18 15:47 04/08/18 15:47 - Medications Medications: Current Medications Acetaminophen (Tylenol 325mg Tab) 650 mg PO Q6 PRN PRN Reason: Pain, Mild (1-3) Cholecalciferol (Vitamin D) 2,000 intlu PO DAILY [facility] Last Admin: 04/08/18 08:11 Dose: 2,000 intlu Famotidine (Pepcid) 20 mg PO DAILY@2100 [facility] Last Admin: 04/07/18 21:16 Dose: 20 mg Ferrous Sulfate (Feosol) 325 mg PO TID [facility] Last Admin: 04/08/18 16:37 Dose: 325 mg Vancomycin HCl 1 gm/ Sodium (Chloride) 250 mls @ 166.667 mls/hr IVPB Q12 [facility] PRN Reason: Protocol Ertapenem 1 gm/ Sodium (Chloride) 100 mls @ 100 mls/hr IVPB DAILY [facility] PRN Reason: Protocol Magnesium Hydroxide (Milk Of Magnesia) 30 ml PO DAILY PRN PRN Reason: Constipation Last Admin: 04/07/18 21:16 Dose: 30 ml Nadolol (Corgard) 20 mg PO DAILY [facility] Last Admin: 04/08/18 08:10 Dose: 20 mg Nystatin (Nystatin Oral Susp) 5 ml PO TID [facility] Last Admin: 04/08/18 16:37 Dose: 5 ml Ondansetron HCl (Zofran Odt) 4 mg PO Q8H PRN PRN Reason: Nausea/Vomiting Last Admin: 04/08/18 13:46 Dose: 4 mg Oxycodone/Acetaminophen (Percocet 5/325 Mg Tab) 1 tab PO Q4 PRN PRN Reason: Pain, moderate (4-7) Stop: 04/10/18 17:49 Last Admin: 04/08/18 05:35 Dose: 1 tab Oxycodone/Acetaminophen (Percocet 5/325 Mg Tab) 2 tab PO Q4 PRN PRN Reason: Pain, severe (8-10) Stop: 04/10/18 21:14 Last Admin: 04/08/18 13:45 Dose: 2 tab Senna/Docusate Sodium (Senokot S 50 Mg-8.6 Mg) 2 tab PO HS [facility] Last Admin: 04/07/18 21:16 Dose: 2 tab Sucralfate (Carafate Tab) 1 gm PO TID@0630,1130,1630 [facility] Last Admin: 04/08/18 16:36 Dose: 1 gm - Labs Labs: 04/07/18 11:10 04/07/18 11:10
--- NOTE | 2018-04-08 19:55 | CP.PCM.PN ---
Subjective - Date & Time of Evaluation Date of Evaluation: 04/08/18 Time of Evaluation: 14:15 - Subjective Subjective: Patient seen and examined. Wound on right hip still slightly oozing. Objective - Vital Signs/Intake and Output Vital Signs (last 24 hours): Temp Pulse Resp BP Pulse Ox 98.1 F 69 20 125/55 L 100 04/08/18 15:47 04/08/18 15:47 04/08/18 15:47 04/08/18 15:47 04/08/18 15:47 - Medications Medications: Current Medications Acetaminophen (Tylenol 325mg Tab) 650 mg PO Q6 PRN PRN Reason: Pain, Mild (1-3) Cholecalciferol (Vitamin D) 2,000 intlu PO DAILY [facility] Last Admin: 04/08/18 08:11 Dose: 2,000 intlu Famotidine (Pepcid) 20 mg PO DAILY@2100 [facility] Last Admin: 04/07/18 21:16 Dose: 20 mg Ferrous Sulfate (Feosol) 325 mg PO TID [facility] Last Admin: 04/08/18 16:37 Dose: 325 mg Vancomycin HCl 1 gm/ Sodium (Chloride) 250 mls @ 166.667 mls/hr IVPB Q12 [facility] PRN Reason: Protocol Ertapenem 1 gm/ Sodium (Chloride) 100 mls @ 100 mls/hr IVPB DAILY [facility] PRN Reason: Protocol Magnesium Hydroxide (Milk Of Magnesia) 30 ml PO DAILY PRN PRN Reason: Constipation Last Admin: 04/07/18 21:16 Dose: 30 ml Nadolol (Corgard) 20 mg PO DAILY [facility] Last Admin: 04/08/18 08:10 Dose: 20 mg Nystatin (Nystatin Oral Susp) 5 ml PO TID [facility] Last Admin: 04/08/18 16:37 Dose: 5 ml Ondansetron HCl (Zofran Odt) 4 mg PO Q8H PRN PRN Reason: Nausea/Vomiting Last Admin: 04/08/18 13:46 Dose: 4 mg Oxycodone/Acetaminophen (Percocet 5/325 Mg Tab) 1 tab PO Q4 PRN PRN Reason: Pain, moderate (4-7) Stop: 04/10/18 17:49 Last Admin: 04/08/18 05:35 Dose: 1 tab Oxycodone/Acetaminophen (Percocet 5/325 Mg Tab) 2 tab PO Q4 PRN PRN Reason: Pain, severe (8-10) Stop: 04/10/18 21:14 Last Admin: 04/08/18 13:45 Dose: 2 tab Senna/Docusate Sodium (Senokot S 50 Mg-8.6 Mg) 2 tab PO HS [facility] Last Admin: 04/07/18 21:16 Dose: 2 tab Sucralfate (Carafate Tab) 1 gm PO TID@0630,1130,1630 [facility] Last Admin: 04/08/18 16:36 Dose: 1 gm - Labs Labs: 04/07/18 11:10 04/07/18 11:10 - Constitutional Appears: No Acute Distress - Head Exam Head Exam: ATRAUMATIC - Eye Exam Eye Exam: absent: Scleral icterus - ENT Exam ENT Exam: Mucous Membranes Moist - Neck Exam Neck Exam: absent: Meningismus - Respiratory Exam Respiratory Exam: absent: Rales, Rhonchi, Wheezes, Respiratory Distress - Cardiovascular Exam Cardiovascular Exam: REGULAR RHYTHM, +S1, +S2 - GI/Abdominal Exam GI & Abdominal Exam: Soft. absent: Tenderness - Rectal Exam Rectal Exam: Deferred - Extremities Exam Extremities Exam: absent: Full ROM (limited ROM on right hip) - Neurological Exam Neurological Exam: Alert, Oriented x3 - Psychiatric Exam Psychiatric exam: Normal Affect - Skin Skin Exam: Dry, Intact Assessment and Plan - Assessment and Plan (Free Text) Assessment: 72 yo female with history of HTN and AFib had right THR on 03/25/18 after failing conservative management of chronic pain on the right hip. 1. Post Right THR POD # 14 wound on right hip post surgery continue to ooze serous fluid ID consult with Dr Mendez started on IV Ertapenem and Vancomycin follow up Procalcitonin level 2. Paroxysmal A Fib rate controlled presently in sinus rhythm continue Nadolol 20mg PO daily 3. Hypertension BP controlled on Nadolol 4. Oral Trush Mycostatin susp 5 cc swish and swallow TID 5. DVT prophylaxis Lovenox 40mg SC daily
[2018-04-08] MEDS: Docusate-Senna 50 mg-8.6 mg Tab PO SCH (22:06)
[2018-04-09] MEDS: Oxycodone/Acetaminophen 5/325 mg Tab PO PRN ×4 (04:45→21:29)
--- NOTE | 2018-04-09 08:17 | CP.PCM.PN ---
Subjective - Date & Time of Evaluation Date of Evaluation: 04/09/18 Time of Evaluation: 07:45 - Subjective Subjective: Patient seen and examined at bedside. Pain well controlled. No new complaints. Objective - Vital Signs/Intake and Output Vital Signs (last 24 hours): Temp Pulse Resp BP Pulse Ox 98.2 F 74 20 115/56 L 100 04/08/18 20:00 04/08/18 20:00 04/08/18 20:00 04/08/18 20:00 04/08/18 20:00 - Medications Medications: Current Medications Acetaminophen (Tylenol 325mg Tab) 650 mg PO Q6 PRN PRN Reason: Pain, Mild (1-3) Cholecalciferol (Vitamin D) 2,000 intlu PO DAILY [facility] Last Admin: 04/08/18 08:11 Dose: 2,000 intlu Famotidine (Pepcid) 20 mg PO DAILY@2100 [facility] Last Admin: 04/08/18 21:00 Dose: 20 mg Ferrous Sulfate (Feosol) 325 mg PO TID [facility] Last Admin: 04/08/18 16:37 Dose: 325 mg Ertapenem 1 gm/ Sodium (Chloride) 100 mls @ 100 mls/hr IVPB DAILY@2100 [facility] PRN Reason: Protocol Last Admin: 04/08/18 22:06 Dose: 100 mls/hr Vancomycin HCl 1 gm/ Sodium (Chloride) 250 mls @ 166.667 mls/hr IVPB Q12@0000, 1200 [facility] PRN Reason: Protocol Last Admin: 04/08/18 23:37 Dose: 166.667 mls/hr Magnesium Hydroxide (Milk Of Magnesia) 30 ml PO DAILY PRN PRN Reason: Constipation Last Admin: 04/07/18 21:16 Dose: 30 ml Nadolol (Corgard) 20 mg PO DAILY [facility] Last Admin: 04/08/18 08:10 Dose: 20 mg Nystatin (Nystatin Oral Susp) 5 ml PO TID [facility] Last Admin: 04/08/18 16:37 Dose: 5 ml Ondansetron HCl (Zofran Odt) 4 mg PO Q8H PRN PRN Reason: Nausea/Vomiting Last Admin: 04/08/18 13:46 Dose: 4 mg Oxycodone/Acetaminophen (Percocet 5/325 Mg Tab) 1 tab PO Q4 PRN PRN Reason: Pain, moderate (4-7) Stop: 04/10/18 17:49 Last Admin: 04/08/18 05:35 Dose: 1 tab Oxycodone/Acetaminophen (Percocet 5/325 Mg Tab) 2 tab PO Q4 PRN PRN Reason: Pain, severe (8-10) Stop: 04/10/18 21:14 Last Admin: 04/09/18 04:45 Dose: 2 tab Senna/Docusate Sodium (Senokot S 50 Mg-8.6 Mg) 2 tab PO HS [facility] Last Admin: 04/08/18 22:06 Dose: 2 tab Sucralfate (Carafate Tab) 1 gm PO TID@0630,1130,1630 [facility] Last Admin: 04/09/18 06:29 Dose: Not Given - Labs Labs: 04/07/18 11:10 04/07/18 11:10 - Extremities Exam Additional comments: R hip: Wet to dry Betadine dressings intact, mild serous drainage on dressings, wound intact with no serous drainage from mid wound sensation intact SP/DP/TN motor intact EHL/FHL/TA/G pedal pulses intact comps soft NT Assessment and Plan (1) Primary osteoarthritis of right hip Assessment & Plan: POD #15 s/p R GAIL doing well -Wet to dry betadine dressings changed, will continue until drainage stops -hold lovenox -abx as per ID -hold PT, patient is to be OOB -orthopedically stable -above d/w Dr. Andrade/Niki in agreement Status: Acute
[2018-04-09] MEDS: Nystatin 100,000 Units/ml Oral Susp 5 ml UD PO SCH ×3 (09:20→18:08)
[2018-04-09] MEDS: Cholecalciferol 1,000 INTLU TAB PO SCH (09:20)
--- NOTE | 2018-04-09 11:42 | CP.PCM.PN ---
Subjective - Date & Time of Evaluation Date of Evaluation: 04/09/18 Time of Evaluation: 10:00 - Subjective Subjective: NO CHEST PAIN OR SOB RIGHT HIP PAIN IS IMPROVING Objective - Vital Signs/Intake and Output Vital Signs (last 24 hours): Temp Pulse Resp BP Pulse Ox 98.1 F 62 20 112/58 L 99 04/09/18 08:23 04/09/18 09:19 04/09/18 08:23 04/09/18 09:19 04/09/18 08:23 - Medications Medications: Current Medications Acetaminophen (Tylenol 325mg Tab) 650 mg PO Q6 PRN PRN Reason: Pain, Mild (1-3) Cholecalciferol (Vitamin D) 2,000 intlu PO DAILY [facility] Last Admin: 04/09/18 09:20 Dose: 2,000 intlu Famotidine (Pepcid) 20 mg PO DAILY@2100 [facility] Last Admin: 04/08/18 21:00 Dose: 20 mg Ferrous Sulfate (Feosol) 325 mg PO TID [facility] Last Admin: 04/09/18 09:20 Dose: 325 mg Ertapenem 1 gm/ Sodium (Chloride) 100 mls @ 100 mls/hr IVPB DAILY@2100 [facility] PRN Reason: Protocol Last Admin: 04/08/18 22:06 Dose: 100 mls/hr Vancomycin HCl 1 gm/ Sodium (Chloride) 250 mls @ 166.667 mls/hr IVPB Q12@0000, 1200 [facility] PRN Reason: Protocol Last Admin: 04/08/18 23:37 Dose: 166.667 mls/hr Magnesium Hydroxide (Milk Of Magnesia) 30 ml PO DAILY PRN PRN Reason: Constipation Last Admin: 04/07/18 21:16 Dose: 30 ml Nadolol (Corgard) 20 mg PO DAILY [facility] Last Admin: 04/09/18 09:19 Dose: 20 mg Nystatin (Nystatin Oral Susp) 5 ml PO TID [facility] Last Admin: 04/09/18 09:20 Dose: 5 ml Ondansetron HCl (Zofran Odt) 4 mg PO Q8H PRN PRN Reason: Nausea/Vomiting Last Admin: 04/08/18 13:46 Dose: 4 mg Oxycodone/Acetaminophen (Percocet 5/325 Mg Tab) 1 tab PO Q4 PRN PRN Reason: Pain, moderate (4-7) Stop: 08/09/18 17:49 Last Admin: 04/09/18 09:24 Dose: 1 tab Oxycodone/Acetaminophen (Percocet 5/325 Mg Tab) 2 tab PO Q4 PRN PRN Reason: Pain, severe (8-10) Stop: 04/10/18 21:14 Last Admin: 04/09/18 04:45 Dose: 2 tab Senna/Docusate Sodium (Senokot S 50 Mg-8.6 Mg) 2 tab PO HS [facility] Last Admin: 04/08/18 22:06 Dose: 2 tab Sucralfate (Carafate Tab) 1 gm PO TID@0630,1130,1630 [facility] Last Admin: 04/09/18 06:29 Dose: Not Given - Labs Labs: 04/07/18 11:10 04/07/18 11:10 - Respiratory Exam Respiratory Exam: Clear to Ausculation Bilateral - Cardiovascular Exam Cardiovascular Exam: REGULAR RHYTHM, +S1, +S2 - Additional Findings Additional findings: ID NOTE FROM YESTERDAY REVIEWED AND DR GRAY IS RECOMMENDING 4 WEEKS OF IV ANTIBIOTICS Assessment and Plan - Assessment and Plan (Free Text) Assessment: S/P RIGHT HIP REPLACEMENT WITH DRAINAGE HYPERTENSION Plan: THE PICC LINE WAS INSERTED YESTERDAY CONTINUE CORGARD AND ANTIBIOTICS
[2018-04-09] MEDS: Docusate-Senna 50 mg-8.6 mg Tab PO SCH (21:36)
[2018-04-10] MEDS: Oxycodone/Acetaminophen 5/325 mg Tab PO PRN ×5 (01:04→22:21)
--- NOTE | 2018-04-10 09:00 | CP.PCM.PN ---
Subjective - Date & Time of Evaluation Date of Evaluation: 04/10/18 Time of Evaluation: 08:30 - Subjective Subjective: NO CHEST PAIN OR SOB FEELS GOOD Objective - Vital Signs/Intake and Output Vital Signs (last 24 hours): Temp Pulse Resp BP Pulse Ox 97.9 F 60 20 117/58 L 100 04/10/18 08:13 04/10/18 08:13 04/10/18 08:13 04/10/18 08:13 04/10/18 08:13 - Medications Medications: Current Medications Acetaminophen (Tylenol 325mg Tab) 650 mg PO Q6 PRN PRN Reason: Pain, Mild (1-3) Cholecalciferol (Vitamin D) 2,000 intlu PO DAILY [facility] Last Admin: 04/09/18 09:20 Dose: 2,000 intlu Famotidine (Pepcid) 20 mg PO DAILY@2100 [facility] Last Admin: 04/09/18 21:30 Dose: 20 mg Ferrous Sulfate (Feosol) 325 mg PO TID [facility] Last Admin: 04/09/18 18:07 Dose: Not Given Ertapenem 1 gm/ Sodium (Chloride) 100 mls @ 100 mls/hr IVPB DAILY@2100 [facility] PRN Reason: Protocol Last Admin: 04/09/18 21:19 Dose: 100 mls/hr Vancomycin HCl 1 gm/ Sodium (Chloride) 250 mls @ 166.667 mls/hr IVPB Q12@0500, 1700 [facility] PRN Reason: Protocol Last Admin: 04/10/18 05:12 Dose: 166.667 mls/hr Magnesium Hydroxide (Milk Of Magnesia) 30 ml PO DAILY PRN PRN Reason: Constipation Last Admin: 04/07/18 21:16 Dose: 30 ml Nadolol (Corgard) 20 mg PO DAILY [facility] Last Admin: 04/09/18 09:19 Dose: 20 mg Nystatin (Nystatin Oral Susp) 5 ml PO TID [facility] Last Admin: 04/09/18 18:08 Dose: Not Given Ondansetron HCl (Zofran Odt) 4 mg PO Q8H PRN PRN Reason: Nausea/Vomiting Last Admin: 04/09/18 17:36 Dose: 4 mg Oxycodone/Acetaminophen (Percocet 5/325 Mg Tab) 1 tab PO Q4 PRN PRN Reason: Pain, moderate (4-7) Stop: 08/09/18 17:49 Last Admin: 04/10/18 05:16 Dose: 1 tab Oxycodone/Acetaminophen (Percocet 5/325 Mg Tab) 2 tab PO Q4 PRN PRN Reason: Pain, severe (8-10) Stop: 04/10/18 21:14 Last Admin: 04/10/18 01:04 Dose: 2 tab Senna/Docusate Sodium (Senokot S 50 Mg-8.6 Mg) 2 tab PO HS [facility] Last Admin: 04/09/18 21:36 Dose: 2 tab Sucralfate (Carafate Tab) 1 gm PO TID@0630,1130,1630 [facility] Last Admin: 04/10/18 07:12 Dose: 1 gm - Labs Labs: 04/07/18 11:10 04/07/18 11:10 - Respiratory Exam Respiratory Exam: Clear to Ausculation Bilateral - Cardiovascular Exam Cardiovascular Exam: REGULAR RHYTHM, +S1, +S2 - Extremities Exam Additional comments: MILD SWELLING OF RLE Assessment and Plan - Assessment and Plan (Free Text) Assessment: RIGHT THR WITH DRAINAGE HYPERTENSION Plan: CONTINUE CORGARD AND IV ANTIBIOTICS
[2018-04-10] MEDS: Nystatin 100,000 Units/ml Oral Susp 5 ml UD PO SCH ×3 (09:15→17:47)
[2018-04-10] MEDS: Cholecalciferol 1,000 INTLU TAB PO SCH (09:15)
--- NOTE | 2018-04-10 10:11 | CP.PCM.PN ---
Subjective - Date & Time of Evaluation Date of Evaluation: 04/10/18 Time of Evaluation: 07:30 - Subjective Subjective: Patient seen and examined at bedside comfortable. Pain improved today. PT held yesterday. No new complaints. Objective - Vital Signs/Intake and Output Vital Signs (last 24 hours): Temp Pulse Resp BP Pulse Ox 97.9 F 60 20 117/58 L 100 04/10/18 08:13 04/10/18 09:15 04/10/18 08:13 04/10/18 09:15 04/10/18 08:13 - Medications Medications: Current Medications Acetaminophen (Tylenol 325mg Tab) 650 mg PO Q6 PRN PRN Reason: Pain, Mild (1-3) Cholecalciferol (Vitamin D) 2,000 intlu PO DAILY [facility] Last Admin: 04/10/18 09:15 Dose: 2,000 intlu Famotidine (Pepcid) 20 mg PO DAILY@2100 [facility] Last Admin: 04/09/18 21:30 Dose: 20 mg Ferrous Sulfate (Feosol) 325 mg PO TID [facility] Last Admin: 04/10/18 09:15 Dose: 325 mg Ertapenem 1 gm/ Sodium (Chloride) 100 mls @ 100 mls/hr IVPB DAILY@2100 [facility] PRN Reason: Protocol Last Admin: 04/09/18 21:19 Dose: 100 mls/hr Vancomycin HCl 1 gm/ Sodium (Chloride) 250 mls @ 166.667 mls/hr IVPB Q12@0500, 1700 [facility] PRN Reason: Protocol Last Admin: 04/10/18 05:12 Dose: 166.667 mls/hr Magnesium Hydroxide (Milk Of Magnesia) 30 ml PO DAILY PRN PRN Reason: Constipation Last Admin: 04/07/18 21:16 Dose: 30 ml Nadolol (Corgard) 20 mg PO DAILY [facility] Last Admin: 04/10/18 09:15 Dose: 20 mg Nystatin (Nystatin Oral Susp) 5 ml PO TID [facility] Last Admin: 04/10/18 09:15 Dose: 5 ml Ondansetron HCl (Zofran Odt) 4 mg PO Q8H PRN PRN Reason: Nausea/Vomiting Last Admin: 04/09/18 17:36 Dose: 4 mg Oxycodone/Acetaminophen (Percocet 5/325 Mg Tab) 1 tab PO Q4 PRN PRN Reason: Pain, moderate (4-7) Stop: 04/10/18 17:49 Last Admin: 04/10/18 05:16 Dose: 1 tab Oxycodone/Acetaminophen (Percocet 5/325 Mg Tab) 2 tab PO Q4 PRN PRN Reason: Pain, severe (8-10) Stop: 04/10/18 21:14 Last Admin: 04/10/18 09:22 Dose: 2 tab Senna/Docusate Sodium (Senokot S 50 Mg-8.6 Mg) 2 tab PO HS [facility] Last Admin: 04/09/18 21:36 Dose: 2 tab Sucralfate (Carafate Tab) 1 gm PO TID@0630,1130,1630 [facility] Last Admin: 04/10/18 07:12 Dose: 1 gm - Labs Labs: 04/07/18 11:10 04/07/18 11:10 - Extremities Exam Additional comments: R hip: Wet to dry Betadine dressings intact, minimal serous drainage on dressings, wound intact with no serous drainage from mid wound sensation intact SP/DP/TN motor intact EHL/FHL/TA/G pedal pulses intact comps soft NT Assessment and Plan (1) Primary osteoarthritis of right hip Assessment & Plan: POD #16 s/p R GAIL doing well -Wet to dry betadine dressings changed, will continue -hold lovenox -abx as per ID -Restart PT -orthopedically stable -plan for d/c tomorrow -above d/w Dr. Andrade in agreement Status: Acute
--- NOTE | 2018-04-10 14:23 | CP.PCM.PN ---
Subjective - Date & Time of Evaluation Date of Evaluation: 04/10/18 Time of Evaluation: 12:00 - Subjective Subjective: Patient seen and examined. Complained of soreness and swelling of right lower extremity. Objective - Vital Signs/Intake and Output Vital Signs (last 24 hours): Temp Pulse Resp BP Pulse Ox 97.9 F 60 20 117/58 L 100 04/10/18 08:13 04/10/18 09:15 04/10/18 08:13 04/10/18 09:15 04/10/18 08:13 - Medications Medications: Current Medications Acetaminophen (Tylenol 325mg Tab) 650 mg PO Q6 PRN PRN Reason: Pain, Mild (1-3) Cholecalciferol (Vitamin D) 2,000 intlu PO DAILY [facility] Last Admin: 04/10/18 09:15 Dose: 2,000 intlu Famotidine (Pepcid) 20 mg PO DAILY@2100 [facility] Last Admin: 04/09/18 21:30 Dose: 20 mg Ferrous Sulfate (Feosol) 325 mg PO TID [facility] Last Admin: 04/10/18 09:15 Dose: 325 mg Ertapenem 1 gm/ Sodium (Chloride) 100 mls @ 100 mls/hr IVPB DAILY@2100 [facility] PRN Reason: Protocol Last Admin: 04/09/18 21:19 Dose: 100 mls/hr Vancomycin HCl 1 gm/ Sodium (Chloride) 250 mls @ 166.667 mls/hr IVPB Q12@0500, 1700 [facility] PRN Reason: Protocol Last Admin: 04/10/18 05:12 Dose: 166.667 mls/hr Magnesium Hydroxide (Milk Of Magnesia) 30 ml PO DAILY PRN PRN Reason: Constipation Last Admin: 04/07/18 21:16 Dose: 30 ml Nadolol (Corgard) 20 mg PO DAILY [facility] Last Admin: 04/10/18 09:15 Dose: 20 mg Nystatin (Nystatin Oral Susp) 5 ml PO TID [facility] Last Admin: 04/10/18 09:15 Dose: 5 ml Oxycodone/Acetaminophen (Percocet 5/325 Mg Tab) 1 tab PO Q4 PRN PRN Reason: Pain, moderate (4-7) Stop: 04/10/18 17:49 Last Admin: 04/10/18 05:16 Dose: 1 tab Oxycodone/Acetaminophen (Percocet 5/325 Mg Tab) 2 tab PO Q4 PRN PRN Reason: Pain, severe (8-10) Stop: 04/10/18 21:14 Last Admin: 04/10/18 09:22 Dose: 2 tab Senna/Docusate Sodium (Senokot S 50 Mg-8.6 Mg) 2 tab PO HS [facility] Last Admin: 04/09/18 21:36 Dose: 2 tab Sucralfate (Carafate Tab) 1 gm PO TID@0630,1130,1630 [facility] Last Admin: 04/10/18 12:12 Dose: 1 gm - Labs Labs: 04/07/18 11:10 04/07/18 11:10 - Constitutional Appears: No Acute Distress - Head Exam Head Exam: ATRAUMATIC - Eye Exam Eye Exam: absent: Scleral icterus - ENT Exam ENT Exam: Mucous Membranes Moist - Neck Exam Neck Exam: absent: Meningismus - Respiratory Exam Respiratory Exam: absent: Rales, Rhonchi, Wheezes, Respiratory Distress - Cardiovascular Exam Cardiovascular Exam: REGULAR RHYTHM, +S1, +S2 - GI/Abdominal Exam GI & Abdominal Exam: Soft. absent: Tenderness - Rectal Exam Rectal Exam: Deferred - Extremities Exam Extremities Exam: absent: Full ROM (limited ROM on right hip with swelling on the distal limb) - Neurological Exam Neurological Exam: Alert, Oriented x3 - Psychiatric Exam Psychiatric exam: Normal Affect - Skin Skin Exam: absent: Dry (dressing on right hip with minimal discharge) Assessment and Plan - Assessment and Plan (Free Text) Assessment: 72 yo female with history of HTN and AFib had right THR on 03/25/18 after failing conservative management of chronic pain on the right hip. 1. Post Right THR POD # 16 wound on right hip post surgery with minimal oozing on the dressing ID consult with Dr Mendez on IV Ertapenem and Vancomycin Procalcitonin level: <0.5 right leg swelling secondary to diminished venous return caused by right hip surgery and congestion venous doppler on 04/03/18 was negative for DVT 2. Paroxysmal A Fib rate controlled presently in sinus rhythm continue Nadolol 20mg PO daily 3. Hypertension BP controlled on Nadolol 4. Oral Trush Mycostatin susp 5 cc swish and swallow TID 5. DVT prophylaxis on hold because of wound drainage at surgical site will defer to orthopedist regarding prophylaxis
[2018-04-10 15:38] LABS: BASO # 0.1 K/uL (0.0-0.2); BASO % 1.1 % (0.0-2.0); EOS # 0.3 K/uL (0.0-0.7); EOS % 4.2 % (0.0-4.0); HEMOGLOBIN 8.4 g/dL (12.0-16.0); LYMPH # 0.9 K/uL (1.0-4.3); LYMPH % 14.7 % (20.0-40.0); MEAN CELL VOLUME 88.9 fl (81.0-99.0); MEAN CORPUSCULAR HEMOGLOBIN 29.5 pg (27.0-31.0); MEAN CORPUSCULAR HGB CONC 33.1 g/dL (33.0-37.0); MEAN PLATELET VOLUME 8.2 fl (7.2-11.7); MONO # 0.6 K/uL (0.0-0.8); MONO % 9.2 % (0.0-10.0); NEUT # 4.4 K/uL (1.8-7.0); NEUT % 70.8 % (50.0-75.0); RBC 2.87 Mil/uL (3.80-5.20); RED CELL DISTRIBUTION WIDTH 15.8 % (11.5-14.5); WHITE BLOOD COUNT 6.2 K/uL (4.8-10.8)
[2018-04-10 16:06] LABS: BLOOD UREA NITROGEN 10 mg/dl (7-17); CALCIUM 9.1 mg/dL (8.4-10.2); GFR AFRICAN-AMERICAN > 60; GFR NON-AFRICAN AMERICAN > 60
[2018-04-10] MEDS: Docusate-Senna 50 mg-8.6 mg Tab PO SCH (21:00)
[2018-04-11] MEDS: Nystatin 100,000 Units/ml Oral Susp 5 ml UD PO SCH ×3 (09:33→17:27)
[2018-04-11] MEDS: Cholecalciferol 1,000 INTLU TAB PO SCH (09:33)
--- NOTE | 2018-04-11 10:33 | CP.PCM.PN ---
Subjective - Date & Time of Evaluation Date of Evaluation: 04/11/18 Time of Evaluation: 08:30 - Subjective Subjective: NO NEW COMPLAINTS Objective - Vital Signs/Intake and Output Vital Signs (last 24 hours): Temp Pulse Resp BP Pulse Ox 98.1 F 64 20 136/72 100 04/11/18 08:46 04/11/18 09:31 04/11/18 08:46 04/11/18 09:31 04/11/18 08:46 - Medications Medications: Current Medications Acetaminophen (Tylenol 325mg Tab) 650 mg PO Q6 PRN PRN Reason: Pain, Mild (1-3) Aspirin (Ecotrin) 81 mg PO BID [facility] Last Admin: 04/11/18 09:32 Dose: 81 mg Cholecalciferol (Vitamin D) 2,000 intlu PO DAILY [facility] Last Admin: 04/11/18 09:33 Dose: 2,000 intlu Famotidine (Pepcid) 20 mg PO DAILY@2100 [facility] Last Admin: 04/10/18 21:01 Dose: 20 mg Ferrous Sulfate (Feosol) 325 mg PO TID [facility] Last Admin: 04/11/18 09:32 Dose: 325 mg Ertapenem 1 gm/ Sodium (Chloride) 100 mls @ 100 mls/hr IVPB DAILY@2100 [facility] PRN Reason: Protocol Last Admin: 04/10/18 20:59 Dose: 100 mls/hr Vancomycin HCl 1 gm/ Sodium (Chloride) 250 mls @ 166.667 mls/hr IVPB Q12@0500, 1700 [facility] PRN Reason: Protocol Last Admin: 04/11/18 05:31 Dose: 166.667 mls/hr Magnesium Hydroxide (Milk Of Magnesia) 30 ml PO DAILY PRN PRN Reason: Constipation Last Admin: 04/07/18 21:16 Dose: 30 ml Nadolol (Corgard) 20 mg PO DAILY [facility] Last Admin: 04/11/18 09:31 Dose: 20 mg Nystatin (Nystatin Oral Susp) 5 ml PO TID [facility] Last Admin: 04/11/18 09:33 Dose: 5 ml Ondansetron HCl (Zofran Odt) 4 mg PO Q8H PRN PRN Reason: Nausea/Vomiting Last Admin: 04/10/18 14:47 Dose: 4 mg Oxycodone/Acetaminophen (Percocet 5/325 Mg Tab) 2 tab PO Q4 PRN PRN Reason: Pain, severe (8-10) Stop: 04/13/18 21:20 Last Admin: 04/10/18 22:21 Dose: 2 tab Oxycodone/Acetaminophen (Percocet 5/325 Mg Tab) 1 tab PO Q4 PRN PRN Reason: Pain, moderate (4-7) Stop: 04/13/18 21:21 Senna/Docusate Sodium (Senokot S 50 Mg-8.6 Mg) 2 tab PO [facility] Last Admin: 04/10/18 21:00 Dose: 2 tab Sucralfate (Carafate Tab) 1 gm PO TID@0630,1130,1630 [facility] Last Admin: 04/11/18 05:33 Dose: 1 gm - Labs Labs: 04/10/18 14:55 04/10/18 14:55 - Respiratory Exam Respiratory Exam: Clear to Ausculation Bilateral - Cardiovascular Exam Cardiovascular Exam: REGULAR RHYTHM, +S1, +S2 Assessment and Plan - Assessment and Plan (Free Text) Assessment: S/P RIGHT THR HYPERTENSION Plan: CONTINUE CORGARD AND IV ANTIBIOTICS FOR DISCHARGE TO HOME
[2018-04-11] MEDS: Oxycodone/Acetaminophen 5/325 mg Tab PO PRN ×2 (11:14→21:01)
--- NOTE | 2018-04-11 14:20 | CP.PCM.PN ---
Subjective - Date & Time of Evaluation Date of Evaluation: 04/11/18 Time of Evaluation: 13:30 - Subjective Subjective: Patient seen and examined at bedside comfortable. Pain is controlled. She experiences more soreness following PT which is typical. She notes more serous drainage yesterday since she has restarted PT. She also reports swelling to both LE, greater on operative side. Objective - Vital Signs/Intake and Output Vital Signs (last 24 hours): Temp Pulse Resp BP Pulse Ox 98.1 F 64 20 136/72 100 04/11/18 08:46 04/11/18 09:31 04/11/18 08:46 04/11/18 09:31 04/11/18 08:46 - Medications Medications: Current Medications Acetaminophen (Tylenol 325mg Tab) 650 mg PO Q6 PRN PRN Reason: Pain, Mild (1-3) Aspirin (Ecotrin) 81 mg PO BID [facility] Last Admin: 04/11/18 09:32 Dose: 81 mg Cholecalciferol (Vitamin D) 2,000 intlu PO DAILY [facility] Last Admin: 04/11/18 09:33 Dose: 2,000 intlu Famotidine (Pepcid) 20 mg PO DAILY@2100 [facility] Last Admin: 04/10/18 21:01 Dose: 20 mg Ferrous Sulfate (Feosol) 325 mg PO TID [facility] Last Admin: 04/11/18 13:23 Dose: 325 mg Ertapenem 1 gm/ Sodium (Chloride) 100 mls @ 100 mls/hr IVPB DAILY@2100 [facility] PRN Reason: Protocol Last Admin: 04/10/18 20:59 Dose: 100 mls/hr Vancomycin HCl 1 gm/ Sodium (Chloride) 250 mls @ 166.667 mls/hr IVPB Q12@0500, 1700 [facility] PRN Reason: Protocol Last Admin: 04/11/18 05:31 Dose: 166.667 mls/hr Magnesium Hydroxide (Milk Of Magnesia) 30 ml PO DAILY PRN PRN Reason: Constipation Last Admin: 04/07/18 21:16 Dose: 30 ml Nadolol (Corgard) 20 mg PO DAILY [facility] Last Admin: 04/11/18 09:31 Dose: 20 mg Nystatin (Nystatin Oral Susp) 5 ml PO TID [facility] Last Admin: 04/11/18 13:23 Dose: Not Given Ondansetron HCl (Zofran Odt) 4 mg PO Q8H PRN PRN Reason: Nausea/Vomiting Last Admin: 04/10/18 14:47 Dose: 4 mg Oxycodone/Acetaminophen (Percocet 5/325 Mg Tab) 2 tab PO Q4 PRN PRN Reason: Pain, severe (8-10) Stop: 04/13/18 21:20 Last Admin: 04/10/18 22:21 Dose: 2 tab Oxycodone/Acetaminophen (Percocet 5/325 Mg Tab) 1 tab PO Q4 PRN PRN Reason: Pain, moderate (4-7) Stop: 04/13/18 21:21 Last Admin: 04/11/18 11:14 Dose: 1 tab Senna/Docusate Sodium (Senokot S 50 Mg-8.6 Mg) 2 tab PO HS [facility] Last Admin: 04/10/18 21:00 Dose: 2 tab Sucralfate (Carafate Tab) 1 gm PO TID@0630,1130,1630 [facility] Last Admin: 04/11/18 11:15 Dose: 1 gm - Labs Labs: 04/10/18 14:55 04/10/18 14:55 - Extremities Exam Additional comments: R hip: Wet to dry Betadine dressings intact, no serous drainage on dressings which was changed last night, wound intact with no serous drainage from mid wound B/l edema R>L sensation intact SP/DP/TN motor intact EHL/FHL/TA/G pedal pulses intact comps soft soreness with palpation of calf Assessment and Plan (1) Primary osteoarthritis of right hip Assessment & Plan: POD #17 s/p R GAIL doing well -Wet to dry betadine dressings changed, will continue -ASA 81mg BID started yesterday -abx as per ID -PT/OT WBAT -B/L LE US showed normal study on 04/03 -above d/w Dr. Andrade in agreement Status: Acute
--- NOTE | 2018-04-11 14:33 | CP.PCM.PN ---
Subjective - Date & Time of Evaluation Date of Evaluation: 04/11/18 Time of Evaluation: 14:30 - Subjective Subjective: seen and examined patient for lower extremity pain. on exam patient was found to have profound R calf tenderness with increased edema. STAT lower extremity duplex ordered will follow up results today Objective - Vital Signs/Intake and Output Vital Signs (last 24 hours): Temp Pulse Resp BP Pulse Ox 98.1 F 64 20 136/72 100 04/11/18 08:46 04/11/18 09:31 04/11/18 08:46 04/11/18 09:31 04/11/18 08:46 - Medications Medications: Current Medications Acetaminophen (Tylenol 325mg Tab) 650 mg PO Q6 PRN PRN Reason: Pain, Mild (1-3) Aspirin (Ecotrin) 81 mg PO BID [facility] Last Admin: 04/11/18 09:32 Dose: 81 mg Cholecalciferol (Vitamin D) 2,000 intlu PO DAILY [facility] Last Admin: 04/11/18 09:33 Dose: 2,000 intlu Famotidine (Pepcid) 20 mg PO DAILY@2100 [facility] Last Admin: 04/10/18 21:01 Dose: 20 mg Ferrous Sulfate (Feosol) 325 mg PO TID [facility] Last Admin: 04/11/18 13:23 Dose: 325 mg Ertapenem 1 gm/ Sodium (Chloride) 100 mls @ 100 mls/hr IVPB DAILY@2100 [facility] PRN Reason: Protocol Last Admin: 04/10/18 20:59 Dose: 100 mls/hr Vancomycin HCl 1 gm/ Sodium (Chloride) 250 mls @ 166.667 mls/hr IVPB Q12@0500, 1700 [facility] PRN Reason: Protocol Last Admin: 04/11/18 05:31 Dose: 166.667 mls/hr Magnesium Hydroxide (Milk Of Magnesia) 30 ml PO DAILY PRN PRN Reason: Constipation Last Admin: 04/07/18 21:16 Dose: 30 ml Nadolol (Corgard) 20 mg PO DAILY [facility] Last Admin: 04/11/18 09:31 Dose: 20 mg Nystatin (Nystatin Oral Susp) 5 ml PO TID [facility] Last Admin: 04/11/18 13:23 Dose: Not Given Ondansetron HCl (Zofran Odt) 4 mg PO Q8H PRN PRN Reason: Nausea/Vomiting Last Admin: 04/10/18 14:47 Dose: 4 mg Oxycodone/Acetaminophen (Percocet 5/325 Mg Tab) 2 tab PO Q4 PRN PRN Reason: Pain, severe (8-10) Stop: 04/13/18 21:20 Last Admin: 04/10/18 22:21 Dose: 2 tab Oxycodone/Acetaminophen (Percocet 5/325 Mg Tab) 1 tab PO Q4 PRN PRN Reason: Pain, moderate (4-7) Stop: 04/13/18 21:21 Last Admin: 04/11/18 11:14 Dose: 1 tab Senna/Docusate Sodium (Senokot S 50 Mg-8.6 Mg) 2 tab PO HS [facility] Last Admin: 04/10/18 21:00 Dose: 2 tab Sucralfate (Carafate Tab) 1 gm PO TID@0630,1130,1630 [facility] Last Admin: 04/11/18 11:15 Dose: 1 gm - Labs Labs: 04/10/18 14:55 04/10/18 14:55
--- NOTE | 2018-04-11 15:47 | CP.PCM.PN ---
Subjective - Date & Time of Evaluation Date of Evaluation: 04/11/18 Time of Evaluation: 15:45 - Subjective Subjective: i d note patient is having doppler studies will have 4 weeks of iv antibiotics Objective - Vital Signs/Intake and Output Vital Signs (last 24 hours): Temp Pulse Resp BP Pulse Ox 98.1 F 64 20 136/72 100 04/11/18 08:46 04/11/18 09:31 04/11/18 08:46 04/11/18 09:31 04/11/18 08:46 - Medications Medications: Current Medications Acetaminophen (Tylenol 325mg Tab) 650 mg PO Q6 PRN PRN Reason: Pain, Mild (1-3) Aspirin (Ecotrin) 81 mg PO BID [facility] Last Admin: 04/11/18 09:32 Dose: 81 mg Cholecalciferol (Vitamin D) 2,000 intlu PO DAILY [facility] Last Admin: 04/11/18 09:33 Dose: 2,000 intlu Famotidine (Pepcid) 20 mg PO DAILY@2100 [facility] Last Admin: 04/10/18 21:01 Dose: 20 mg Ferrous Sulfate (Feosol) 325 mg PO TID [facility] Last Admin: 04/11/18 13:23 Dose: 325 mg Ertapenem 1 gm/ Sodium (Chloride) 100 mls @ 100 mls/hr IVPB DAILY@2100 [facility] PRN Reason: Protocol Last Admin: 04/10/18 20:59 Dose: 100 mls/hr Vancomycin HCl 1 gm/ Sodium (Chloride) 250 mls @ 166.667 mls/hr IVPB Q12@0500, 1700 [facility] PRN Reason: Protocol Last Admin: 04/11/18 05:31 Dose: 166.667 mls/hr Magnesium Hydroxide (Milk Of Magnesia) 30 ml PO DAILY PRN PRN Reason: Constipation Last Admin: 04/07/18 21:16 Dose: 30 ml Nadolol (Corgard) 20 mg PO DAILY [facility] Last Admin: 04/11/18 09:31 Dose: 20 mg Nystatin (Nystatin Oral Susp) 5 ml PO TID [facility] Last Admin: 04/11/18 13:23 Dose: Not Given Ondansetron HCl (Zofran Odt) 4 mg PO Q8H PRN PRN Reason: Nausea/Vomiting Last Admin: 04/10/18 14:47 Dose: 4 mg Oxycodone/Acetaminophen (Percocet 5/325 Mg Tab) 2 tab PO Q4 PRN PRN Reason: Pain, severe (8-10) Stop: 04/13/18 21:20 Last Admin: 04/10/18 22:21 Dose: 2 tab Oxycodone/Acetaminophen (Percocet 5/325 Mg Tab) 1 tab PO Q4 PRN PRN Reason: Pain, moderate (4-7) Stop: 04/13/18 21:21 Last Admin: 04/11/18 11:14 Dose: 1 tab Senna/Docusate Sodium (Senokot S 50 Mg-8.6 Mg) 2 tab PO HS [facility] Last Admin: 04/10/18 21:00 Dose: 2 tab Sucralfate (Carafate Tab) 1 gm PO TID@0630,1130,1630 [facility] Last Admin: 04/11/18 11:15 Dose: 1 gm - Labs Labs: 04/10/18 14:55 04/10/18 14:55
--- NOTE | 2018-04-11 17:02 | CP.PCM.PN ---
Subjective - Date & Time of Evaluation Date of Evaluation: 04/11/18 Time of Evaluation: 17:02 - Subjective Subjective: Patient making good gains ambulating 10 steps and over 100' pain is controlled she has no complaints or other requests continue current care Objective - Vital Signs/Intake and Output Vital Signs (last 24 hours): Temp Pulse Resp BP Pulse Ox 98.2 F 64 20 148/54 L 100 04/11/18 16:32 04/11/18 16:32 04/11/18 16:32 04/11/18 16:32 04/11/18 16:32 - Medications Medications: Current Medications Acetaminophen (Tylenol 325mg Tab) 650 mg PO Q6 PRN PRN Reason: Pain, Mild (1-3) Aspirin (Ecotrin) 81 mg PO BID [facility] Last Admin: 04/11/18 09:32 Dose: 81 mg Cholecalciferol (Vitamin D) 2,000 intlu PO DAILY [facility] Last Admin: 04/11/18 09:33 Dose: 2,000 intlu Famotidine (Pepcid) 20 mg PO DAILY@2100 [facility] Last Admin: 04/10/18 21:01 Dose: 20 mg Ferrous Sulfate (Feosol) 325 mg PO TID [facility] Last Admin: 04/11/18 13:23 Dose: 325 mg Ertapenem 1 gm/ Sodium (Chloride) 100 mls @ 100 mls/hr IVPB DAILY@2100 [facility] PRN Reason: Protocol Last Admin: 04/10/18 20:59 Dose: 100 mls/hr Vancomycin HCl 1 gm/ Sodium (Chloride) 250 mls @ 166.667 mls/hr IVPB Q12@0500, 1700 [facility] PRN Reason: Protocol Last Admin: 04/11/18 05:31 Dose: 166.667 mls/hr Magnesium Hydroxide (Milk Of Magnesia) 30 ml PO DAILY PRN PRN Reason: Constipation Last Admin: 04/07/18 21:16 Dose: 30 ml Nadolol (Corgard) 20 mg PO DAILY [facility] Last Admin: 04/11/18 09:31 Dose: 20 mg Nystatin (Nystatin Oral Susp) 5 ml PO TID [facility] Last Admin: 04/11/18 13:23 Dose: Not Given Ondansetron HCl (Zofran Odt) 4 mg PO Q8H PRN PRN Reason: Nausea/Vomiting Last Admin: 04/10/18 14:47 Dose: 4 mg Oxycodone/Acetaminophen (Percocet 5/325 Mg Tab) 2 tab PO Q4 PRN PRN Reason: Pain, severe (8-10) Stop: 04/13/18 21:20 Last Admin: 04/10/18 22:21 Dose: 2 tab Oxycodone/Acetaminophen (Percocet 5/325 Mg Tab) 1 tab PO Q4 PRN PRN Reason: Pain, moderate (4-7) Stop: 04/13/18 21:21 Last Admin: 04/11/18 11:14 Dose: 1 tab Senna/Docusate Sodium (Senokot S 50 Mg-8.6 Mg) 2 tab PO HS [facility] Last Admin: 04/10/18 21:00 Dose: 2 tab Sucralfate (Carafate Tab) 1 gm PO TID@0630,1130,1630 [facility] Last Admin: 04/11/18 11:15 Dose: 1 gm - Labs Labs: 04/10/18 14:55 04/10/18 14:55
[2018-04-11] MEDS: Docusate-Senna 50 mg-8.6 mg Tab PO SCH (21:03)
[2018-04-12] MEDS: Oxycodone/Acetaminophen 5/325 mg Tab PO PRN ×3 (02:26→18:32)
[2018-04-12] MEDS: Nystatin 100,000 Units/ml Oral Susp 5 ml UD PO SCH ×3 (09:11→16:25)
[2018-04-12] MEDS: Cholecalciferol 1,000 INTLU TAB PO SCH (09:13)
--- NOTE | 2018-04-12 18:16 | CP.PCM.PN ---
Subjective - Date & Time of Evaluation Date of Evaluation: 04/12/18 Time of Evaluation: 18:10 - Subjective Subjective: I D NOTE LESS SWELLING NO DRAINAGE TODAY WILL BE ABLE TO GO HOME ON SAT OR .SHOULD HAVE 4 WEEKS IV ANTIBIOTIC TREATMENT(POSSIBLY 6 WEEKS PENDING CLINICAL RESPONSE). Objective - Vital Signs/Intake and Output Vital Signs (last 24 hours): Temp Pulse Resp BP Pulse Ox 97.0 F L 71 20 121/62 100 04/12/18 15:59 04/12/18 15:59 04/12/18 15:59 04/12/18 15:59 04/12/18 15:59 - Medications Medications: Current Medications Acetaminophen (Tylenol 325mg Tab) 650 mg PO Q6 PRN PRN Reason: Pain, Mild (1-3) Aspirin (Ecotrin) 81 mg PO BID [facility] Last Admin: 04/12/18 16:25 Dose: 81 mg Cholecalciferol (Vitamin D) 2,000 intlu PO DAILY [facility] Last Admin: 04/12/18 09:13 Dose: 2,000 intlu Famotidine (Pepcid) 20 mg PO DAILY@2100 [facility] Last Admin: 04/11/18 21:01 Dose: 20 mg Ferrous Sulfate (Feosol) 325 mg PO TID [facility] Last Admin: 04/12/18 16:24 Dose: 325 mg Ertapenem 1 gm/ Sodium (Chloride) 100 mls @ 100 mls/hr IVPB DAILY@2100 [facility] PRN Reason: Protocol Last Admin: 04/11/18 22:15 Dose: 100 mls/hr Vancomycin HCl 1 gm/ Sodium (Chloride) 250 mls @ 166.667 mls/hr IVPB Q12@0500, 1700 [facility] PRN Reason: Protocol Last Admin: 04/12/18 16:23 Dose: 166.667 mls/hr Magnesium Hydroxide (Milk Of Magnesia) 30 ml PO DAILY PRN PRN Reason: Constipation Last Admin: 04/07/18 21:16 Dose: 30 ml Nadolol (Corgard) 20 mg PO DAILY [facility] Last Admin: 04/12/18 09:12 Dose: 20 mg Nystatin (Nystatin Oral Susp) 5 ml PO TID [facility] Last Admin: 04/12/18 16:25 Dose: 5 ml Ondansetron HCl (Zofran Odt) 4 mg PO Q8H PRN PRN Reason: Nausea/Vomiting Last Admin: 04/10/18 14:47 Dose: 4 mg Oxycodone/Acetaminophen (Percocet 5/325 Mg Tab) 2 tab PO Q4 PRN PRN Reason: Pain, severe (8-10) Stop: 04/13/18 21:20 Last Admin: 04/12/18 09:10 Dose: 2 tab Oxycodone/Acetaminophen (Percocet 5/325 Mg Tab) 1 tab PO Q4 PRN PRN Reason: Pain, moderate (4-7) Stop: 04/13/18 21:21 Last Admin: 04/12/18 02:26 Dose: 1 tab Senna/Docusate Sodium (Senokot S 50 Mg-8.6 Mg) 2 tab PO HS [facility] Last Admin: 04/11/18 21:03 Dose: 2 tab Sucralfate (Carafate Tab) 1 gm PO TID@0630,1130,1630 [facility] Last Admin: 04/12/18 16:24 Dose: 1 gm - Labs Labs: 04/10/18 14:55 04/10/18 14:55
[2018-04-12] MEDS: Docusate-Senna 50 mg-8.6 mg Tab PO SCH (22:00)
[2018-04-13] MEDS: Oxycodone/Acetaminophen 5/325 mg Tab PO PRN ×4 (02:25→17:58)
[2018-04-13] MEDS: Nystatin 100,000 Units/ml Oral Susp 5 ml UD PO SCH ×3 (09:28→18:00)
[2018-04-13] MEDS: Cholecalciferol 1,000 INTLU TAB PO SCH (09:28)
--- NOTE | 2018-04-13 12:01 | CP.PCM.PN ---
Subjective - Date & Time of Evaluation Date of Evaluation: 04/13/18 Time of Evaluation: 10:30 - Subjective Subjective: NO NEW COMPLAINTS Objective - Vital Signs/Intake and Output Vital Signs (last 24 hours): Temp Pulse Resp BP Pulse Ox 97.6 F 70 20 140/75 93 L 04/13/18 08:47 04/13/18 09:27 04/13/18 08:47 04/13/18 09:27 04/13/18 08:47 - Medications Medications: Current Medications Acetaminophen (Tylenol 325mg Tab) 650 mg PO Q6 PRN PRN Reason: Pain, Mild (1-3) Aspirin (Ecotrin) 81 mg PO BID [facility] Last Admin: 04/13/18 09:27 Dose: 81 mg Cholecalciferol (Vitamin D) 2,000 intlu PO DAILY [facility] Last Admin: 04/13/18 09:28 Dose: 2,000 intlu Famotidine (Pepcid) 20 mg PO DAILY@2100 [facility] Last Admin: 04/12/18 22:00 Dose: 20 mg Ferrous Sulfate (Feosol) 325 mg PO TID [facility] Last Admin: 04/13/18 09:27 Dose: 325 mg Ertapenem 1 gm/ Sodium (Chloride) 100 mls @ 100 mls/hr IVPB DAILY@2100 [facility] PRN Reason: Protocol Last Admin: 04/12/18 20:51 Dose: 100 mls/hr Vancomycin HCl 1 gm/ Sodium (Chloride) 250 mls @ 166.667 mls/hr IVPB Q12@0500, 1700 [facility] PRN Reason: Protocol Last Admin: 04/13/18 06:22 Dose: 166.667 mls/hr Magnesium Hydroxide (Milk Of Magnesia) 30 ml PO DAILY PRN PRN Reason: Constipation Last Admin: 04/07/18 21:16 Dose: 30 ml Nadolol (Corgard) 20 mg PO DAILY [facility] Last Admin: 04/13/18 09:27 Dose: 20 mg Nystatin (Nystatin Oral Susp) 5 ml PO TID [facility] Last Admin: 04/13/18 09:28 Dose: 5 ml Ondansetron HCl (Zofran Odt) 4 mg PO Q8H PRN PRN Reason: Nausea/Vomiting Last Admin: 04/10/18 14:47 Dose: 4 mg Oxycodone/Acetaminophen (Percocet 5/325 Mg Tab) 2 tab PO Q4 PRN PRN Reason: Pain, severe (8-10) Stop: 04/13/18 21:20 Last Admin: 04/12/18 18:32 Dose: 2 tab Oxycodone/Acetaminophen (Percocet 5/325 Mg Tab) 1 tab PO Q4 PRN PRN Reason: Pain, moderate (4-7) Stop: 04/13/18 21:21 Last Admin: 04/13/18 11:51 Dose: 1 tab Senna/Docusate Sodium (Senokot S 50 Mg-8.6 Mg) 2 tab PO HS [facility] Last Admin: 04/12/18 22:00 Dose: 2 tab Sucralfate (Carafate Tab) 1 gm PO TID@0630,1130,1630 [facility] Last Admin: 04/13/18 11:52 Dose: 1 gm - Labs Labs: 04/10/18 14:55 04/10/18 14:55 - Respiratory Exam Respiratory Exam: Clear to Ausculation Bilateral - Cardiovascular Exam Cardiovascular Exam: REGULAR RHYTHM - Additional Findings Additional findings: ID NOTE REVIEWED Assessment and Plan - Assessment and Plan (Free Text) Assessment: S/P RIGHT THR HYPERTENSION Plan: CONTINUE IV ANTIBIOTICS, ASPIRIN AND CORGARD
--- NOTE | 2018-04-13 12:39 | CP.PCM.PN ---
Subjective - Date & Time of Evaluation Date of Evaluation: 04/13/18 Time of Evaluation: 12:39 - Subjective Subjective: I D NOTE VANCOMYCIN TROUGH IS 14.1 HAVE DECREASED VANCOMYCIN TO 500MG IV Q12H . SHE WILL BE DISCHARGED ON SAT AND/OR SATURDAY AND WILL CONTINUE TO MONITOR TROUGHS OUTPATIENT NO CHANGE IN ERTAPENEM. Objective - Vital Signs/Intake and Output Vital Signs (last 24 hours): Temp Pulse Resp BP Pulse Ox 97.6 F 70 20 140/75 93 L 04/13/18 08:47 04/13/18 09:27 04/13/18 08:47 04/13/18 09:27 04/13/18 08:47 - Medications Medications: Current Medications Acetaminophen (Tylenol 325mg Tab) 650 mg PO Q6 PRN PRN Reason: Pain, Mild (1-3) Aspirin (Ecotrin) 81 mg PO BID [facility] Last Admin: 04/13/18 09:27 Dose: 81 mg Cholecalciferol (Vitamin D) 2,000 intlu PO DAILY [facility] Last Admin: 04/13/18 09:28 Dose: 2,000 intlu Famotidine (Pepcid) 20 mg PO DAILY@2100 [facility] Last Admin: 04/12/18 22:00 Dose: 20 mg Ferrous Sulfate (Feosol) 325 mg PO TID [facility] Last Admin: 04/13/18 09:27 Dose: 325 mg Ertapenem 1 gm/ Sodium (Chloride) 100 mls @ 100 mls/hr IVPB DAILY@2100 [facility] PRN Reason: Protocol Last Admin: 04/12/18 20:51 Dose: 100 mls/hr Vancomycin HCl 500 mg/ Sodium (Chloride) 100 mls @ 100 mls/hr IVPB Q12 [facility] PRN Reason: Protocol Magnesium Hydroxide (Milk Of Magnesia) 30 ml PO DAILY PRN PRN Reason: Constipation Last Admin: 04/07/18 21:16 Dose: 30 ml Nadolol (Corgard) 20 mg PO DAILY [facility] Last Admin: 04/13/18 09:27 Dose: 20 mg Nystatin (Nystatin Oral Susp) 5 ml PO TID [facility] Last Admin: 04/13/18 09:28 Dose: 5 ml Ondansetron HCl (Zofran Odt) 4 mg PO Q8H PRN PRN Reason: Nausea/Vomiting Last Admin: 04/10/18 14:47 Dose: 4 mg Oxycodone/Acetaminophen (Percocet 5/325 Mg Tab) 2 tab PO Q4 PRN PRN Reason: Pain, severe (8-10) Stop: 04/13/18 21:20 Last Admin: 04/12/18 18:32 Dose: 2 tab Oxycodone/Acetaminophen (Percocet 5/325 Mg Tab) 1 tab PO Q4 PRN PRN Reason: Pain, moderate (4-7) Stop: 04/13/18 21:21 Last Admin: 04/13/18 11:51 Dose: 1 tab Senna/Docusate Sodium (Senokot S 50 Mg-8.6 Mg) 2 tab PO HS [facility] Last Admin: 04/12/18 22:00 Dose: 2 tab Sucralfate (Carafate Tab) 1 gm PO TID@0630,1130,1630 [facility] Last Admin: 04/13/18 11:52 Dose: 1 gm - Labs Labs: 04/10/18 14:55 04/10/18 14:55
[2018-04-13] MEDS ORDERED: Oxycodone/Acetaminophen 5/325 mg Tab PO PRN (19:01)
[2018-04-13] MEDS: Docusate-Senna 50 mg-8.6 mg Tab PO SCH (23:25)
[2018-04-14] MEDS: Oxycodone/Acetaminophen 5/325 mg Tab PO PRN ×5 (00:48→22:57)
[2018-04-14] MEDS: Nystatin 100,000 Units/ml Oral Susp 5 ml UD PO SCH ×3 (09:20→16:36)
[2018-04-14] MEDS: Cholecalciferol 1,000 INTLU TAB PO SCH (09:21)
--- NOTE | 2018-04-14 09:44 | CP.PCM.PN ---
Subjective - Date & Time of Evaluation Date of Evaluation: 04/14/18 Time of Evaluation: 08:00 - Subjective Subjective: NO CHEST PAIN OR SOB Objective - Vital Signs/Intake and Output Vital Signs (last 24 hours): Temp Pulse Resp BP Pulse Ox 97.9 F 73 20 134/85 100 04/14/18 08:17 04/14/18 09:22 04/14/18 08:17 04/14/18 09:22 04/14/18 08:17 - Medications Medications: Current Medications Acetaminophen (Tylenol 325mg Tab) 650 mg PO Q6 PRN PRN Reason: Pain, Mild (1-3) Aspirin (Ecotrin) 81 mg PO BID [facility] Last Admin: 04/14/18 09:20 Dose: 81 mg Cholecalciferol (Vitamin D) 2,000 intlu PO DAILY [facility] Last Admin: 04/14/18 09:21 Dose: 2,000 intlu Famotidine (Pepcid) 20 mg PO DAILY@2100 [facility] Last Admin: 04/13/18 23:25 Dose: 20 mg Ferrous Sulfate (Feosol) 325 mg PO TID [facility] Last Admin: 04/14/18 09:21 Dose: 325 mg Ertapenem 1 gm/ Sodium (Chloride) 100 mls @ 100 mls/hr IVPB DAILY@2100 [facility] PRN Reason: Protocol Last Admin: 04/13/18 23:24 Dose: 100 mls/hr Vancomycin HCl 500 mg/ Sodium (Chloride) 100 mls @ 100 mls/hr IVPB Q12H [facility] PRN Reason: Protocol Last Admin: 04/14/18 04:27 Dose: 100 mls/hr Magnesium Hydroxide (Milk Of Magnesia) 30 ml PO DAILY PRN PRN Reason: Constipation Last Admin: 04/07/18 21:16 Dose: 30 ml Nadolol (Corgard) 20 mg PO DAILY [facility] Last Admin: 04/14/18 09:22 Dose: 20 mg Nystatin (Nystatin Oral Susp) 5 ml PO TID [facility] Last Admin: 04/14/18 09:20 Dose: 5 ml Ondansetron HCl (Zofran Odt) 4 mg PO Q8H PRN PRN Reason: Nausea/Vomiting Last Admin: 04/10/18 14:47 Dose: 4 mg Oxycodone/Acetaminophen (Percocet 5/325 Mg Tab) 1 tab PO Q4 PRN PRN Reason: Pain, moderate (4-7) Stop: 04/16/18 19:02 Last Admin: 04/14/18 06:37 Dose: 1 tab Oxycodone/Acetaminophen (Percocet 5/325 Mg Tab) 2 tab PO Q4 PRN PRN Reason: Pain, severe (8-10) Stop: 04/16/18 19:02 Senna/Docusate Sodium (Senokot S 50 Mg-8.6 Mg) 2 tab PO HS [facility] Last Admin: 04/13/18 23:25 Dose: 2 tab Sucralfate (Carafate Tab) 1 gm PO TID@0630,1130,1630 [facility] Last Admin: 04/14/18 06:37 Dose: 1 gm - Labs Labs: 04/10/18 14:55 04/10/18 14:55 - Respiratory Exam Respiratory Exam: Clear to Ausculation Bilateral - Cardiovascular Exam Cardiovascular Exam: REGULAR RHYTHM, +S1, +S2 Assessment and Plan - Assessment and Plan (Free Text) Assessment: S/P RIGHT THR FOR SEVERE ARTHRITIS HYPERTENSION Plan: CONTINUE IVANTIBIOTICS AND CORGARD FOR DISCHARGE TODAY OR TOMORROW
--- NOTE | 2018-04-14 16:33 | CP.PCM.PN ---
Subjective - Date & Time of Evaluation Date of Evaluation: 04/14/18 Time of Evaluation: 16:31 - Subjective Subjective: Patient states she is feeling good, anxious to go home. No new complaints, says there has not been any drainage from hip Objective - Vital Signs/Intake and Output Vital Signs (last 24 hours): Temp Pulse Resp BP Pulse Ox 97.4 F L 66 20 143/76 99 04/14/18 15:50 04/14/18 15:50 04/14/18 15:50 04/14/18 15:50 04/14/18 15:50 - Medications Medications: Current Medications Acetaminophen (Tylenol 325mg Tab) 650 mg PO Q6 PRN PRN Reason: Pain, Mild (1-3) Aspirin (Ecotrin) 81 mg PO BID [facility] Last Admin: 04/14/18 09:20 Dose: 81 mg Cholecalciferol (Vitamin D) 2,000 intlu PO DAILY [facility] Last Admin: 04/14/18 09:21 Dose: 2,000 intlu Famotidine (Pepcid) 20 mg PO DAILY@2100 [facility] Last Admin: 04/13/18 23:25 Dose: 20 mg Ferrous Sulfate (Feosol) 325 mg PO TID [facility] Last Admin: 04/14/18 12:32 Dose: 325 mg Ertapenem 1 gm/ Sodium (Chloride) 100 mls @ 100 mls/hr IVPB DAILY@2100 [facility] PRN Reason: Protocol Last Admin: 04/13/18 23:24 Dose: 100 mls/hr Vancomycin HCl 500 mg/ Sodium (Chloride) 100 mls @ 100 mls/hr IVPB Q12H [facility] PRN Reason: Protocol Last Admin: 04/14/18 04:27 Dose: 100 mls/hr Magnesium Hydroxide (Milk Of Magnesia) 30 ml PO DAILY PRN PRN Reason: Constipation Last Admin: 04/07/18 21:16 Dose: 30 ml Nadolol (Corgard) 20 mg PO DAILY [facility] Last Admin: 04/14/18 09:22 Dose: 20 mg Nystatin (Nystatin Oral Susp) 5 ml PO TID [facility] Last Admin: 04/14/18 12:32 Dose: 5 ml Ondansetron HCl (Zofran Odt) 4 mg PO Q8H PRN PRN Reason: Nausea/Vomiting Last Admin: 04/10/18 14:47 Dose: 4 mg Oxycodone/Acetaminophen (Percocet 5/325 Mg Tab) 1 tab PO Q4 PRN PRN Reason: Pain, moderate (4-7) Stop: 04/16/18 19:02 Last Admin: 04/14/18 15:07 Dose: 1 tab Oxycodone/Acetaminophen (Percocet 5/325 Mg Tab) 2 tab PO Q4 PRN PRN Reason: Pain, severe (8-10) Stop: 04/16/18 19:02 Last Admin: 04/14/18 09:55 Dose: 2 tab Senna/Docusate Sodium (Senokot S 50 Mg-8.6 Mg) 2 tab PO HS [facility] Last Admin: 04/13/18 23:25 Dose: 2 tab Sucralfate (Carafate Tab) 1 gm PO TID@0630,1130,1630 [facility] Last Admin: 04/14/18 11:30 Dose: 1 gm - Labs Labs: 04/10/18 14:55 04/10/18 14:55 - Extremities Exam Additional comments: right hip dressing change, changed earlier, 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 Betadine dressing applied. Incisioni ntact, healing, aura intact, still some swelling.+ROM ankle/toes, sensation intact, calves soft NT neg homans Assessment and Plan (1) Primary osteoarthritis of right hip Assessment & Plan: increased drainage last week now for 4 weeks IV abx PT/OT d/c planning cont dressing changes d/w Dr. Andrade, agrees with above Status: Acute (2) Vitamin D deficiency Status: Acute (3) Acute blood loss anemia Status: Acute
[2018-04-14] MEDS: Docusate-Senna 50 mg-8.6 mg Tab PO SCH (21:30)
--- NOTE | 2018-04-15 07:38 | CP.PCM.PN ---
Subjective - Date & Time of Evaluation Date of Evaluation: 04/15/18 Time of Evaluation: 07:38 - Subjective Subjective: Patient seen and examined at bedside comfortable. Pain well controlled. No drainage noted since last examined by ortho team. No new complaints. Patient will be discharged to home today. Objective - Vital Signs/Intake and Output Vital Signs (last 24 hours): Temp Pulse Resp BP Pulse Ox 97.9 F 70 20 152/70 H 99 04/14/18 19:50 04/14/18 19:50 04/14/18 19:50 04/14/18 19:50 04/14/18 19:50 - Medications Medications: Current Medications Acetaminophen (Tylenol 325mg Tab) 650 mg PO Q6 PRN PRN Reason: Pain, Mild (1-3) Aspirin (Ecotrin) 81 mg PO BID [facility] Last Admin: 04/14/18 16:36 Dose: 81 mg Cholecalciferol (Vitamin D) 2,000 intlu PO DAILY [facility] Last Admin: 04/14/18 09:21 Dose: 2,000 intlu Famotidine (Pepcid) 20 mg PO DAILY@2100 [facility] Last Admin: 04/14/18 21:30 Dose: 20 mg Ferrous Sulfate (Feosol) 325 mg PO TID [facility] Last Admin: 04/14/18 16:37 Dose: 325 mg Ertapenem 1 gm/ Sodium (Chloride) 100 mls @ 100 mls/hr IVPB DAILY@2100 [facility] PRN Reason: Protocol Last Admin: 04/14/18 21:28 Dose: 100 mls/hr Vancomycin HCl 500 mg/ Sodium (Chloride) 100 mls @ 100 mls/hr IVPB Q12H [facility] PRN Reason: Protocol Last Admin: 04/15/18 05:20 Dose: 100 mls/hr Magnesium Hydroxide (Milk Of Magnesia) 30 ml PO DAILY PRN PRN Reason: Constipation Last Admin: 04/07/18 21:16 Dose: 30 ml Nadolol (Corgard) 20 mg PO DAILY [facility] Last Admin: 04/14/18 09:22 Dose: 20 mg Nystatin (Nystatin Oral Susp) 5 ml PO TID [facility] Last Admin: 04/14/18 16:36 Dose: 5 ml Ondansetron HCl (Zofran Odt) 4 mg PO Q8H PRN PRN Reason: Nausea/Vomiting Last Admin: 04/10/18 14:47 Dose: 4 mg Oxycodone/Acetaminophen (Percocet 5/325 Mg Tab) 1 tab PO Q4 PRN PRN Reason: Pain, moderate (4-7) Stop: 04/16/18 19:02 Last Admin: 04/14/18 15:07 Dose: 1 tab Oxycodone/Acetaminophen (Percocet 5/325 Mg Tab) 2 tab PO Q4 PRN PRN Reason: Pain, severe (8-10) Stop: 04/16/18 19:02 Last Admin: 04/14/18 22:57 Dose: 2 tab Senna/Docusate Sodium (Senokot S 50 Mg-8.6 Mg) 2 tab PO HS [facility] Last Admin: 04/14/18 21:30 Dose: 2 tab Sucralfate (Carafate Tab) 1 gm PO TID@0630,1130,1630 [facility] Last Admin: 04/15/18 06:45 Dose: 1 gm - Labs Labs: 04/10/18 14:55 04/10/18 14:55 - Extremities Exam Additional comments: R hip: Wet to dry Betadine dressings intact, no serous drainage, wound intact with no serous drainage from mid wound B/l edema R>L improved sensation intact SP/DP/TN motor intact EHL/FHL/TA/G pedal pulses intact comps soft Assessment and Plan (1) Primary osteoarthritis of right hip Assessment & Plan: POD #20 s/p R GAIL doing well -Wet to dry betadine dressings changed -abx as per ID -PT/OT WBAT -orthopedically stable to discharge home -scheduled for f/u in office next Saturday -above d/w Dr. Andrade in agreement Status: Acute
[2018-04-15 07:58] VITALS: BP 153/81; PULSE 72; TEMP 98.1; O2SAT 96
[2018-04-15] MEDS: Nystatin 100,000 Units/ml Oral Susp 5 ml UD PO SCH ×2 (09:01→12:18)
[2018-04-15] MEDS: Cholecalciferol 1,000 INTLU TAB PO SCH (09:02)
[2018-04-15] MEDS: Oxycodone/Acetaminophen 5/325 mg Tab PO PRN (09:04)
--- NOTE | 2018-04-15 09:40 | CP.PCM.PN ---
Subjective - Date & Time of Evaluation Date of Evaluation: 04/15/18 Time of Evaluation: 08:30 - Subjective Subjective: NO NEW COMPLAINTS DOING OK Objective - Vital Signs/Intake and Output Vital Signs (last 24 hours): Temp Pulse Resp BP Pulse Ox 98.1 F 72 20 153/81 H 96 04/15/18 07:57 04/15/18 09:00 04/15/18 07:57 04/15/18 09:00 04/15/18 07:57 - Medications Medications: Current Medications Acetaminophen (Tylenol 325mg Tab) 650 mg PO Q6 PRN PRN Reason: Pain, Mild (1-3) Aspirin (Ecotrin) 81 mg PO BID [facility] Last Admin: 04/15/18 09:01 Dose: 81 mg Cholecalciferol (Vitamin D) 2,000 intlu PO DAILY [facility] Last Admin: 04/15/18 09:02 Dose: 2,000 intlu Famotidine (Pepcid) 20 mg PO DAILY@2100 [facility] Last Admin: 04/14/18 21:30 Dose: 20 mg Ferrous Sulfate (Feosol) 325 mg PO TID [facility] Last Admin: 04/15/18 09:01 Dose: 325 mg Ertapenem 1 gm/ Sodium (Chloride) 100 mls @ 100 mls/hr IVPB DAILY@2100 [facility] PRN Reason: Protocol Last Admin: 04/14/18 21:28 Dose: 100 mls/hr Vancomycin HCl 500 mg/ Sodium (Chloride) 100 mls @ 100 mls/hr IVPB Q12H [facility] PRN Reason: Protocol Last Admin: 04/15/18 05:20 Dose: 100 mls/hr Magnesium Hydroxide (Milk Of Magnesia) 30 ml PO DAILY PRN PRN Reason: Constipation Last Admin: 04/07/18 21:16 Dose: 30 ml Nadolol (Corgard) 20 mg PO DAILY [facility] Last Admin: 04/15/18 09:00 Dose: 20 mg Nystatin (Nystatin Oral Susp) 5 ml PO TID [facility] Last Admin: 04/15/18 09:01 Dose: 5 ml Ondansetron HCl (Zofran Odt) 4 mg PO Q8H PRN PRN Reason: Nausea/Vomiting Last Admin: 04/10/18 14:47 Dose: 4 mg Oxycodone/Acetaminophen (Percocet 5/325 Mg Tab) 1 tab PO Q4 PRN PRN Reason: Pain, moderate (4-7) Stop: 04/16/18 19:02 Last Admin: 04/15/18 09:04 Dose: 1 tab Oxycodone/Acetaminophen (Percocet 5/325 Mg Tab) 2 tab PO Q4 PRN PRN Reason: Pain, severe (8-10) Stop: 04/16/18 19:02 Last Admin: 04/14/18 22:57 Dose: 2 tab Senna/Docusate Sodium (Senokot S 50 Mg-8.6 Mg) 2 tab PO HS [facility] Last Admin: 04/14/18 21:30 Dose: 2 tab Sucralfate (Carafate Tab) 1 gm PO TID@0630,1130,1630 [facility] Last Admin: 04/15/18 06:45 Dose: 1 gm - Labs Labs: 04/10/18 14:55 04/10/18 14:55 - Respiratory Exam Respiratory Exam: Clear to Ausculation Bilateral - Cardiovascular Exam Cardiovascular Exam: REGULAR RHYTHM, +S1, +S2 Assessment and Plan - Assessment and Plan (Free Text) Assessment: S/P RIGHT THR HYPERTENSION Plan: FOR DISCHARGE TODAY PATIENT TO CONTINUE CORGARD PATIENT WILL HAVE HOME IV ANTIBIOTICS
--- NOTE | 2018-04-15 09:58 | CP.PCM.DIS ---
Provider - Provider Date of Admission: 03/26/18 18:50 Attending physician: Jairon Purdy MD Primary care physician: Patrick Andrade III, MD Consults: ortho consult cardio consult physiatry ID consult Time Spent in preparation of Discharge (in minutes): 15 Hospital Course - Lab Results Lab Results: Micro Results 04/12/18 18:48 Blood-Thru Central Line Blood Culture - Preliminary NO GROWTH AFTER 48 HOURS 04/12/18 18:38 Blood-Venous Blood Culture - Preliminary NO GROWTH AFTER 48 HOURS Most Recent Lab Values WBC 6.2 K/uL (4.8-10.8) 04/10/18 14:55 RBC 2.87 Mil/uL (3.80-5.20) L 04/10/18 14:55 Hgb 8.4 g/dL (12.0-16.0) L 04/10/18 14:55 Hct 25.5 % (34.0-47.0) L 04/10/18 14:55 MCV 88.9 fl (81.0-99.0) 04/10/18 14:55 MCH 29.5 pg (27.0-31.0) 04/10/18 14:55 MCHC 33.1 g/dL (33.0-37.0) 04/10/18 14:55 RDW 15.8 % (11.5-14.5) H 04/10/18 14:55 Plt Count 442 K/uL (130-400) H 04/10/18 14:55 MPV 8.2 fl (7.2-11.7) 04/10/18 14:55 Neut % (Auto) 70.8 % (50.0-75.0) 04/10/18 14:55 Lymph % (Auto) 14.7 % (20.0-40.0) L 04/10/18 14:55 Elk % (Auto) 9.2 % (0.0-10.0) 04/10/18 14:55 Eos % (Auto) 4.2 % (0.0-4.0) H 04/10/18 14:55 Baso % (Auto) 1.1 % (0.0-2.0) 04/10/18 14:55 Neut # (Auto) 4.4 K/uL (1.8-7.0) 04/10/18 14:55 Lymph # (Auto) 0.9 K/uL (1.0-4.3) L 04/10/18 14:55 Elk # (Auto) 0.6 K/uL (0.0-0.8) 04/10/18 14:55 Eos # (Auto) 0.3 K/uL (0.0-0.7) 04/10/18 14:55 Baso # (Auto) 0.1 K/uL (0.0-0.2) 04/10/18 14:55 ESR 84 mm/hr (0-30) H 04/09/18 05:45 Sodium 141 mmol/l (132-148) 04/10/18 14:55 Potassium 4.3 MMOL/L (3.6-5.0) 04/10/18 14:55 Chloride 103 mmol/L (98-107) 04/10/18 14:55 Carbon Dioxide 29 mmol/L (22-30) 04/10/18 14:55 Anion Gap 13 (10-20) 04/10/18 14:55 BUN 10 mg/dl (7-17) 04/10/18 14:55 Creatinine 0.8 mg/dl (0.7-1.2) 04/10/18 14:55 Est GFR ( Amer) > 60 04/10/18 14:55 Est GFR (Non-Af Amer) > 60 04/10/18 14:55 Random Glucose 101 mg/dL (65-105) 04/10/18 14:55 Calcium 9.1 mg/dL (8.4-10.2) 04/10/18 14:55 Procalcitonin < 0.05 NG/ML (0.19-0.49) L 04/10/18 07:58 Vancomycin Trough 14.1 ug/mL (5.0-10.0) H 04/13/18 04:10 - Hospital Course Hospital Course: 72 yo female with history of HTN and AFib had right THR on 03/25/18 after failing conservative management of chronic pain on the right hip. Patient was transferred to TCU for PT and IV antibiotics. ortho , cardiology, physiatry and ID were following her during hospital stay.She was given IV vancomycin and Ertapenem during hospital stay. Today will be discharged home with follow up with Dr. Andrade.Will continue IV antibiotics for 4 more weeks as out patient. 1. Post Right THR wound on right hip post surgery healing well ID consult with Dr Andrea chandra.Will need 4 weeks of IV vancomycin and Ertapenem as out patient .Will monitor Vanco trough and BMP weekly right leg swelling secondary to diminished venous return caused by right hip surgery and congestion venous doppler on 04/03/18 was negative for DVT will d/c home pain management 2. Paroxysmal A Fib rate controlled presently in sinus rhythm continue Nadolol 20mg PO daily 3. Hypertension BP controlled on Nadolol 4. Oral Trush Mycostatin susp 5 cc swish and swallow TID 5. DVT prophylaxis on hold because of wound drainage at surgical site asa 81 MG PO bid 6. Acute blood loss anemia post op Hgb dropped to 8.4 Started Ferrous sulfate Discharge Exam - Head Exam Head Exam: ATRAUMATIC, NORMOCEPHALIC - Eye Exam Eye Exam: EOMI, Normal appearance, PERRL Pupil Exam: NORMAL ACCOMODATION - ENT Exam ENT Exam: Mucous Membranes Moist, Normal Exam - Neck Exam Neck exam: Full Rom, Normal Inspection - Respiratory Exam Respiratory Exam: Clear to PA & Lateral, NORMAL BREATHING PATTERN. absent: Rales, Rhonchi, Wheezes - Cardiovascular Exam Cardiovascular Exam: REGULAR RHYTHM, RRR, +S1, +S2. absent: JVD - GI/Abdominal Exam GI & Abdominal Exam: Normal Bowel Sounds, Soft. absent: Distended, Guarding, Rebound, Tenderness - Rectal Exam Rectal Exam: Deferred - Extremities Exam Extremities exam: normal capillary refill, normal inspection, pedal pulses present - Neurological Exam Neurological exam: Alert, CN II-XII Intact, Oriented x3 - Psychiatric Exam Psychiatric exam: Normal Affect - Skin Skin Exam: Dry, Pallor, Warm Discharge Plan - Discharge Medications Prescriptions: Aspirin [Ecotrin] 81 mg PO BID #60 tabec Cholecalciferol [Vitamin D 1000 IU] 2,000 intlu PO DAILY #30 tab Docusate Sodium/Sennosides A [Senokot S 50 MG-8.6 MG] 2 tab PO HS #30 tab Ertapenem 1gm in NS 50ml [Invanz] 1 gm IV DAILY #30 bag Famotidine [Pepcid] 20 mg PO DAILY #30 tab Ferrous Sulfate [Feosol] 325 mg PO TID #90 tab Magnesium Hydroxide [Milk Of Magnesia] 30 ml PO DAILY PRN #1 bottle PRN Reason: Constipation Nadolol [Corgard] 20 mg PO DAILY #30 tab Nystatin [Nystatin Oral Susp] 5 ml PO TID #1 bottle Ondansetron ODT [Zofran ODT] 4 mg PO Q8H PRN #10 odt PRN Reason: Nausea/Vomiting oxyCODONE/Acetaminophen [Percocet 5/325 mg Tab] 2 tab PO Q4 PRN #20 tab PRN Reason: Pain, Severe (8-10) Sucralfate [Carafate Tab] 1 gm PO TID@0630,1130,1630 #90 tab Vancomycin 500mg in NS 500 mg IVPB Q12 #60 bag - Follow Up Plan Condition: GOOD Disposition: HOME/ ROUTINE Patient education suggested?: Yes Instructions: Total Hip Replacement (DC), Peripherally-Inserted Central Catheter (DC) Additional Instructions: -betadine wet dsg daily covered with abd pad to rt hip until seen by Dr Andrade . -home iv antibiotic Referrals: Patrick Andrade III, MD [Primary Care Provider] -
== END 2018-04-15 13:10 | disposition home or self-care (01) | DRG 560 ==
LOC: H.TCU 18:50
PROC: F07Z5ZZ Bed Mobility Treatment (ICD-10-PCS; principal; 2018-03-26)
PROC: F08Z1FZ Dressing Techniques Treatment using Assistive, Adaptive, Supportive or Protective Equipment (ICD-10-PCS; 2018-03-26)
PROC: F08Z0FZ Bathing/Showering Techniques Treatment using Assistive, Adaptive, Supportive or Protective Equipment (ICD-10-PCS; 2018-03-26)
PROC: F08Z4FZ Home Management Treatment using Assistive, Adaptive, Supportive or Protective Equipment (ICD-10-PCS; 2018-03-26)
PROC: F07Z9FZ Gait Training/Functional Ambulation Treatment using Assistive, Adaptive, Supportive or Protective Equipment (ICD-10-PCS; 2018-03-26)
PROC: F07L6ZZ Therapeutic Exercise Treatment of Musculoskeletal System - Lower Back / Lower Extremity (ICD-10-PCS; 2018-03-26)
PROC: F07Z8ZZ Transfer Training Treatment (ICD-10-PCS; 2018-03-26)
DX: Z47.1 Aftercare following joint replacement surgery (principal); B37.0 Candidal stomatitis; D62 Acute posthemorrhagic anemia; Z96.641 Presence of right artificial hip joint; Z96.651 Presence of right artificial knee joint; I48.0 Paroxysmal atrial fibrillation; I10 Essential (primary) hypertension; E55.9 Vitamin D deficiency, unspecified

== ENCOUNTER 2018-04-30 09:59 | Inpatient (IN) | payer MEDICARE ==
[2018-04-30 09:59] VITALS: BMI 30.8
[2018-04-30] MEDS ORDERED: Sodium Chloride 0.9% 1,000 ML IV STA (11:08)
--- NOTE | 2018-04-30 11:17 | ED PDOC ---
HPI: General Adult Time Seen by Provider: 04/30/18 11:15 Chief Complaint (Nursing): Abnormal Labs Chief Complaint (Provider): elevated cpk History Per: Patient (72 y/o s/p hip sx for osteoarthritis here for elevated cpk level 3044 noted outpatient. Patient has been on daptomycin x 6 days for presumptive joint infection. States wound cx was negative. Notes increased pain by right hip/thigh x 3 days. Is also on INvanz. Has h/o anemia.) Past Medical History Reviewed: Historical Data, Nursing Documentation, Vital Signs Vital Signs: Last Vital Signs Temp 98.7 F 04/30/18 10:04 Pulse 58 L 04/30/18 10:04 Resp 17 04/30/18 10:04 BP 121/75 04/30/18 10:04 Pulse Ox 98 04/30/18 12:38 - Medical History PMH: Atrial Fibrillation (paroxysmal), HTN Denies: Asthma, Bronchitis, Cardia Arrhythmia, CHF, COPD, Emphysema, Fractures, Hypercholesterolemia, Mitral Valve Prolapse, Peripheral Edema, Pneumonia, Pulmonary Embolism, Sleep Apnea - Surgical History Surgical History: Cholecystectomy Denies: Pacemaker - Family History Family History: States: No Known Family Hx - Home Medications Home Medications: Ambulatory Orders Medication Instructions Recorded Famotidine [Pepcid] 20 mg PO DAILY #30 tab 04/14/18 Ondansetron ODT [Zofran ODT] 4 mg PO Q8H PRN #10 odt 04/14/18 Ertapenem 1gm in NS 50ml [Invanz] 1 gm IV DAILY #30 bag 04/15/18 Aspirin [Ecotrin] 162 mg PO DAILY 04/30/18 DAPTOmycin [Cubicin] 500 mg IVPB DAILY 04/30/18 Docusate [Colace] 200 mg PO HS 04/30/18 Nadolol/Bendroflumethiazide 1 tab PO DAILY 04/30/18 [Corzide 40-5 Tablet] - Allergies Allergies/Adverse Reactions: Allergies Allergy/AdvReac Type Severity Reaction Status Date / Time vancomycin Allergy RASH Verified 04/30/18 10:50 citrus fruits Allergy RASH Uncoded 04/08/18 12:30 vit C Allergy RASH Uncoded 03/24/18 06:46 Review of Systems ROS Statement: Except As Marked, All Systems Reviewed And Found Negative Physical Exam - Reviewed Nursing Documentation Reviewed: Yes Vital Signs Reviewed: Yes - Physical Exam Appears: Positive for: Well, Non-toxic, No Acute Distress Head Exam: Positive for: ATRAUMATIC, NORMAL INSPECTION, NORMOCEPHALIC Skin: Positive for: Normal Color, Warm, Pallor Eye Exam: Positive for: EOMI, Normal appearance, PERRL ENT: Positive for: Normal ENT Inspection Neck: Positive for: Normal, Painless ROM Cardiovascular/Chest: Positive for: Regular Rate, Rhythm Respiratory: Positive for: CNT, Normal Breath Sounds Gastrointestinal/Abdominal: Positive for: Normal Exam, Soft Back: Positive for: Normal Inspection Extremity: Positive for: Normal ROM Neurologic/Psych: Positive for: Alert, Oriented - Laboratory Results Result Diagrams: 04/30/18 11:50 04/30/18 11:50 - ECG ECG Rhythm: Positive for: Sinus Rhythm (nsr 63 bpm no ectopy no acute changes) O2 Sat by Pulse Oximetry: 98 - Progress ED Course And Treament: d/w hospitalist dr. gonzalez for admission and care. NS 1 liter 500ml per hour Seen in ED by Delbert BURT ortho Disposition - Clinical Impression Clinical Impression: Elevated CPK - Patient ED Disposition Is Patient to be Admitted: Yes - Disposition Disposition Time: 12:06 Condition: FAIR - Pt Status Changed To: Hospital Disposition Of: Inpatient - Admit Certification Admit to Inpatient:: After my assessment, the patient will require hospitalization for at least two midnights. This is because of the severity of symptoms shown, intensity of services needed, and/or the medical risk in this patient being treated as an outpatient.
[2018-04-30 12:08] LABS: BASO # 0.1 K/uL (0.0-0.2); BASO % 1.9 % (0.0-2.0); EOS # 0.4 K/uL (0.0-0.7); EOS % 8.5 % (0.0-4.0); HEMOGLOBIN 9.3 g/dL (12.0-16.0); LYMPH # 0.8 K/uL (1.0-4.3); LYMPH % 15.8 % (20.0-40.0); MEAN CORPUSCULAR HEMOGLOBIN 29.7 pg (27.0-31.0); MEAN CORPUSCULAR HGB CONC 33.7 g/dL (33.0-37.0); MEAN PLATELET VOLUME 8.7 fl (7.2-11.7); MONO # 0.4 K/uL (0.0-0.8); MONO % 7.5 % (0.0-10.0); NEUT # 3.3 K/uL (1.8-7.0); NEUT % 66.3 % (50.0-75.0); NRBC % 0.1 % (0.0-0.0); RBC 3.14 Mil/uL (3.80-5.20); RED CELL DISTRIBUTION WIDTH 15.4 % (11.5-14.5)
[2018-04-30 12:17] LABS: ALB/GLOB RATIO 0.9 (1.0-2.1); ALBUMIN 3.6 g/dL (3.5-5.0); ALT/SGPT 33 U/L (9-52); AST/SGOT 60 U/L (14-36); BLOOD UREA NITROGEN 12 mg/dl (7-17); CALCIUM 9.3 mg/dL (8.4-10.2); GFR NON-AFRICAN AMERICAN > 60
--- NOTE | 2018-04-30 13:10 | CP.PCM.CON ---
History of Present Illness - History of Present Illness History of Present Illness: Orthopedic consult Patient is a 72 y/o female with PMH of HTN and paroxysmal Afib, who was sent by Dr. Mendez to [facility] ER due to elevated CPK due to her IV antibiotics. Dr. Andrade was consulted for postop orthopedic management. Patient had a right THR on 03/25/18 discharged from TCU on 04/15/18 She was receiving IV antibiotics for postop right hip drainage. She was sent home with IV Ertapenem and Vancomycin. Vancomycin was stopped 6 days ago due to developing an allergy and she was switched to Daptomycin. She was seen in Dr. Mendez's office 2 days ago for routine CPK levels which was found to be elevated prompting her admission and treatment. Currently, she has mild R hip stiffness and soreness which has imroved since her discharge. She notes that she has not yet started outpatient PT since her discharge home. She denies radiation of pain/numbness/ tingling. She also denies CP/SOB/N/V/D/fever/dysuria/melena. Review of Systems - Review of Systems All systems: reviewed and no additional remarkable complaints except Review of Systems: as per HPI Past Patient History - Infectious Disease Hx of Infectious Diseases: None - Past Medical History & Family History Past Medical History?: Yes Past Family History: Reviewed and not pertinent - Past Social History Smoking Status: Never Smoked Alcohol: None Drugs: Denies - CARDIAC Hx Atrial Fibrillation: Yes (paroxysmal) Hx Cardia Arrhythmia: No Hx Congestive Heart Failure: No Hx Hypercholesterolemia: No Hx Hypertension: Yes Hx Mitral Valve Prolapse: No Hx Pacemaker: No Hx Peripheral Edema: No - PULMONARY Hx Asthma: No Hx Bronchitis: No Hx Chronic Obstructive Pulmonary Disease (COPD): No Hx Emphysema: No Hx Pneumonia: No Hx Pulmonary Embolism: No Hx Sleep Apnea: No - HEENT Hx Cataracts: Yes - HEMATOLOGICAL/ONCOLOGICAL Hx Blood Transfusions: Yes Hx Blood Transfusion Reaction: No - MUSCULOSKELETAL/RHEUMATOLOGICAL Hx Fractures: No - PSYCHIATRIC Hx Emotional Abuse: No Hx Physical Abuse: No Hx Substance Use: No - SURGICAL HISTORY Hx Cholecystectomy: Yes - ANESTHESIA Hx Anesthesia: Yes Hx Anesthesia Reactions: No Meds Allergies/Adverse Reactions: Allergies Allergy/AdvReac Type Severity Reaction Status Date / Time vancomycin Allergy RASH Verified 04/30/18 10:50 citrus fruits Allergy RASH Uncoded 04/08/18 12:30 vit C Allergy RASH Uncoded 03/24/18 06:46 - Medications Medications: as per med rec Physical Exam - Constitutional Appears: Well, No Acute Distress - Head Exam Head Exam: ATRAUMATIC, NORMOCEPHALIC - Eye Exam Eye Exam: EOMI, Normal appearance, PERRL - ENT Exam ENT Exam: Mucous Membranes Moist - Respiratory Exam Respiratory Exam: Clear to Auscultation Bilateral, NORMAL BREATHING PATTERN - Cardiovascular Exam Cardiovascular Exam: +S1, +S2 - GI/Abdominal Exam GI & Abdominal Exam: Normal Bowel Sounds, Soft - Extremities Exam Additional comments: R hip: GAIL scar well healed, no drainage, no erythema, no tenderness sensation intact SP/DP/TN motor intact EHL/FHL/TA/G/HS/Q pedal pulses intact comps soft NT - Neurological Exam Neurological exam: Alert, Oriented x3 - Psychiatric Exam Psychiatric exam: Normal Affect, Normal Mood - Skin Skin Exam: Normal Color, Warm Results - Vital Signs Recent Vital Signs: Last Vital Signs Temp 98.7 F 04/30/18 10:04 Pulse 58 L 04/30/18 10:04 Resp 17 04/30/18 10:04 BP 121/75 04/30/18 10:04 Pulse Ox 98 04/30/18 12:39 - Labs Result Diagrams: 04/30/18 11:50 04/30/18 11:50 Labs: Laboratory Results - last 24 hr 04/30/18 04/30/18 04/30/18 11:50 11:50 11:50 WBC 5.0 RBC 3.14 L Hgb 9.3 L Hct 27.6 L MCV 88.0 MCH 29.7 MCHC 33.7 RDW 15.4 H Plt Count 283 D MPV 8.7 Neut % (Auto) 66.3 Lymph % (Auto) 15.[address] [place] % (Auto) 7.5 Eos % (Auto) 8.5 H Baso % (Auto) 1.9 Neut # (Auto) 3.3 Lymph # (Auto) 0.[address] [place] # (Auto) 0.4 Eos # (Auto) 0.4 Baso # (Auto) 0.1 Sodium 140 Potassium 3.5 L Chloride 104 Carbon Dioxide 27 Anion Gap 13 BUN 12 Creatinine 0.7 Est GFR ( Amer) > 60 Est GFR (Non-Af Amer) > 60 Random Glucose 121 H Calcium 9.3 Magnesium 1.6 Total Bilirubin 0.7 AST 60 H D ALT 33 Alkaline Phosphatase 132 H D Total Creatine Kinase 1280 H Total Protein 7.5 Albumin 3.6 Globulin 3.8 Albumin/Globulin Ratio 0.9 L Blood Type A POSITIVE Antibody Screen Positive BBK History Checked Patient has bt Assessment & Plan (1) Status post total hip replacement, right Assessment and Plan: Patient is 1 month s/p R GAIL who presents with rhabdomyolysis secondary to IV abx -PT/OT WBAT once medically/ID cleared -medical management -abx as per Dr. Mendez -orthopedically stable -will follow -above d/w Dr. Andrade in agreement Status: Acute - Date & Time Date: 04/30/18 Time: 12:30 Radiology Interpretation - Veneer Stock Layer Veneer Stock Layer:: Radiologist - Study type Study type:: Plain films - Interpretation Interpretation:: Unchanged from prior - Notes: Notes:: Accession No. : [id number] Patient Name / ID : TAYLER GALAVIZ / [id number] Exam Date : 04/30/2018 13:08:25 ( Approved ) Study Comment : Sex / Age : F / 72Y Creator : Davonte Crockett MD Dictator : Davonte Crockett MD Scientific Illustrator : A [employer] Collections Rep : Davonte Crockett MD Approver2 : Report Date : 04/30/2018 15:32:47 My Comment : PROCEDURE: Right Hip Radiographs. HISTORY: hip sx right hip COMPARISON: None. FINDINGS: BONES: Status post total hip replacement. No evidence of prosthesis loosening. No acute osseous fracture. No dislocation. JOINTS: As above SOFT TISSUES: Normal. OTHER FINDINGS: None. IMPRESSION: Right total hip replacement.
--- NOTE | 2018-04-30 13:52 | CP.PCM.HP ---
History of Present Illness - History of Present Illness History of Present Illness: 72 yo female with history of HTN, Paroxysmal AFib and recent right THR on came in because she was found to have elevated CPK by Dr Mendez in his office. Patient was recently discharged from TCU on 04/15/18 after undergoing PT and IV antibiotics for infection of the right hip. She was sent home with IV Ertapenem and Vancomycin. Vancomycin was stopped 6 days ago and switched to Daptomycin. 3 days ago she started having pain on the right hip and thigh. She was seen in the office and was found to have elevated CPK. She was advised to go to ER for admission for management of rhabdomyolysis. Present on Admission - Present on Admission Any Indicators Present on Admission: No History of DVT/PE: No History of Uncontrolled Diabetes: No Urinary Catheter: No Decubitus Ulcer Present: No Review of Systems - Review of Systems All systems: reviewed and no additional remarkable complaints except (aside from those mentioned above, 12 point system review were negative by me) Past Patient History - Infectious Disease Hx of Infectious Diseases: None - Tetanus Immunizations Tetanus Immunization: Unknown - Past Medical History & Family History Past Medical History?: Yes - Past Social History Smoking Status: Never Smoked Chewing Tobacco Use: No Cigar Use: No Alcohol: None Drugs: Denies Home Situation {Lives}: With Family - CARDIAC Hx Atrial Fibrillation: Yes (paroxysmal) Hx Cardia Arrhythmia: No Hx Congestive Heart Failure: No Hx Hypercholesterolemia: No Hx Hypertension: Yes Hx Mitral Valve Prolapse: No Hx Pacemaker: No Hx Peripheral Edema: No - PULMONARY Hx Asthma: No Hx Bronchitis: No Hx Chronic Obstructive Pulmonary Disease (COPD): No Hx Emphysema: No Hx Pneumonia: No Hx Pulmonary Embolism: No Hx Sleep Apnea: No - HEENT Hx Cataracts: Yes - HEMATOLOGICAL/ONCOLOGICAL Hx Blood Transfusions: Yes Hx Blood Transfusion Reaction: No - MUSCULOSKELETAL/RHEUMATOLOGICAL Hx Fractures: No - PSYCHIATRIC Hx Emotional Abuse: No Hx Physical Abuse: No Hx Substance Use: No - SURGICAL HISTORY Hx Cholecystectomy: Yes - ANESTHESIA Hx Anesthesia: Yes Hx Anesthesia Reactions: No Meds Allergies/Adverse Reactions: Allergies Allergy/AdvReac Type Severity Reaction Status Date / Time vancomycin Allergy RASH Verified 04/30/18 10:50 citrus fruits Allergy RASH Uncoded 04/08/18 12:30 vit C Allergy RASH Uncoded 03/24/18 06:46 Physical Exam - Constitutional Appears: No Acute Distress - Head Exam Head Exam: ATRAUMATIC - Eye Exam Eye Exam: absent: Scleral icterus - ENT Exam ENT Exam: Mucous Membranes Moist - Neck Exam Neck exam: Negative for: Meningismus - Respiratory Exam Respiratory Exam: absent: Rales, Rhonchi, Wheezes, Respiratory Distress - Cardiovascular Exam Cardiovascular Exam: REGULAR RHYTHM, +S1, +S2 - GI/Abdominal Exam GI & Abdominal Exam: Soft. absent: Tenderness - Rectal Exam Rectal Exam: Deferred - Extremities Exam Extremities exam: Positive for: pedal edema (right worse than the left) - Back Exam Back exam: NORMAL INSPECTION - Neurological Exam Neurological exam: Alert, Oriented x3 - Psychiatric Exam Psychiatric exam: Normal Affect - Skin Skin Exam: Dry, Intact Results - Vital Signs Recent Vital Signs: Last Vital Signs Temp 98.4 F 04/30/18 13:16 Pulse 54 L 04/30/18 13:16 Resp 18 04/30/18 13:16 BP 140/74 04/30/18 13:16 Pulse Ox 100 04/30/18 13:16 - Labs Result Diagrams: 04/30/18 11:50 04/30/18 11:50 Labs: Laboratory Results - last 24 hr 04/30/18 04/30/18 04/30/18 11:50 11:50 11:50 WBC 5.0 RBC 3.14 L Hgb 9.3 L Hct 27.6 L MCV 88.0 MCH 29.7 MCHC 33.7 RDW 15.4 H Plt Count 283 D MPV 8.7 Neut % (Auto) 66.3 Lymph % (Auto) 15.8 L [place] % (Auto) 7.5 Eos % (Auto) 8.5 H Baso % (Auto) 1.9 Neut # (Auto) 3.3 Lymph # (Auto) 0.8 L [place] # (Auto) 0.4 Eos # (Auto) 0.4 Baso # (Auto) 0.1 Sodium 140 Potassium 3.5 L Chloride 104 Carbon Dioxide 27 Anion Gap 13 BUN 12 Creatinine 0.7 Est GFR ( Amer) > 60 Est GFR (Non-Af Amer) > 60 Random Glucose 121 H Calcium 9.3 Magnesium 1.6 Total Bilirubin 0.7 AST 60 H D ALT 33 Alkaline Phosphatase 132 H D Total Creatine Kinase 1280 H Total Protein 7.5 Albumin 3.6 Globulin 3.8 Albumin/Globulin Ratio 0.9 L Blood Type A POSITIVE Antibody Screen Positive BBK History Checked Patient has bt Assessment & Plan - Assessment and Plan (Free Text) Assessment: 72 yo female with history of HTN, Paroxysmal AFib and recent right THR on came in because she was found to have elevated CPK by Dr Mendez in his office. Patient was recently discharged from TCU on 04/15/18 after undergoing PT and IV antibiotics for infection of the right hip. She was sent home with IV Ertapenem and Vancomycin. Vancomycin was stopped 6 days ago and switched to Daptomycin. 3 days ago she started having pain on the right hip and thigh. She was seen in the office and was found to have elevated CPK. She was advised to go to ER for admission for management of rhabdomyolysis. 1. Rhabdomyolysis serum CPK: 3044 rpt CPK: 1280 continue IV hydration with NSS 200cc/hr 2. Post Right THR ID consult with Dr Mendez Orthopedic consult with Dr Andrade continue IV Ertapenem 3. Paroxysmal A Fib rate controlled presently in sinus rhythm continue Nadolol 20mg PO daily 4. Hypertension BP controlled on Nadolol 5. Blood loss anemia Hgb: 9.3 6. DVT prophylaxis ASA 162mg PO daily
[2018-04-30] MEDS ORDERED: ERTAPENEM 1 GM IVPB SCH (14:30)
[2018-04-30] MEDS ORDERED: [UNRECOGNIZED DRUG - OTHER] PO SCH (14:30)
[2018-04-30] MEDS ORDERED: NADOLOL PO SCH (14:30)
--- NOTE | 2018-04-30 15:34 | RAD ---
PROCEDURE: Right Hip Radiographs. HISTORY: hip sx right hip COMPARISON: None. FINDINGS: BONES: Status post total hip replacement. No evidence of prosthesis loosening. No acute osseous fracture. No dislocation. JOINTS: As above SOFT TISSUES: Normal. OTHER FINDINGS: None. IMPRESSION: Right total hip replacement.
[2018-04-30] MEDS: [UNRECOGNIZED DRUG - OTHER] IVPB SCH (16:42)
[2018-04-30] MEDS: ERTAPENEM IVPB SCH (16:42)
[2018-04-30] MEDS: Sodium Chloride 0.9% 1,000 ML IV SCH ×2 (16:43→20:47)
[2018-04-30] MEDS: Oxycodone/Acetaminophen 5/325 mg Tab PO PRN (16:59)
--- NOTE | 2018-04-30 20:01 | CP.PCM.PN ---
Subjective - Date & Time of Evaluation Date of Evaluation: 04/30/18 Time of Evaluation: 20:00 - Subjective Subjective: I D NOTE PAATIENT EXAMINED IV FLUIDS ARE BEING GIVEN CPK IS DECREASING WILL HOLD NEW ANTIBIOTIC RX FOR STAPH TILL TOMORROW AND AFTER DISCUSSION c Objective - Vital Signs/Intake and Output Vital Signs (last 24 hours): Temp Pulse Resp BP Pulse Ox 98.4 F 64 20 149/70 100 04/30/18 15:05 04/30/18 18:56 04/30/18 18:56 04/30/18 15:05 04/30/18 18:56 Intake and Output: 04/30/18 05/01/18 18:59 06:59 Intake Total 1000 Balance 1000 - Medications Medications: Current Medications Aspirin (Ecotrin) 162 mg PO DAILY [facility] Last Admin: 04/30/18 16:40 Dose: Not Given Docusate Sodium (Colace) 100 mg PO BID [facility] Last Admin: 04/30/18 16:44 Dose: Not Given Home Med (Nadolol/Bendroflumethiazide [Corzide 40-5 Tablet]) 1 tab PO DAILY [facility] Sodium Chloride (Sodium Chloride 0.9%) 1,000 mls @ 200 mls/hr IV .Q5H [facility] Last Admin: 04/30/18 16:43 Dose: 200 mls/hr Ertapenem 1 gm/ Sodium (Chloride) 100 mls @ 100 mls/hr IVPB DAILY [facility] Last Admin: 04/30/18 16:42 Dose: 100 mls/hr Oxycodone/Acetaminophen (Percocet 5/325 Mg Tab) 1 tab PO Q4 PRN PRN Reason: Pain, moderate (4-7) Stop: 05/03/18 15:45 Last Admin: 04/30/18 16:59 Dose: 1 tab Pantoprazole Sodium (Protonix Ec Tab) 40 mg PO DAILY [facility] - Labs Labs: 04/30/18 11:50 04/30/18 11:50
--- NOTE | 2018-04-30 22:48 | CARD ---
APPROVED REPORT Date of service: 04/30/2018 EKG Measurement Heart [id number] <Conclusion> Normal sinus rhythm with sinus arrhythmia Normal ECG
[2018-05-01] MEDS: Sodium Chloride 0.9% 1,000 ML IV SCH ×5 (02:34→23:37)
[2018-05-01] MEDS: Oxycodone/Acetaminophen 5/325 mg Tab PO PRN ×3 (02:37→23:32)
--- NOTE | 2018-05-01 06:07 | CON ---
Copied To: Brian Mendez MD Attending MD: Brian Mendez MD DATE: 04/30/2018 INFECTIOUS DISEASE CONSULT HISTORY OF PRESENT ILLNESS: She is a 72-year-old female with history of HTN, paroxysmal atrial fibrillation, and recent right total hip replacement on 03/25/2018. The patient had some possible likely infection, there was swelling and drainage on the previous admission and she was started on IV antibiotics for an extended period for the right hip. She was sent home on IV ertapenem and vancomycin. Vancomycin had been stopped a week ago because of allergic reaction and switched to daptomycin. Apparently, she began to have some muscle pain. Her CPK which was a routine order came back greater than 3000, I think it was 3344. At that point, I called her and advised her to come into the emergency room for admission to get IV fluids for the management of rhabdomyolysis. Her white count is 5, hemoglobin is 9.3, which is increased for her, her platelet count is 283, polys 66, lymphs 15.8. Chemistries: Her potassium is 3.5, sodium 140, chloride is 104, BUN 12, creatinine 0.7. GFR greater than 60, so renal function remained intact despite the increased CPK. Her total creatine kinase is as a followup after stopping the daptomycin is 1280. PHYSICAL EXAMINATION: GENERAL: The patient is alert, cooperative, oriented to time and place and is quite pleasant. HEENT: Essentially within normal limits, although her conjunctivae are pale. NECK: Supple. HEART: Regular sinus rhythm. LUNGS: Clear. ABDOMEN: Soft. Positive bowel sounds. BACK: Normal. EXTREMITIES: The right lower extremity appears much less swollen from the previous admission. ASSESSMENT AND PLAN: Hip wound looks improved also at this point in time, needs to be treated for the rhabdomyolysis with intravenous fluids and have to consider starting possibly p.o. antibiotic for her postop hip infection. We will decide that tomorrow. Prefer to keep her off intravenous antibiotics at this time. Brian Mendez MD
[2018-05-01 07:35] LABS: BASO % 0.2 % (0.0-2.0); EOS # 0.4 K/uL (0.0-0.7); EOS % 10.2 % (0.0-4.0); HEMOGLOBIN 8.6 g/dL (12.0-16.0); LYMPH % 26.3 % (20.0-40.0); MEAN CELL VOLUME 88.3 fl (81.0-99.0); MEAN CORPUSCULAR HEMOGLOBIN 29.4 pg (27.0-31.0); MEAN CORPUSCULAR HGB CONC 33.3 g/dL (33.0-37.0); MONO # 0.3 K/uL (0.0-0.8); MONO % 7.8 % (0.0-10.0); NEUT % 55.5 % (50.0-75.0); RBC 2.93 Mil/uL (3.80-5.20); RED CELL DISTRIBUTION WIDTH 15.1 % (11.5-14.5); WHITE BLOOD COUNT 3.7 K/uL (4.8-10.8)
[2018-05-01 07:38] LABS: BLOOD UREA NITROGEN 10 mg/dl (7-17); CALCIUM 8.9 mg/dL (8.4-10.2); GFR NON-AFRICAN AMERICAN > 60
--- NOTE | 2018-05-01 08:31 | CP.PCM.PN ---
Subjective - Date & Time of Evaluation Date of Evaluation: 05/01/18 Time of Evaluation: 07:45 - Subjective Subjective: Patient seen and examined sitting up in bed comfortable. No complaints of pain currently. Tolerating diet well. No new complaints. Denies CP/SOB/N/V/D/fever. Objective - Vital Signs/Intake and Output Vital Signs (last 24 hours): Temp Pulse Resp BP Pulse Ox 98.4 F 64 20 127/72 97 05/01/18 07:51 05/01/18 07:51 05/01/18 07:51 05/01/18 07:51 05/01/18 07:51 - Medications Medications: Current Medications Aspirin (Ecotrin) 162 mg PO DAILY [facility] Last Admin: 04/30/18 16:40 Dose: Not Given Docusate Sodium (Colace) 100 mg PO BID [facility] Last Admin: 04/30/18 16:44 Dose: Not Given Home Med (Nadolol/Bendroflumethiazide [Corzide 40-5 Tablet]) 1 tab PO DAILY [facility] Sodium Chloride (Sodium Chloride 0.9%) 1,000 mls @ 200 mls/hr IV .Q5H [facility] Last Admin: 05/01/18 02:34 Dose: 200 mls/hr Ertapenem 1 gm/ Sodium (Chloride) 100 mls @ 100 mls/hr IVPB DAILY [facility] Last Admin: 04/30/18 16:42 Dose: 100 mls/hr Oxycodone/Acetaminophen (Percocet 5/325 Mg Tab) 1 tab PO Q4 PRN PRN Reason: Pain, moderate (4-7) Stop: 05/03/18 15:45 Last Admin: 05/01/18 02:37 Dose: 1 tab Pantoprazole Sodium (Protonix Ec Tab) 40 mg PO DAILY [facility] - Labs Labs: 05/01/18 07:00 05/01/18 07:00 - Extremities Exam Additional comments: R hip: GAIL scar well healed, no drainage, no erythema, no tenderness sensation intact SP/DP/TN motor intact EHL/FHL/TA/G/HS/Q pedal pulses intact comps soft NT Assessment and Plan (1) Status post total hip replacement, right Assessment & Plan: Patient is 1 month s/p R GAIL who presents with rhabdomyolysis secondary to IV abx -PT/OT WBAT once medically/ID cleared -abx as per Dr. Mendez -orthopedically stable -will continue to follow -above d/w Dr. Andrade in agreement Status: Acute
[2018-05-01] MEDS: Pantoprazole 40 mg EC Tab PO SCH (09:05)
[2018-05-01] MEDS: ERTAPENEM IVPB SCH (09:05)
[2018-05-01] MEDS: [UNRECOGNIZED DRUG - OTHER] IVPB SCH (09:05)
--- NOTE | 2018-05-01 11:36 | CP.PCM.PN ---
Subjective - Date & Time of Evaluation Date of Evaluation: 05/01/18 Time of Evaluation: 11:00 - Subjective Subjective: Pt is a 72 yo F with a pmh of HTN, paroxysmal A fib, R total hip replacement admitted by Dr. Alegria due to a CPK of 3044 as well as R hip and leg pain for 3 days. Today patient feels well, states she can walk with a cane, denies any leg or hip pain. Denies nausea, vomiting, diarrhea, constipation, chest pain , calf pain. States that she has a good appetite. Objective - Vital Signs/Intake and Output Vital Signs (last 24 hours): Temp Pulse Resp BP Pulse Ox 98.4 F 64 20 127/72 97 05/01/18 09:53 05/01/18 09:53 05/01/18 09:53 05/01/18 09:53 05/01/18 09:53 - Medications Medications: Current Medications Aspirin (Ecotrin) 162 mg PO DAILY [facility] Last Admin: 05/01/18 09:05 Dose: 162 mg Docusate Sodium (Colace) 100 mg PO BID [facility] Last Admin: 05/01/18 09:05 Dose: 100 mg Home Med (Nadolol/Bendroflumethiazide [Corzide 40-5 Tablet]) 1 tab PO DAILY [facility] [place] Sodium Chloride (Sodium Chloride 0.9%) 1,000 mls @ 200 mls/hr IV .Q5H [facility] Last Admin: 05/01/18 09:09 Dose: 200 mls/hr Ertapenem 1 gm/ Sodium (Chloride) 100 mls @ 100 mls/hr IVPB DAILY [facility] Last Admin: 05/01/18 09:05 Dose: 100 mls/hr Oxycodone/Acetaminophen (Percocet 5/325 Mg Tab) 1 tab PO Q4 PRN PRN Reason: Pain, moderate (4-7) Stop: 05/03/18 15:45 Last Admin: 05/01/18 02:37 Dose: 1 tab Pantoprazole Sodium (Protonix Ec Tab) 40 mg PO DAILY [facility] Last Admin: 05/01/18 09:05 Dose: 40 mg - Labs Labs: 05/01/18 07:00 05/01/18 07:00 - Constitutional Appears: Well, Non-toxic, No Acute Distress - Head Exam Head Exam: ATRAUMATIC, NORMOCEPHALIC - Eye Exam Eye Exam: EOMI, Normal appearance, PERRL - ENT Exam ENT Exam: Mucous Membranes Moist - Respiratory Exam Respiratory Exam: Clear to Ausculation Bilateral, NORMAL BREATHING PATTERN - Cardiovascular Exam Cardiovascular Exam: RRR, +S1, +S2 - GI/Abdominal Exam GI & Abdominal Exam: Soft, Normal Bowel Sounds - Extremities Exam Extremities Exam: Normal Inspection - Neurological Exam Neurological Exam: Alert, Awake, Oriented x3 - Psychiatric Exam Psychiatric exam: Normal Mood - Skin Skin Exam: Normal Color Assessment and Plan - Assessment and Plan (Free Text) Assessment: Pt is a 72 yo F with a pmh of HTN, paroxysmal A fib, R total hip replacement admitted by Dr. Alegria due to a CPK of 3044 as well as R hip and leg pain for 3 days. 1. Rhabdomyolysis Serum CPK: 3044 Rpt CPK: 1004 Continue IV hydration Check CPK in AM PT eval, PT/OT when cleared, possible D/C tomorrow 2. Post Right THR ID consult with Dr Mendez Orthopedic consult with Dr Andrade Continue IV Ertapenem PICC line 03/28 3. Paroxysmal A Fib Rate controlled Presently in sinus rhythm Nontinue Nadolol 40mg PO daily 4. Hypertension BP controlled Nadolol 40mg PO daily 5. Blood loss anemia Hgb: 8.6 down from 9.3 6. DVT prophylaxis ASA 162mg PO daily
[2018-05-02 06:22] LABS: BLOOD UREA NITROGEN 8 mg/dl (7-17); CALCIUM 8.4 mg/dL (8.4-10.2); GFR NON-AFRICAN AMERICAN > 60
[2018-05-02] MEDS: Sodium Chloride 0.9% 1,000 ML IV SCH ×2 (06:24→16:43)
[2018-05-02] MEDS: ERTAPENEM IVPB SCH (09:24)
[2018-05-02] MEDS: [UNRECOGNIZED DRUG - OTHER] IVPB SCH (09:24)
[2018-05-02] MEDS: Pantoprazole 40 mg EC Tab PO SCH (09:25)
--- NOTE | 2018-05-02 11:11 | CP.PCM.PN ---
Subjective - Date & Time of Evaluation Date of Evaluation: 05/02/18 Time of Evaluation: 11:11 - Subjective Subjective: Patient states pain is controlled. SHe has been getting out of bed and walking without assistance. Dnies CP/SOB?dizziness/numbenss/tinglling Objective - Vital Signs/Intake and Output Vital Signs (last 24 hours): Temp Pulse Resp BP Pulse Ox 97.9 F 57 L 18 164/70 H 99 05/02/18 08:16 05/02/18 09:24 05/02/18 08:16 05/02/18 09:24 05/02/18 08:16 - Medications Medications: Current Medications Aspirin (Ecotrin) 162 mg PO DAILY [facility] Last Admin: 05/02/18 09:25 Dose: 162 mg Docusate Sodium (Colace) 100 mg PO BID [facility] Last Admin: 05/02/18 09:24 Dose: 100 mg Hydrochlorothiazide (Microzide) 12.5 mg PO DAILY [facility] Last Admin: 05/02/18 09:25 Dose: 12.5 mg Sodium Chloride (Sodium Chloride 0.9%) 1,000 mls @ 200 mls/hr IV .Q5H [facility] Last Admin: 05/02/18 06:24 Dose: 200 mls/hr Ertapenem 1 gm/ Sodium (Chloride) 100 mls @ 100 mls/hr IVPB DAILY [facility] Last Admin: 05/02/18 09:24 Dose: 100 mls/hr Linezolid (Zyvox 600mg/300ml D5w) 600 mg in 300 mls @ 300 mls/hr IVPB Q12 [facility] PRN Reason: Protocol Nadolol (Corgard) 40 mg PO DAILY [facility] Last Admin: 05/02/18 09:24 Dose: 40 mg Oxycodone/Acetaminophen (Percocet 5/325 Mg Tab) 1 tab PO Q4 PRN PRN Reason: Pain, moderate (4-7) Stop: 05/03/18 15:45 Last Admin: 05/01/18 23:32 Dose: 1 tab Pantoprazole Sodium (Protonix Ec Tab) 40 mg PO DAILY [facility] Last Admin: 05/02/18 09:25 Dose: 40 mg - Labs Labs: 05/01/18 07:00 05/02/18 05:45 - Extremities Exam Additional comments: Right hip: incision well healed, dry, some induration noted around incision site , but superficial. No drainage. Noted hyperpigmentation of skin. Thigh soft +ROM ankle/toes no pain with hip ROM sensation intact calves soft NT neg homans Assessment and Plan (1) Status post total hip replacement, right Assessment & Plan: resume PT/OT FWB VTE proph CPK improving d/w DR. Andrade, agrees with above Status: Acute (2) Elevated CPK Status: Acute
[2018-05-02] MEDS: Linezolid 600 mg in D5W 300 ml 600 MG/300 ML BAG IVPB SCH ×2 (11:21→21:10)
[2018-05-02] MEDS: Oxycodone/Acetaminophen 5/325 mg Tab PO PRN (14:07)
--- NOTE | 2018-05-02 14:48 | CP.PCM.PN ---
Subjective - Date & Time of Evaluation Date of Evaluation: 05/02/18 Time of Evaluation: 09:00 - Subjective Subjective: Today patient feels well, states she can walk with a cane, denies any leg or hip pain. Patients CPK is down to 610 from 3044. Denies nausea, vomiting, diarrhea, constipation, chest pain, calf pain. States that she has a good appetite. Objective - Vital Signs/Intake and Output Vital Signs (last 24 hours): Temp Pulse Resp BP Pulse Ox 97.9 F 57 L 18 164/70 H 99 05/02/18 08:16 05/02/18 09:24 05/02/18 08:16 05/02/18 09:24 05/02/18 08:16 - Medications Medications: Current Medications Aspirin (Ecotrin) 162 mg PO DAILY [facility] Last Admin: 05/02/18 09:25 Dose: 162 mg Docusate Sodium (Colace) 100 mg PO BID [facility] Last Admin: 05/02/18 09:24 Dose: 100 mg Hydrochlorothiazide (Microzide) 12.5 mg PO DAILY [facility] Last Admin: 05/02/18 09:25 Dose: 12.5 mg Sodium Chloride (Sodium Chloride 0.9%) 1,000 mls @ 200 mls/hr IV .Q5H [facility] Last Admin: 05/02/18 06:24 Dose: 200 mls/hr Ertapenem 1 gm/ Sodium (Chloride) 100 mls @ 100 mls/hr IVPB DAILY [facility] Last Admin: 05/02/18 09:24 Dose: 100 mls/hr Linezolid (Zyvox 600mg/300ml D5w) 600 mg in 300 mls @ 300 mls/hr IVPB Q12 [facility] PRN Reason: Protocol Last Admin: 05/02/18 11:21 Dose: 300 mls/hr Nadolol (Corgard) 40 mg PO DAILY [facility] Last Admin: 05/02/18 09:24 Dose: 40 mg Oxycodone/Acetaminophen (Percocet 5/325 Mg Tab) 1 tab PO Q4 PRN PRN Reason: Pain, moderate (4-7) Stop: 05/03/18 15:45 Last Admin: 05/02/18 14:07 Dose: 1 tab Pantoprazole Sodium (Protonix Ec Tab) 40 mg PO DAILY [facility] Last Admin: 05/02/18 09:25 Dose: 40 mg - Labs Labs: 05/01/18 07:00 05/02/18 05:45 - Constitutional Appears: Well, Non-toxic, No Acute Distress - Head Exam Head Exam: ATRAUMATIC, NORMAL INSPECTION, NORMOCEPHALIC - Eye Exam Eye Exam: EOMI, Normal appearance, PERRL - ENT Exam ENT Exam: Mucous Membranes Moist - Neck Exam Neck Exam: Full ROM - Respiratory Exam Respiratory Exam: Clear to Ausculation Bilateral, NORMAL BREATHING PATTERN - Cardiovascular Exam Cardiovascular Exam: RRR, +S1, +S2 - GI/Abdominal Exam GI & Abdominal Exam: Soft, Normal Bowel Sounds - Extremities Exam Extremities Exam: Normal Inspection - Neurological Exam Neurological Exam: Alert, Awake, Oriented x3 - Psychiatric Exam Psychiatric exam: Normal Mood - Skin Skin Exam: Normal Color Assessment and Plan - Assessment and Plan (Free Text) Assessment: Assessment: Pt is a 72 yo F with a pmh of HTN, paroxysmal A fib, R total hip replacement admitted by Dr. Alegria due to a CPK of 3044 as well as R hip and leg pain for 3 days. 1. Rhabdomyolysis Serum CPK trending down: 3044, 1004, now 610. Continue to follow trend of CPK in AM, recommend CPK of less than 400 as rhabdo can affect renal fxn Dr Agarwal consulted to monitor renal fxn due to rhabdomylysis- kidney fxn stable , monitor electrolytes, tomorrow AM possibly order Myoglobin, serum uric acid, urine output Continue oral IV hydration PT eval 2. Post Right THR ID consulted with Dr Mendez Orthopedic consult with Dr Andrade Continue IV Ertapenem and Zyvox Q12 PICC line inserted on 03/28 3. Paroxysmal A Fib Rate controlled Presently in sinus rhythm Continue Nadolol 40mg PO daily 4. Hypertension BP high 163/74 HCTZ 12.5mg Nadolol 40mg PO daily 5. Blood loss anemia Hgb: 8.6 down from 9.3 6. DVT prophylaxis ASA 162mg PO daily
--- NOTE | 2018-05-02 16:02 | CP.PCM.CON ---
History of Present Illness - History of Present Illness History of Present Illness: patient is a 72 years of age female I was called to see her for renal consultation because of rhabdomyolysis. The patient gg good history with history of right hip replacement treated with antibiotics and the history from the medical record as follow 72 yo female with history of HTN, Paroxysmal AFib and recent right THR on came in because she was found to have elevated CPK by Dr Mendez in his office. Patient was recently discharged from TCU on 04/15/18 after undergoing PT and IV antibiotics for infection of the right hip. She was sent home with IV Ertapenem and Vancomycin. Vancomycin was stopped 6 days ago and switched to Daptomycin. 3 days ago she started having pain on the right hip and thigh. She was seen in the office and was found to have elevated CPK. She was advised to go to ER for admission for management of rhabdomyolysis. family as noted in the H and P Review of Systems - Constitutional Constitutional: absent: Chills - EENT Nose/Mouth/Throat: absent: Epistaxis - Cardiovascular Cardiovascular: absent: Acrocyanosis, Chest Pain, Dyspnea - Respiratory Respiratory: absent: Cough, Dyspnea, Hemoptysis - Gastrointestinal Gastrointestinal: absent: Abdominal Pain, Coffee Ground Emesis - Musculoskeletal Musculoskeletal: absent: Back Pain, Muscle Cramps - Neurological Neurological: absent: Confusion, Dizziness, Focal Weakness - Endocrine Endocrine: absent: Change in Body Appearance, Flushing - Hematologic/Lymphatic Hematologic: absent: Easy Bleeding Past Patient History - Infectious Disease Hx of Infectious Diseases: None - Tetanus Immunizations Tetanus Immunization: Unknown - Past Medical History & Family History Past Medical History?: Yes - Past Social History Smoking Status: Never Smoked - CARDIAC Hx Atrial Fibrillation: Yes (paroxysmal) Hx Cardia Arrhythmia: No Hx Congestive Heart Failure: No Hx Hypercholesterolemia: No Hx Hypertension: Yes Hx Mitral Valve Prolapse: No Hx Pacemaker: No Hx Peripheral Edema: No - PULMONARY Hx Asthma: No Hx Bronchitis: No Hx Chronic Obstructive Pulmonary Disease (COPD): No Hx Emphysema: No Hx Pneumonia: No Hx Pulmonary Embolism: No Hx Sleep Apnea: No - HEENT Hx Cataracts: Yes - HEMATOLOGICAL/ONCOLOGICAL Hx AIDS: No Hx Human Immunodeficiency Virus (HIV): No - MUSCULOSKELETAL/RHEUMATOLOGICAL Hx Falls: Yes - PSYCHIATRIC Hx Substance Use: No - SURGICAL HISTORY Hx Cholecystectomy: Yes - ANESTHESIA Hx Anesthesia: Yes Hx Anesthesia Reactions: No Meds Allergies/Adverse Reactions: Allergies Allergy/AdvReac Type Severity Reaction Status Date / Time vancomycin Allergy RASH Verified 04/30/18 10:50 citrus fruits Allergy RASH Uncoded 04/08/18 12:30 vit C Allergy RASH Uncoded 03/24/18 06:46 - Medications Medications: Current Medications Aspirin (Ecotrin) 162 mg PO DAILY [facility] Last Admin: 05/02/18 09:25 Dose: 162 mg Docusate Sodium (Colace) 100 mg PO BID [facility] Last Admin: 05/02/18 09:24 Dose: 100 mg Hydrochlorothiazide (Microzide) 12.5 mg PO DAILY [facility] Last Admin: 05/02/18 09:25 Dose: 12.5 mg Sodium Chloride (Sodium Chloride 0.9%) 1,000 mls @ 200 mls/hr IV .Q5H [facility] Last Admin: 05/02/18 06:24 Dose: 200 mls/hr Ertapenem 1 gm/ Sodium (Chloride) 100 mls @ 100 mls/hr IVPB DAILY [facility] Last Admin: 05/02/18 09:24 Dose: 100 mls/hr Linezolid (Zyvox 600mg/300ml D5w) 600 mg in 300 mls @ 300 mls/hr IVPB Q12 [facility] PRN Reason: Protocol Last Admin: 05/02/18 11:21 Dose: 300 mls/hr Nadolol (Corgard) 40 mg PO DAILY [facility] Last Admin: 05/02/18 09:24 Dose: 40 mg Oxycodone/Acetaminophen (Percocet 5/325 Mg Tab) 1 tab PO Q4 PRN PRN Reason: Pain, moderate (4-7) Stop: 05/03/18 15:45 Last Admin: 05/02/18 14:07 Dose: 1 tab Pantoprazole Sodium (Protonix Ec Tab) 40 mg PO DAILY [facility] Last Admin: 05/02/18 09:25 Dose: 40 mg Physical Exam - Constitutional Appears: No Acute Distress - Eye Exam Eye Exam: Conjunctival injection - ENT Exam ENT Exam: Mucous Membranes Moist - Neck Exam Neck exam: Negative for: Lymphadenopathy - Respiratory Exam Respiratory Exam: NORMAL BREATHING PATTERN. absent: Chest Wall Tenderness - Cardiovascular Exam Cardiovascular Exam: absent: Tachycardia, Gallop, JVD, Rubs - GI/Abdominal Exam GI & Abdominal Exam: Normal Bowel Sounds. absent: Guarding - Extremities Exam Extremities exam: Negative for: calf tenderness - Back Exam Back exam: absent: CVA tenderness (L), CVA tenderness (R) - Neurological Exam Neurological exam: Alert - Psychiatric Exam Psychiatric exam: Normal Affect Results - Vital Signs Recent Vital Signs: Last Vital Signs Temp 97.6 F 05/02/18 15:56 Pulse 69 05/02/18 15:56 Resp 20 05/02/18 15:56 BP 163/74 H 05/02/18 15:56 Pulse Ox 100 05/02/18 15:56 - Labs Result Diagrams: 05/01/18 07:00 05/02/18 05:45 Labs: Laboratory Results - last 24 hr 04/30/18 05/02/18 11:50 05:45 Sodium 141 Potassium 3.6 Chloride 112 H Carbon Dioxide 26 Anion Gap 7 L BUN 8 Creatinine 0.6 L Est GFR ( Amer) > 60 Est GFR (Non-Af Amer) > 60 Random Glucose 92 Calcium 8.4 Total Creatine Kinase 610 H Urine Myoglobin TNP Assessment & Plan (1) Elevated CPK Assessment and Plan: Patient admitted with elevated CPK over 1200 which has been coming down the last receiving intravenous fluid to continue this management. Kidney function stable Serum electrolytes is okay We will consider ordering myoglobin in the urine at this point although the patient is improving perhaps no need for it and continue with the gentle hydration and monitor serum uric acid and urine output and serum electrolytes tomorrow morning Status: Acute (2) Status post total hip replacement, right Status: Acute (3) Vitamin D deficiency Status: Acute
--- NOTE | 2018-05-02 19:09 | CP.PCM.PN ---
Subjective - Date & Time of Evaluation Date of Evaluation: 05/02/18 Time of Evaluation: 19:06 - Subjective Subjective: I D NOTE DOING WELL ,NO PAIN CPK IS DECREASED TO 600 HAVE ADDED ZYVOX FOR [employer] WILL DISCUSS DISCHARGE c RENAL HAVE ORDERED [facility] [employer] c [facility] Objective - Vital Signs/Intake and Output Vital Signs (last 24 hours): Temp Pulse Resp BP Pulse Ox 97.6 F 69 20 163/74 H 100 05/02/18 15:56 05/02/18 15:56 05/02/18 15:56 05/02/18 15:56 05/02/18 15:56 - Medications Medications: Current Medications Aspirin (Ecotrin) 162 mg PO DAILY [facility] Last Admin: 05/02/18 09:25 Dose: 162 mg Docusate Sodium (Colace) 100 mg PO BID [facility] Last Admin: 05/02/18 16:43 Dose: Not Given Hydrochlorothiazide (Microzide) 12.5 mg PO DAILY [facility] Last Admin: 05/02/18 09:25 Dose: 12.5 mg Sodium Chloride (Sodium Chloride 0.9%) 1,000 mls @ 200 mls/hr IV .Q5H [facility] Last Admin: 05/02/18 16:43 Dose: 200 mls/hr Ertapenem 1 gm/ Sodium (Chloride) 100 mls @ 100 mls/hr IVPB DAILY [facility] Last Admin: 05/02/18 09:24 Dose: 100 mls/hr Linezolid (Zyvox 600mg/300ml D5w) 600 mg in 300 mls @ 300 mls/hr IVPB Q12 [facility] PRN Reason: Protocol Last Admin: 05/02/18 11:21 Dose: 300 mls/hr Nadolol (Corgard) 40 mg PO DAILY [facility] Last Admin: 05/02/18 09:24 Dose: 40 mg Oxycodone/Acetaminophen (Percocet 5/325 Mg Tab) 1 tab PO Q4 PRN PRN Reason: Pain, moderate (4-7) Stop: 05/03/18 15:45 Last Admin: 05/02/18 14:07 Dose: 1 tab Pantoprazole Sodium (Protonix Ec Tab) 40 mg PO DAILY [facility] Last Admin: 05/02/18 09:25 Dose: 40 mg - Labs Labs: 05/01/18 07:00 05/02/18 05:45
[2018-05-03] MEDS: Oxycodone/Acetaminophen 5/325 mg Tab PO PRN ×2 (01:16→05:14)
[2018-05-03] MEDS: Sodium Chloride 0.9% 1,000 ML IV SCH ×2 (01:16→03:45)
[2018-05-03 08:30] VITALS: BP 138/77; PULSE 65; RESP 18; TEMP 98.6; O2SAT 99
[2018-05-03] MEDS: ERTAPENEM IVPB SCH (08:57)
[2018-05-03] MEDS: [UNRECOGNIZED DRUG - OTHER] IVPB SCH (08:57)
[2018-05-03] MEDS: Pantoprazole 40 mg EC Tab PO SCH (08:59)
[2018-05-03] MEDS: Linezolid 600 mg in D5W 300 ml 600 MG/300 ML BAG IVPB SCH (10:20)
--- NOTE | 2018-05-03 10:57 | CP.PCM.DIS ---
<Sultan Lorraine - Last Filed: 05/03/18 21:41> Provider - Provider Date of Admission: 04/30/18 12:06 Attending physician: Jairon Purdy MD Primary care physician: Brian Mendez MD Time Spent in preparation of Discharge (in minutes): 30 Diagnosis - Discharge Diagnosis (1) Elevated CPK Status: Acute (2) Status post total hip replacement, right Status: Acute Hospital Course - Lab Results Lab Results: Most Recent Lab Values WBC 3.7 K/uL (4.8-10.8) L 05/01/18 07:00 RBC 2.93 Mil/uL (3.80-5.20) L 05/01/18 07:00 Hgb 8.6 g/dL (12.0-16.0) L 05/01/18 07:00 Hct 25.8 % (34.0-47.0) L 05/01/18 07:00 MCV 88.3 fl (81.0-99.0) 05/01/18 07:00 MCH 29.4 pg (27.0-31.0) 05/01/18 07:00 MCHC 33.3 g/dL (33.0-37.0) 05/01/18 07:00 RDW 15.1 % (11.5-14.5) H 05/01/18 07:00 Plt Count 260 K/uL (130-400) 05/01/18 07:00 MPV 9.0 fl (7.2-11.7) 05/01/18 07:00 Neut % (Auto) 55.5 % (50.0-75.0) 05/01/18 07:00 Lymph % (Auto) 26.3 % (20.0-40.0) 05/01/18 07:00 Johnson % (Auto) 7.8 % (0.0-10.0) 05/01/18 07:00 Eos % (Auto) 10.2 % (0.0-4.0) H 05/01/18 07:00 Baso % (Auto) 0.2 % (0.0-2.0) 05/01/18 07:00 Neut # (Auto) 2.0 K/uL (1.8-7.0) 05/01/18 07:00 Lymph # (Auto) 1.0 K/uL (1.0-4.3) 05/01/18 07:00 Johnson # (Auto) 0.3 K/uL (0.0-0.8) 05/01/18 07:00 Eos # (Auto) 0.4 K/uL (0.0-0.7) 05/01/18 07:00 Baso # (Auto) 0.0 K/uL (0.0-0.2) 05/01/18 07:00 Sodium 141 mmol/l (132-148) 05/02/18 05:45 Potassium 3.6 MMOL/L (3.6-5.0) 05/02/18 05:45 Chloride 112 mmol/L (98-107) H 05/02/18 05:45 Carbon Dioxide 26 mmol/L (22-30) 05/02/18 05:45 Anion Gap 7 (10-20) L 05/02/18 05:45 BUN 8 mg/dl (7-17) 05/02/18 05:45 Creatinine 0.6 mg/dl (0.7-1.2) L 05/02/18 05:45 Est GFR ( Amer) > 60 05/02/18 05:45 Est GFR (Non-Af Amer) > 60 05/02/18 05:45 Random Glucose 92 mg/dL (65-105) 05/02/18 05:45 Calcium 8.4 mg/dL (8.4-10.2) 05/02/18 05:45 Magnesium 1.6 MG/DL (1.6-2.3) 04/30/18 11:50 Total Bilirubin 0.7 mg/dl (0.2-1.3) 04/30/18 11:50 AST 60 U/L (14-36) H D 04/30/18 11:50 ALT 33 U/L (9-52) 04/30/18 11:50 Alkaline Phosphatase 132 U/L (38-126) H D 04/30/18 11:50 Total Creatine Kinase 610 U/L (30-135) H 05/02/18 05:45 Total Protein 7.5 G/DL (6.3-8.2) 04/30/18 11:50 Albumin 3.6 g/dL (3.5-5.0) 04/30/18 11:50 Globulin 3.8 gm/dL (2.2-3.9) 04/30/18 11:50 Albumin/Globulin Ratio 0.9 (1.0-2.1) L 04/30/18 11:50 Urine Myoglobin TNP 04/30/18 11:50 Blood Type A POSITIVE 04/30/18 11:50 Antibody Screen Positive 04/30/18 11:50 Antibody Identification Anti E 04/30/18 11:50 BBK History Checked Patient has bt 04/30/18 11:50 - Hospital Course Hospital Course: 72 yo female with history of HTN, Paroxysmal AFib and recent right THR on came in because she was found to have elevated CPK by Dr Mendez in his office. Patient was recently discharged from TCU on 04/15/18 after undergoing PT and IV antibiotics for infection of the right hip. She was sent home with IV Ertapenem and Vancomycin. Vancomycin was stopped 6 days ago and switched to Daptomycin. 3 days ago she started having pain on the right hip and thigh. She was seen in the office and was found to have elevated CPK. Pt was admitted on 04/30/18 for management of rhabdomyolysis. [employer] Ac[employer] Specialist, ID and orthopedist were involved in the pt's care. Over the course of the hospital stays, pt's CKP came down to 333 today. Pt is medically stable to discharge home. Rx was given for zyvox 600 mg IVPB Q12 X 2 weeks and zyvox 600 mg po q12 for 3 days as a back up if she does not get IV abx. Advised to f/u with PMD within 2-3 days. Discharge Exam - Head Exam Head Exam: ATRAUMATIC, NORMOCEPHALIC - Eye Exam Eye Exam: Normal appearance - ENT Exam ENT Exam: Mucous Membranes Moist - Respiratory Exam Respiratory Exam: Clear to PA & Lateral, NORMAL BREATHING PATTERN. absent: Rales, Rhonchi - Cardiovascular Exam Cardiovascular Exam: REGULAR RHYTHM, RRR, +S1, +S2 - GI/Abdominal Exam GI & Abdominal Exam: Normal Bowel Sounds, Soft. absent: Tenderness - Neurological Exam Neurological exam: Alert, Oriented x3 - Psychiatric Exam Psychiatric exam: Normal Affect, Normal Mood - Skin Skin Exam: Normal Color, Warm Discharge Plan - Discharge Medications Prescriptions: Aspirin [Ecotrin] 162 mg PO DAILY #30 tabec Linezolid 600 mg PO Q12 #6 tablet Linezolid 600 mg in NS 300 ml [Zyvox 600mg/300ml NS] 600 mg IVPB Q12 #14 bag oxyCODONE/Acetaminophen [Percocet 5/325 mg Tab] 1 ea PO Q4 PRN #15 tab PRN Reason: Pain, Severe (8-10) - Follow Up Plan Condition: FAIR Disposition: HOME/ ROUTINE Instructions: Rhabdomyolysis (DC), Hypertension (DC), Hypertension (GEN) Additional Instructions: Please follow up with your PMD in 2-3 days Referrals: Brian Mendez MD [Primary Care Provider] - <Caro Moore - Last Filed: 05/04/18 05:18> Provider - Provider Date of Admission: 04/30/18 12:06 Attending physician: Jairon Purdy MD Primary care physician: Brian Mendez MD Hospital Course - Lab Results Lab Results: Most Recent Lab Values WBC 3.7 K/uL (4.8-10.8) L 05/01/18 07:00 RBC 2.93 Mil/uL (3.80-5.20) L 05/01/18 07:00 Hgb 8.6 g/dL (12.0-16.0) L 05/01/18 07:00 Hct 25.8 % (34.0-47.0) L 05/01/18 07:00 MCV 88.3 fl (81.0-99.0) 05/01/18 07:00 MCH 29.4 pg (27.0-31.0) 05/01/18 07:00 MCHC 33.3 g/dL (33.0-37.0) 05/01/18 07:00 RDW 15.1 % (11.5-14.5) H 05/01/18 07:00 Plt Count 260 K/uL (130-400) 05/01/18 07:00 MPV 9.0 fl (7.2-11.7) 05/01/18 07:00 Neut % (Auto) 55.5 % (50.0-75.0) 05/01/18 07:00 Lymph % (Auto) 26.3 % (20.0-40.0) 05/01/18 07:00 Johnson % (Auto) 7.8 % (0.0-10.0) 05/01/18 07:00 Eos % (Auto) 10.2 % (0.0-4.0) H 05/01/18 07:00 Baso % (Auto) 0.2 % (0.0-2.0) 05/01/18 07:00 Neut # (Auto) 2.0 K/uL (1.8-7.0) 05/01/18 07:00 Lymph # (Auto) 1.0 K/uL (1.0-4.3) 05/01/18 07:00 Johnson # (Auto) 0.3 K/uL (0.0-0.8) 05/01/18 07:00 Eos # (Auto) 0.4 K/uL (0.0-0.7) 05/01/18 07:00 Baso # (Auto) 0.0 K/uL (0.0-0.2) 05/01/18 07:00 Sodium 141 mmol/l (132-148) 05/02/18 05:45 Potassium 3.6 MMOL/L (3.6-5.0) 05/02/18 05:45 Chloride 112 mmol/L (98-107) H 05/02/18 05:45 Carbon Dioxide 26 mmol/L (22-30) 05/02/18 05:45 Anion Gap 7 (10-20) L 05/02/18 05:45 BUN 8 mg/dl (7-17) 05/02/18 05:45 Creatinine 0.6 mg/dl (0.7-1.2) L 05/02/18 05:45 Est GFR ( Amer) > 60 05/02/18 05:45 Est GFR (Non-Af Amer) > 60 05/02/18 05:45 Random Glucose 92 mg/dL (65-105) 05/02/18 05:45 Calcium 8.4 mg/dL (8.4-10.2) 05/02/18 05:45 Magnesium 1.6 MG/DL (1.6-2.3) 04/30/18 11:50 Total Bilirubin 0.7 mg/dl (0.2-1.3) 04/30/18 11:50 AST 60 U/L (14-36) H D 04/30/18 11:50 ALT 33 U/L (9-52) 04/30/18 11:50 Alkaline Phosphatase 132 U/L (38-126) H D 04/30/18 11:50 Total Creatine Kinase 333 U/L (30-135) H 05/03/18 10:50 Total Protein 7.5 G/DL (6.3-8.2) 04/30/18 11:50 Albumin 3.6 g/dL (3.5-5.0) 04/30/18 11:50 Globulin 3.8 gm/dL (2.2-3.9) 04/30/18 11:50 Albumin/Globulin Ratio 0.9 (1.0-2.1) L 04/30/18 11:50 Urine Myoglobin TNP 04/30/18 11:50 Blood Type A POSITIVE 04/30/18 11:50 Antibody Screen Positive 04/30/18 11:50 Antibody Identification Anti E 04/30/18 11:50 BBK History Checked Patient has bt 04/30/18 11:50 Attending/Attestation - Attestation I have personally seen and examined this patient.: Yes I have fully participated in the care of the patient.: Yes I have reviewed all pertinent clinical information, including history, physical exam and plan: Yes Notes (Text): 05/04/18 05:18 Seen, examined, discussed with resident Dr. Peters. Agree with findings and plan as above.
--- NOTE | 2018-05-03 12:54 | CP.PCM.PN ---
Subjective - Date & Time of Evaluation Date of Evaluation: 05/03/18 Time of Evaluation: 12:50 - Subjective Subjective: S- pt comfortable= no compalints referable to R hip whatsoever Objective - Vital Signs/Intake and Output Vital Signs (last 24 hours): Temp Pulse Resp BP Pulse Ox 98.6 F 65 18 138/77 99 05/03/18 08:29 05/03/18 08:58 05/03/18 08:29 05/03/18 08:58 05/03/18 08:29 - Medications Medications: Current Medications Aspirin (Ecotrin) 162 mg PO DAILY [facility] Last Admin: 05/03/18 08:59 Dose: 162 mg Docusate Sodium (Colace) 100 mg PO BID [facility] Last Admin: 05/03/18 08:58 Dose: 100 mg Hydrochlorothiazide (Microzide) 12.5 mg PO DAILY [facility] Last Admin: 05/03/18 08:59 Dose: 12.5 mg Sodium Chloride (Sodium Chloride 0.9%) 1,000 mls @ 200 mls/hr IV .Q5H [facility] Last Admin: 05/03/18 03:45 Dose: Not Given Ertapenem 1 gm/ Sodium (Chloride) 100 mls @ 100 mls/hr IVPB DAILY [facility] Last Admin: 05/03/18 08:57 Dose: 100 mls/hr Linezolid (Zyvox 600mg/300ml D5w) 600 mg in 300 mls @ 300 mls/hr IVPB Q12 [facility] PRN Reason: Protocol Last Admin: 05/03/18 10:20 Dose: 300 mls/hr Nadolol (Corgard) 40 mg PO DAILY [facility] Last Admin: 05/03/18 08:58 Dose: 40 mg Oxycodone/Acetaminophen (Percocet 5/325 Mg Tab) 1 tab PO Q4 PRN PRN Reason: Pain, moderate (4-7) Stop: 05/03/18 15:45 Last Admin: 05/03/18 05:14 Dose: 1 tab Pantoprazole Sodium (Protonix Ec Tab) 40 mg PO DAILY [facility] Last Admin: 05/03/18 08:59 Dose: 40 mg - Labs Labs: 05/01/18 07:00 05/02/18 05:45 - Additional Findings Additional findings: Objective musculoskektal stance erect/pelvis level R hip wound beign N/V intact orthopedically orthopedically stable Assessment and Plan - Assessment and Plan (Free Text) Assessment: A- s/p successful R THR- anterior approach P orthopediclly stable for d/c ID and medical notes appreciated orthopedically stable
== END 2018-05-03 14:23 | disposition home health service (06) | DRG 558 ==
LOC: H.ER 09:59 → SUPCPDRO 09:59 → H.ERHOLD 12:06 → H.MEDSURG1 14:43
DX: M62.82 Rhabdomyolysis (principal); D50.0 Iron deficiency anemia secondary to blood loss (chronic); E55.9 Vitamin D deficiency, unspecified; I10 Essential (primary) hypertension; I48.0 Paroxysmal atrial fibrillation; Z96.641 Presence of right artificial hip joint; Z79.82 Long term (current) use of aspirin; Z90.49 Acquired absence of other specified parts of digestive tract